=== PATIENT | male | born 1975 | race Caucasian/White ===

== ENCOUNTER 2020-01-08 13:13 | Outpatient (REF) | payer OTHER, SELFPAY ==
[2020-01-08 16:48] LABS: Estimated Average Glucose 232 mg/dL; Hemoglobin A1c % 9.7 %
[2020-01-08 17:11] LABS: Anion Gap 12 (12-20); Blood Urea Nitrogen 11 mg/dL (9-16); Calcium 8.1 mg/dL (8.4-10.2); Carbon Dioxide 27 mmol/L (22-29); Chloride 101 mmol/L (96-108); Estimated Glomerular Filt Rate > 60; Glucose Random 358 mg/dL (60-115); Potassium 4.3 mmol/l (3.3-5.1); Sodium 136 mmol/L (135-145)
[2020-01-08 17:13] LABS: Creatinine Urine 34.01 mg/dL; Microalbumin Urine < 5.0 mg/L
[2020-01-08 17:24] LABS: Syphilis Screen Nonreactive (Nonreactive)
[2020-01-09 02:30] LABS: CT PCR NOT DETECTED (Not Detect.); NG PCR NOT DETECTED (Not Detect.)
[2020-01-09 08:34] LABS: HBc Num1 0.16 S/CO (0.00-0.79); HBsAGNum1 0.19 S/CO (0.00-0.99); HIV AB/AG Nonreactive (Nonreactive); HIV Num 1 0.12 S/CO (0.00-0.99); Hepatitis B Core Antibody Nonreactive (Nonreactive); Hepatitis B Surface Antigen Negative (Negative); ~Hepatitis B Surface Antibody REACTIVE (Nonreactive); ~Hepatitis C Antibody Nonreactive (Nonreactive)
[2020-01-09 09:06] LABS: Herpes Simplex Type 2 IgG <0.90 index
[2020-01-11 08:15] LABS: Hepatitis A Antibody IgM 0.18 Index (0-0.79); ~Hepatitis A Antibody IgM Nonreactive (Nonreactive)
== END 2020-01-08 13:14 | disposition home or self-care (01) ==
LOC: HO.HMGCLDS 13:13
PROVIDERS: PCP Internal Medicine; Visit Provider Internal Medicine
DX: G25.81 Restless legs syndrome (principal); E55.9 Vitamin D deficiency, unspecified; K21.9 Gastro-esophageal reflux disease without esophagitis; F33.9 Major depressive disorder, recurrent, unspecified; I10 Essential (primary) hypertension; E78.9 Disorder of lipoprotein metabolism, unspecified; E13.9 Other specified diabetes mellitus without complications; A64 Unspecified sexually transmitted disease
CPT/HCPCS: 80048; 82043; 83036; 86695; 86696; 86704; 86706; 86709; 86780; 86803; 87340; 87389; 87491; 87591

== ENCOUNTER 2020-01-09 11:21 | Outpatient (REF) | payer OTHER, SELFPAY ==
--- NOTE | 2020-01-09 11:27 | XR_ITS ---
EXAMINATION: XR BILATERAL HIPS WITH AP PELVIS CLINICAL INFORMATION: Pain in right hip COMPARISON: None TECHNIQUE: AP view of the pelvis with AP and frog-leg lateral views of both hips FINDINGS: No fracture or dislocation seen. There is mild degenerative arthrosis of the right hip with superior acetabular sclerosis and osteophytosis. Minimal degenerative changes of the left hip. There is enthesopathy at the left greater trochanter. Sacroiliac joints are patent. XR/XR hip BI w PEL1V IMPRESSION: Mild degenerative changes bilaterally, as described above.
--- NOTE | 2020-01-09 11:27 | XR_ITS ---
EXAMINATION: XR LUMBOSACRAL SPINE CLINICAL INFORMATION: Low back pain COMPARISON: None TECHNIQUE: AP and lateral views of the lumbar spine and lateral view of the lumbosacral junction. FINDINGS: There is transitional lumbosacral anatomy. 5 nonrib-bearing lumbar type vertebral bodies are seen. The next segment is transitional, nearly fully sacralized on the left but with a prominent transverse process on the right. This appears to be a sixth lumbar vertebra with a full sized L6-S1 disc space. There is a suggestion of mild lower lumbar facet arthropathy but no compression fracture is seen. There is mild anterior osteophytosis at L4-5 XR/XR lumbar spine 2-3V IMPRESSION: Transitional lumbosacral anatomy as described above. Recommend careful anatomic localization prior to any intervention or surgery. There is lower lumbar facet arthropathy. No acute osseous abnormality.
== END 2020-01-09 11:22 | disposition home or self-care (01) ==
LOC: HO.HMGCX 11:21
PROVIDERS: PCP Internal Medicine; Visit Provider Internal Medicine
DX: M25.551 Pain in right hip (principal); M54.5 Low back pain
CPT/HCPCS: 72100; 73521

== ENCOUNTER 2020-09-20 14:14 | Outpatient (REF) | payer OTHER, SELFPAY ==
[2020-09-20 16:37] LABS: MANUAL DIFF FLAG NO
[2020-09-20 16:41] LABS: Basophils Percent Auto 0.3 % (0-2); Eosinophils Absolute Auto 0.3 X10*3/uL (0.0-0.4); Eosinophils Percent Auto 2.6 % (0-4); Hematocrit 43.5 % (42-52); Imm Gran Abs Auto 0.03 X10*3/uL (0.00-0.03); Imm Gran Pct Auto 0.3 % (0.0-0.4); Lymphocytes Absolute Auto 1.6 X10*3/uL (1.2-4.9); Lymphocytes Percent Auto 16.1 % (20-40); Mean Corpuscular HGB Conc 34.5 g/dl (31.0-36.0); Mean Corpuscular Hemoglobin 29.7 pg (27.0-33.0); Mean Corpuscular Volume 86.1 fL (80-98); Mean Platelet Volume 12.2 fL (9.4-12.4); Monocytes Absolute Auto 0.5 X10*3/uL (0.1-1.2); Monocytes Percent Auto 4.6 % (2-11); Neutrophils Absolute Auto 7.5 X10*3/uL (2.0-8.3); Neutrophils Percent Auto 76.1 % (45-73); Platelet Count 197 X10*3/uL (160-400); Red Blood Count 5.05 X10*6/uL (4.60-5.80); Red Cell Distribution Width 12.7 % (11.0-16.0); White Blood Count 9.9 X10*3/uL (4.8-10.8)
[2020-09-20 16:47] LABS: Estimated Average Glucose 312 mg/dL; Hemoglobin A1c % 12.5 %
[2020-09-20 17:06] LABS: Creatinine Urine 28.97 mg/dL; Microalbumin Urine < 5.0 mg/L
[2020-09-20 18:56] LABS: Alanine Aminotransferase 60 U/L (0-40); Albumin Level 4.1 g/dL (3.5-5.0); Alkaline Phosphatase 125 U/L (39-117); Anion Gap 13 (12-20); Aspartate Amino Transferase 51 U/L (5-37); Bilirubin Total 0.7 mg/dL (0.0-1.0); Blood Urea Nitrogen 10 mg/dL (9-16); Calcium 8.7 mg/dL (8.4-10.2); Carbon Dioxide 26 mmol/L (22-29); Chloride 100 mmol/L (96-108); Estimated Glomerular Filt Rate > 60; Glucose Random 509 mg/dL (60-115); Potassium 4.4 mmol/L (3.3-5.1); Sodium 135 mmol/L (135-145); Total Protein 6.8 g/dL (6.5-8.0)
[2020-09-21 08:26] LABS: LDL Cholesterol Direct 82 mg/dL (<100)
== END 2020-09-20 14:15 | disposition home or self-care (01) ==
LOC: HO.HMGCLDS 14:14
PROVIDERS: PCP Internal Medicine; Visit Provider Internal Medicine
DX: E11.21 Type 2 diabetes mellitus with diabetic nephropathy (principal); E66.09 Other obesity due to excess calories; E78.9 Disorder of lipoprotein metabolism, unspecified; F33.9 Major depressive disorder, recurrent, unspecified; G25.81 Restless legs syndrome; I10 Essential (primary) hypertension; K21.9 Gastro-esophageal reflux disease without esophagitis; R80.9 Proteinuria, unspecified
CPT/HCPCS: 36415; 80053; 82043; 83036; 83721; 85025

== ENCOUNTER 2021-10-21 13:29 | Outpatient (REF) | payer OTHER, SELFPAY ==
[2021-10-21 17:42] LABS: Alanine Aminotransferase 33 U/L (0-40); Albumin Level 3.9 g/dL (3.5-5.0); Alkaline Phosphatase 96 U/L (39-117); Anion Gap 13 (12-20); Aspartate Amino Transferase 29 U/L (5-37); Blood Urea Nitrogen 9 mg/dL (9-16); Calcium 8.6 mg/dL (8.4-10.2); Carbon Dioxide 29 mmol/L (22-29); Chloride 99 mmol/L (96-108); Estimated Glomerular Filt Rate > 60; Glucose Random 295 mg/dL (60-115); Potassium 4.5 mmol/L (3.3-5.1); Sodium 136 mmol/L (135-145); Total Protein 6.7 g/dL (6.5-8.0)
[2021-10-21 17:47] LABS: Estimated Average Glucose 232 mg/dL; Hemoglobin A1c % 9.7 %
[2021-10-24 06:26] LABS: LDL Cholesterol Direct 128 mg/dL (<100)
== END 2021-10-21 13:30 | disposition home or self-care (01) ==
LOC: HO.HMGCLDS 13:29
PROVIDERS: PCP Internal Medicine; Visit Provider Internal Medicine
DX: E11.65 Type 2 diabetes mellitus with hyperglycemia (principal); H53.8 Other visual disturbances
CPT/HCPCS: 36415; 80053; 83036; 83721

== ENCOUNTER → 2022-03-11 13:04 | Outpatient (BNVA) | payer OTHER, SELFPAY | PROVIDERS: PCP Internal Medicine; Visit Provider Nurse Practitioner Family | DX: R14.0 Abdominal distension (gaseous) (principal); R10.11 Right upper quadrant pain; R10.10 Upper abdominal pain, unspecified; K21.9 Gastro-esophageal reflux disease without esophagitis; K59.04 Chronic idiopathic constipation | CPT/HCPCS: 99202 ==

== ENCOUNTER 2022-03-18 15:06 | Outpatient (REF) | payer OTHER, SELFPAY ==
[2022-03-18 16:46] LABS: Hematocrit 50.1 % (42.0-52.0); Hemoglobin 17.1 g/dl (14.0-18.0); Mean Corpuscular HGB Conc 34.1 g/dl (31.0-36.0); Mean Corpuscular Hemoglobin 28.8 pg (27.0-33.0); Mean Corpuscular Volume 84.5 fL (80.0-98.0); Mean Platelet Volume 11.2 fL (9.4-12.4); Platelet Count 252 X10*3/uL (160-400); Red Blood Count 5.93 X10*6/uL (4.60-5.80); Red Cell Distribution Width 13.2 % (11.0-16.0); White Blood Count 13.1 X10*3/uL (4.8-10.8)
[2022-03-18 16:46] LABS: Appearance Urine Clear; Color Urine Dark Yellow; Glucose Urine UA Negative (Negative); Leukocyte Esterase Urine Negative (Negative); Nitrite Urine Negative (Negative); Urine Blood Negative (Negative); Urine Ketones Trace mg/dL (Negative); Urine Protein Negative (Neg-Trace)
[2022-03-18 16:51] LABS: Estimated Average Glucose 163 mg/dL; Hemoglobin A1c % 7.3 %
[2022-03-18 17:20] LABS: Alanine Aminotransferase 17 U/L (0-40); Albumin Level 4.4 g/dL (3.5-5.0); Alkaline Phosphatase 97 U/L (39-117); Anion Gap 11 (12-20); Aspartate Amino Transferase 21 U/L (5-37); Bilirubin Total 0.8 mg/dL (0.0-1.0); Blood Urea Nitrogen 9 mg/dL (9-16); Calcium 9.2 mg/dL (8.4-10.2); Carbon Dioxide 27 mmol/L (22-29); Chloride 105 mmol/L (96-108); Estimated Glomerular Filt Rate > 60; Glucose Random 104 mg/dL (60-115); Potassium 3.8 mmol/L (3.3-5.1); Sodium 139 mmol/L (135-145); Total Protein 7.3 g/dL (6.5-8.0)
[2022-03-18 17:42] LABS: TSH reflex Free T4 1.73 uIU/mL (0.32-4.0)
[2022-03-22 09:52] LABS: Transglutaminase Ab IgG <1.0 U/mL; Transglutaminase IgA <1.0 U/mL
== END 2022-03-18 15:07 | disposition home or self-care (01) ==
LOC: HO.HMGCLDS 15:06
PROVIDERS: Nurse Practitioner Family; PCP Internal Medicine; Visit Provider Internal Medicine
DX: K59.00 Constipation, unspecified (principal); R10.9 Unspecified abdominal pain; E78.9 Disorder of lipoprotein metabolism, unspecified; I10 Essential (primary) hypertension; F33.9 Major depressive disorder, recurrent, unspecified; K21.9 Gastro-esophageal reflux disease without esophagitis; E11.21 Type 2 diabetes mellitus with diabetic nephropathy; R80.9 Proteinuria, unspecified
CPT/HCPCS: 36415; 80053; 81003; 83036; 84443; 85027; 86364

== ENCOUNTER 2022-03-19 11:36 | Outpatient (REF) | payer OTHER, SELFPAY ==
[2022-03-28 17:28] LABS: Pancreatic Elastase-1 >500 mcg/g
== END 2022-03-19 11:37 | disposition home or self-care (01) ==
LOC: HO.LNP 11:36
PROVIDERS: Visit Provider Nurse Practitioner Family
DX: R10.9 Unspecified abdominal pain (principal)
CPT/HCPCS: 82656

== ENCOUNTER 2022-03-25 12:40 | Outpatient (REF) | payer OTHER, SELFPAY ==
--- NOTE | 2022-03-25 10:30 | EMG_ITS ---
Please see scanned EMG / Nerve Conduction Report. MTDD
== END 2022-03-25 12:41 | disposition home or self-care (01) ==
LOC: HO.NEURO 12:40
PROVIDERS: PCP Internal Medicine; Visit Provider Internal Medicine
DX: R20.2 Paresthesia of skin (principal)
CPT/HCPCS: 95885; 95913

== ENCOUNTER → 2022-04-01 13:45 | Outpatient (BNVA) | payer OTHER, SELFPAY | PROVIDERS: PCP Internal Medicine; Visit Provider Psychiatry & Neurology Neurology | DX: R20.2 Paresthesia of skin (principal); R06.83 Snoring; M54.2 Cervicalgia; G47.33 Obstructive sleep apnea (adult) (pediatric); G47.10 Hypersomnia, unspecified; F41.9 Anxiety disorder, unspecified; F32.A Depression, unspecified | CPT/HCPCS: 99202 ==

== ENCOUNTER 2022-04-03 09:52 | Outpatient (REF) | payer OTHER, SELFPAY ==
--- NOTE | ~2022-04-03 | US_ITS ---
EXAMINATION: US ABDOMEN COMPLETE CLINICAL INFORMATION: Unspecified abdominal pain. COMPARISON: None TECHNIQUE: Real-time imaging of the abdominal viscera. FINDINGS: PANCREAS: Normal. ABDOMINAL AORTA: The proximal, mid, and distal segments are normal in caliber. INFERIOR VENA CAVA: Visualized portions are normal. LIVER: There is mild hepatomegaly, with a longitudinal span of 17.5 cm. The liver contour is normal. There is diffuse increased liver parenchymal echogenicity. No focal hepatic lesion. There is no intrahepatic biliary duct dilatation seen. GALLBLADDER: Normal. The gallbladder is physiologically distended without evidence of stones, sludge, polyps, wall thickening or pericholecystic fluid. COMMON BILE DUCT: Normal in caliber measuring 0.2 cm in diameter. RIGHT KIDNEY: Normal. No hydronephrosis. No renal calculi or focal parenchymal lesions. The kidney measures 13.2 cm in maximum dimension. LEFT KIDNEY: Normal. No hydronephrosis. No renal calculi or focal parenchymal lesions. The kidney measures 11.8 cm in maximum dimension. SPLEEN: Normal. The spleen measures 11.1 cm in maximum dimension. FREE FLUID: None. US/US abdomen complete IMPRESSION: 1. There is mild hepatomegaly. 2. There is generalized increase in hepatic echotexture, consistent with fatty infiltration or hepatocellular disease. Please correlate clinically. No focal hepatic mass or intrahepatic biliary dilatation is seen.
== END 2022-04-03 09:53 | disposition home or self-care (01) ==
LOC: HO.US 09:52
PROVIDERS: Visit Provider Nurse Practitioner Family
DX: R10.9 Unspecified abdominal pain (principal)
CPT/HCPCS: 76700

== ENCOUNTER 2022-04-13 | Outpatient (REF) | payer OTHER, SELFPAY ==
[2022-04-15 12:05] LABS: H Pylori Breath Test Negative (Negative)
== END 2022-04-13 00:01 | disposition home or self-care (01) ==
LOC: HO.LNP
PROVIDERS: Visit Provider Nurse Practitioner Family
DX: Z11.0 Encounter for screening for intestinal infectious diseases (principal)
CPT/HCPCS: 83013

== ENCOUNTER → 2022-04-13 11:45 | Outpatient (BNVA) | payer OTHER, SELFPAY | PROVIDERS: PCP Internal Medicine; Visit Provider Nurse Practitioner Family | DX: Z11.0 Encounter for screening for intestinal infectious diseases (principal) | CPT/HCPCS: 99211 ==

== ENCOUNTER → 2022-06-10 12:54 | Outpatient (BNVA) | payer OTHER, SELFPAY | PROVIDERS: PCP Internal Medicine; Visit Provider Nurse Practitioner Family | DX: K59.04 Chronic idiopathic constipation (principal); K21.9 Gastro-esophageal reflux disease without esophagitis; R14.0 Abdominal distension (gaseous) | CPT/HCPCS: 99212 ==

== ENCOUNTER 2022-09-16 12:53 | Outpatient (AMB) | payer OTHER, SELFPAY ==
[2022-09-16 12:51] VITALS: BP 122/80; PULSE 74; O2SAT 96; BMI 36.1
--- NOTE | 2022-09-16 12:51 | A.OFFPC_ITS ---
Vital Signs 09/16/22 12:51 Height 5 ft 11 in Weight 259 lb BMI 36.1 BP 122/80 Blood Pressure Location Lt brachial Position Sitting Pulse 74 Pulse Source Pulse Oximeter Pulse Oximetry (%) 96 Oxygen Delivery Method Room Air Intake Visit Reasons: 3m follow up Allergies No Known Allergies Allergy (Verified 06/12/22 10:38) Medication List - Last Reconciled 09/16/22 by Yadira Wilder MD amlodipine 10 mg PO DAILY 90 days blood sugar diagnostic (FreeStyle Lite Strips) Use to check blood sugars three times daily and if symptomatic with hypo/hyperglycemia cholecalciferol (vitamin D3) 25 mcg PO DAILY 90 days citalopram 40 mg PO DAILY docusate sodium 100 mg PO BEDTIME famotidine 40 mg PO DAILY gabapentin 1 cap qam 2 caps qhs orally; 90 days insulin glargine U-300 conc 35 units in the morning and 25 units at night 30 days lancets (FreeStyle Lancets) Use to check blood sugars three times daily and if symptomatic with hypo/hyperglycemia nystatin 1 appl topical DAILY 30 days pantoprazole 20 mg PO BID 90 days pen needle, diabetic (Easy Comfort Pen Ragan) Once at night polyethylene glycol 3350 (Miralax) 17 grams PO DAILY Tobacco use date assessed: 09/16/22 Dental Screening Dental Screen Date: 09/16/22 Did you have a dental visit in the last 12 months?: No Was dental information given to patient?: No HPI 3m follow up HPI Details Patient is a 47-year-old gentleman came in today for his regular follow-up appointment Diabetes mellitus: Patient is on 25 units of long-acting insulin at night and 35 units in the morning patient did not do the labs he was supposed to before this visit his Hba1c is 7.4 today He has seen sleep specialist and is now using the CPAP machine h Taking sertraline 25 mg for anxiety patient is feeling better Gabapentin 200 mg at night through Dr. Porras neurology Obesity with a BMI of 33.8 patient need to lose weight he is trying Blood pressure is stable patient is on amlodipine 10 mg tolerating medication GERD is stable with pantoprazole 20 mg b.i.d. Constipation is stable with stool softeners and fiber supplement. He has gained more weight his BMI is down 36.1 Complaining of burning sensation, patient says that it started afte hav oral sex with his girlfriend who had vaginitis He has used list strain mouthwash which has caused burning sensation in his tongue. On exam he has white coating over his tongue I have sent in anti fungal lows inches to see if that will help the patient. He is to get back to me with update after finishing the lozenges. Follow-up 3 months [facility] Medical History Anxiety Chronic GERD Depression Depression, major, recurrent Diabetes 1.5, managed as type 2 Diabetic nephropathy Herpes simplex type 1 antibody positive Hip pain, right Hypersomnia Hypertension, essential Lipid disorder Lumbar pain Microalbuminuria Neck pain Obstructive sleep apnea Paresthesias Restless leg syndrome Snoring Vitamin D deficiency Surgical History H/O knee surgery History of esophagogastroduodenoscopy (EGD) Hx of colonoscopy No pertinent past surgical history Family History Father Stroke Diabetes mellitus Kidney disease Mother HTN (hypertension) Brother No problems noted. Sister No problems noted. Sister No problems noted. Sister No problems noted. Social History Housing: Apartment Alcohol intake: current Alcohol intake frequency: a few times a month Patient Tobacco Use Status: Former Tobacco user Cigarettes Per Day: 1 e-Cigarette/Vaping Use: Former Use (vape) Substance Use Type: Marijuana Current occupational status: employed Cognitive needs: No Hearing needs: No Vision needs: Yes Questionnaire Thrive Questionnaire Date Thrive assessed: 03/18/22 AUDIT C Alcohol Use Questionnaire (AUDIT-C) 1. How often do you have a drink containing alcohol?: Monthly or less 2. How many drinks containing alcohol do you have on a typical day when you are drinking?: 1 or 2 3. How often do you have six or more drinks on one occasion?: Never Total Score: 1 ELIZABETH-7 AMB Questionnaire ELIZABETH-7 Date ELIZABETH - 7 assessed: 03/18/22 Source: Developed by Drs. Bakari Escobedo, Shireen Riley, Luis Leo and colleagues, with an educational janay from [employer]. Review of Systems Const Denies chills and Denies fever(s) ENT Denies epistaxis and Denies nasal discharge Card Denies chest pain Resp Denies chest congestion, Denies cough and Denies hemoptysis GI Denies diarrhea and Denies nausea Skin/Breast Denies rash Neuro Reports no additional complaints Psych Reports no additional complaints Endo Reports no additional complaints Physical exam (Primary Care) Vital Signs: Last Vital Signs Pulse 74 09/16/22 12:51 BP 122/80 09/16/22 12:51 Pulse Ox 96 09/16/22 12:51 Oxygen Delivery Method Room Air 09/16/22 12:51 BMI result Body Mass Index 36.1 Tobacco/Smoking Status: Tobacco use Status Tobacco use date assessed 09/16/22 09/16/22 12:57 Patient Tobacco Use Status Former Tobacco user 09/16/22 12:52 e-Cigarette/Vaping Use Former Use (vape) 09/16/22 12:57 Thrive Assessment: Date of Thrive Assessment Date Thrive assessed 03/18/22 09/16/22 12:52 Const General: cooperative, comfortable and no acute distress Orientation/consciousness: patient oriented x3 HENMT Head: Yes normocephalic Mouth/tongue images: 1. White coating on the tongue Eyes General: appearance normal, both eyes and all related structures Neck Neck: Yes supple Resp Effort & Inspection: normal respiratory effort, no cough and no stridor Cardio Rhythm: regular rhythm Heart sounds: S1 normal heart sound present and S2 normal heart sound present Skin General skin exam: turgor normal Neuro General: patient oriented x3, tone normal and moves all extremities Extrem Right lower extremity: no edema Left lower extremity: no edema Results AMB Hemoglobin A1c AMB Hemoglobin A1c 7.4 % Last Edit by Niru Herring CMA on 09/16/22 13:10 Results Reviewed Results Reviewed: Laboratory Last Values Hgb A1c (Clinic) 7.4 % (4.0-6.0) H 09/16/22 13:01 Assessment and Plan Assessment & Plan (1) Diabetes 1.5, managed as type 2: Code(s): E13.9 - Other specified diabetes mellitus without complications (2) Lipid disorder: Code(s): E78.9 - Disorder of lipoprotein metabolism, unspecified (3) Hypertension, essential: Code(s): I10 - Essential (primary) hypertension (4) Depression, major, recurrent: Code(s): F33.9 - Major depressive disorder, recurrent, unspecified (5) Chronic GERD: Code(s): K21.9 - Gastro-esophageal reflux disease without esophagitis (6) Diabetic nephropathy: Code(s): E11.21 - Type 2 diabetes mellitus with diabetic nephropathy (7) Microalbuminuria: Code(s): R80.9 - Proteinuria, unspecified (8) Onychomycosis: Code(s): B35.1 - Tinea unguium Plan Patient is a 47-year-old gentleman came in today for his regular follow-up appointment Diabetes mellitus: Patient is on 25 units of long-acting insulin at night and 35 units in the morning patient did not do the labs he was supposed to before this visit his Hba1c is 7.4 today He has seen sleep specialist and is now using the CPAP machine h Taking sertraline 25 mg for anxiety patient is feeling better Gabapentin 200 mg at night through Dr. Porras neurology Obesity with a BMI of 33.8 patient need to lose weight he is trying Blood pressure is stable patient is on amlodipine 10 mg tolerating medication GERD is stable with pantoprazole 20 mg b.i.d. Constipation is stable with stool softeners and fiber supplement. He has gained more weight his BMI is down 36.1 Complaining of burning sensation, patient says that it started afte hav oral sex with his girlfriend who had vaginitis He has used list strain mouthwash which has caused burning sensation in his tongue. On exam he has white coating over his tongue I have sent in anti fungal lows inches to see if that will help the patient. He is to get back to me with update after finishing the lozenges. Follow-up 3 months Orders: Orders Microalbumin, Random (w Creat) Today E13.9 - Other specified diabetes mellitus without complications, E78.9 - Disorder of lipoprotein metabolism, unspecified, F33.9 - Major depressive disorder, recurrent, unspecified, I10 - Essential (primary) hypertension Comprehensive [place]. Panel Fast Today E11.21 - Type 2 diabetes mellitus with diabetic nephropathy, E13.9 - Other specified diabetes mellitus without complications, E78.9 - Disorder of lipoprotein metabolism, unspecified, F33.9 - Major depressive disorder, recurrent, unspecified, I10 - Essential (primary) h ypertension, K21.9 - Gastro-esophageal reflux disease without esophagitis, R80.9 - Proteinuria, unspecified Lipid Panel Today E11.21 - Type 2 diabetes mellitus with diabetic nephropathy, E13.9 - Other specified diabetes mellitus without complications, E78.9 - Disorder of lipoprotein metabolism, unspecified, F33.9 - Major depressive disorder, recurrent, unspecified, I10 - Essential (primary) hypertension, K21.9 - Gastro-esophageal reflux disease without esophagitis, R80.9 - Proteinuria, unspecified Complete Blood Count Auto Diff Today E11.21 - Type 2 diabetes mellitus with diabetic nephropathy, E13.9 - Other specified diabetes mellitus without complications, E78.9 - Disorder of lipoprotein metabolism, unspecified, F33.9 - Major depressive disorder, recurrent, unspecified, I10 - Essential (primary) hypertension, K21.9 - Gastro-esophageal reflux disease without esophagitis, R80.9 - Proteinuria, unspecified AMB Hemoglobin A1c Today E11.65 - Type 2 diabetes mellitus with hyperglycemia Medications: New clotrimazole 10 mg mucous membrane TID 15 tabs 0RF 5 days B37.0 - Candidal stomatitis Coding Level of Care Code Est Pt Level 4 (78426) Diagnoses Diabetes 1.5, managed as type 2 E13.9 Lipid disorder E78.9 Hypertension, essential I10 Depression, major, recurrent F33.9 Chronic GERD K21.9 Diabetic nephropathy E11.21 Microalbuminuria R80.9 Onychomycosis B35.1
== END 2022-09-16 14:13 | disposition home or self-care (01) ==
PROVIDERS: Visit Provider Internal Medicine
DX: E13.9 Other specified diabetes mellitus without complications (principal); I10 Essential (primary) hypertension; F33.9 Major depressive disorder, recurrent, unspecified; K21.9 Gastro-esophageal reflux disease without esophagitis; E11.21 Type 2 diabetes mellitus with diabetic nephropathy; E78.9 Disorder of lipoprotein metabolism, unspecified; R80.9 Proteinuria, unspecified; B35.1 Tinea unguium; E11.65 Type 2 diabetes mellitus with hyperglycemia
CPT/HCPCS: 83036; 99214

== ENCOUNTER 2022-09-16 13:14 | Outpatient (REF) | payer OTHER, SELFPAY ==
[2022-09-16 16:11] LABS: MANUAL DIFF FLAG NO
[2022-09-16 16:20] LABS: Basophils Percent Auto 0.4 % (0-2); Eosinophils Absolute Auto 0.2 X10*3/uL (0.0-0.4); Eosinophils Percent Auto 1.9 % (0-4); Hematocrit 44.5 % (42.0-52.0); Hemoglobin 15.3 g/dl (14.0-18.0); Imm Gran Abs Auto 0.02 X10*3/uL (0.00-0.03); Imm Gran Pct Auto 0.2 % (0.0-0.4); Lymphocytes Absolute Auto 1.8 X10*3/uL (1.2-4.9); Lymphocytes Percent Auto 18.8 % (20-40); Mean Corpuscular HGB Conc 34.4 g/dl (31.0-36.0); Mean Corpuscular Hemoglobin 29.5 pg (27.0-33.0); Mean Corpuscular Volume 85.7 fL (80.0-98.0); Mean Platelet Volume 11.5 fL (9.4-12.4); Monocytes Absolute Auto 0.6 X10*3/uL (0.1-1.2); Monocytes Percent Auto 5.8 % (2-11); Neutrophils Absolute Auto 7.1 x10*3/uL (2.0-8.3); Neutrophils Percent Auto 72.9 % (45-73); Platelet Count 212 X10*3/uL (160-400); Red Blood Count 5.19 X10*6/uL (4.60-5.80); White Blood Count 9.7 X10*3/uL (4.8-10.8)
[2022-09-16 16:50] LABS: Creatinine Urine 141.73 mg/dL; Microalbum/Creatinine Ratio Ur 6.3 ug/mg cr
[2022-09-17 02:41] LABS: Alanine Aminotransferase 18 U/L (0-40); Alkaline Phosphatase 97 U/L (39-117); Anion Gap 10 (12-20); Aspartate Amino Transferase 21 U/L (5-37); Blood Urea Nitrogen 10 mg/dL (9-16); Calcium 8.5 mg/dL (8.4-10.2); Carbon Dioxide 27 mmol/L (22-29); Chloride 104 mmol/L (96-108); Cholesterol 198 mg/dL; Estimated Glomerular Filt Rate > 60; Glucose Fasting 179 mg/dL (60-99); HDL Cholesterol 32 mg/dL; LDL Cholesterol Calculated 131 mg/dl; Potassium 4.2 mmol/L (3.3-5.1); Sodium 137 mmol/L (135-145); Total Protein 6.9 g/dL (6.5-8.0); Triglycerides 176 mg/dL
== END 2022-09-16 13:15 | disposition home or self-care (01) ==
LOC: HO.HMGCLDS 13:14
PROVIDERS: PCP Internal Medicine; Visit Provider Internal Medicine
DX: E11.21 Type 2 diabetes mellitus with diabetic nephropathy (principal); E78.9 Disorder of lipoprotein metabolism, unspecified; F33.9 Major depressive disorder, recurrent, unspecified; I10 Essential (primary) hypertension; K21.9 Gastro-esophageal reflux disease without esophagitis; R80.9 Proteinuria, unspecified
CPT/HCPCS: 36415; 80053; 80061; 82043; 85025

== ENCOUNTER 2023-05-25 15:42 | Outpatient (AMB) | payer OTHER, SELFPAY ==
[2023-05-25 15:54] VITALS: BP 140/86; PULSE 75; BMI 36.6
--- NOTE | 2023-05-25 15:54 | MHC.OFFVIS ---
Intake Vital Signs 05/25/23 15:54 Height 5 ft 11 in Weight 262 lb 5.601 oz BMI 36.6 BP 140/86 H Blood Pressure Location Rt brachial Position Sitting Pulse 75 Intake Visit Reasons: follow up seen at [facility] Intake Note: Patient presents to in offfice visit today in follow up after ED visit. CC: Patient was seen at [facility] ED on 03/24/23 with c// constipaion and abdominal pain. Patient states that he was told he might have UC and Chron's. Patient placed on a course of Augmentin which he completed. He states he feels the same and c/o upper abdominal pain, nausea, dizziness, weakness, tirednesses, and constipation that sometimes fluctuates to diarrhea. Patient states that sometimes when he is having a BM he feels dizzy, starts to sweat, and has SOB. Wire Hanger Required: No Accompanied by: Self / Same As Patient Allergies No Known Allergies Allergy (Verified 05/25/23 16:04) HPI follow up seen at [facility] HPI Details LAST VISIT: Abdominal bloating Occasional abdominal bloating if he does not have a bowel movement and couple days. Patient was encouraged to take MiraLax and stool softener daily Chronic GERD Continue current dose of pantoprazole. Patient was encouraged to lose weight. Avoid dietary triggers late night snacking. Staying upright for minimum 3 hours after meals discussed with patient Chronic idiopathic constipation Continue MiraLax and Colace. Patient was encouraged to increase fluid intake and activity to promote better bowel motility. Patient will return in 3 months, sooner on as needed basis. Patient is agreeable to this plan and verbalizes understanding of instructions. He was given the opportunity to ask questions and all questions answered. ? Thank you for allowing me to participate in his care Plan Medications Discontinued famotidine Discontinued Reason: Doctor's Order 20 mg PO BID 60 tabs 3RF K29.70 - Gastritis, unspecified, without bleeding TODAY'S VISIT Patient is here today for following up ED visit. Patient was seen in March at [facility] for severe abdominal discomfort. Patient had no BM for 15 days. Abdominal pain and discomfort. CT scan showed no acute processes except for mild colonic wall thickening that could present colitis. No true constipation was identified on CT scan. However this was done without oral contrast. Patient was given script for senna and antibiotics. Today patient reports that he continues to be constipated moving his bowels little better, however he continues to have no BM for 3-4 days. Patient states that most of the time he has watery stools. Reports postprandial abdominal bloating. Rarely has a normal bowel movement. Patient was seen last May and was supposed to follow-up to discuss going for colonoscopy. Patient states that he had a colonoscopy about 5 years ago. Patient denies melena, hematochezia, unintentional weight loss or ribbon like stools. Patient does report that he has external hemorrhoids that are increased in size when he has frequent loose stools. Patient reports dyspepsia without dysphagia or odynophagia. Patient states that he was placed on low-dose pantoprazole twice a day, however he continues to have a postprandial epigastric pain. Patient reports that he has been taking care of his elderly mom who is bed-bound. Patient denies any fever or chills. Not on any particular diet. His symptoms of postprandial abdominal bloating and loose stools are not always associated to meals. Patient is aware that he is unable to have any cheese or lactose as his symptoms of acid reflux and loose stools will get worse. [facility] Medical History Paresthesias Depression Anxiety Neck pain Hypersomnia Snoring Obstructive sleep apnea Herpes simplex type 1 antibody positive Lumbar pain Hip pain, right Microalbuminuria Diabetic nephropathy Restless leg syndrome Vitamin D deficiency Chronic GERD Depression, major, recurrent Hypertension, essential Lipid disorder Diabetes 1.5, managed as type 2 Surgical History History of esophagogastroduodenoscopy (EGD) Hx of colonoscopy H/O knee surgery No pertinent past surgical history Family History Father Stroke Diabetes mellitus Kidney disease Mother HTN (hypertension) Brother No problems noted. Sister No problems noted. Sister No problems noted. Sister No problems noted. Social History Housing: Apartment Alcohol intake: current Alcohol intake frequency: a few times a month Patient Tobacco Use Status: Former Tobacco user Cigarettes Per Day: 1 e-Cigarette/Vaping Use: Former Use (vape) Substance Use Type: Marijuana Current occupational status: employed Cognitive needs: No Hearing needs: No Vision needs: Yes Review of Systems Const Denies weight gain and Denies weight loss ENT Reports no additional complaints, Denies dysphagia and Denies odynophagia Card Reports no additional complaints Resp Reports no additional complaints GI Reports abdominal pain, Denies belching, Denies melena, Reports bloating, Reports constipation, Denies dysphagia, Denies excessive flatus, Denies dyspepsia, Reports heartburn, Denies diarrhea, Reports loose stools, Denies nausea, Denies odynophagia and Denies vomiting Reports no additional complaints Musc Reports no additional complaints Neuro Reports no additional complaints Psych Reports no additional complaints Endo Reports no additional complaints Physical Exam Vital Signs: Last Vital Signs Pulse 75 05/25/23 15:54 BP 140/86 H 05/25/23 15:54 BMI result Body Mass Index 36.6 Const General: healthy appearing and no acute distress Nutritional Appearance: obese Orientation/consciousness: patient oriented x3 Resp Effort & Inspection: normal respiratory effort, able to speak in complete sentences, no tracheal deviation and symmetric chest movement Auscultation: clear to auscultation bilaterally Cardio Rate: regular rate GI Inspection: Yes normal to inspection, No distended and Yes obesity Palpation (GI): Soft to palpation, not firm, nontender and No hepatosplenomegaly present Auscultation: normal bowel sounds General: Yes no CVA tenderness Back/Spine/Pelvis Back: no CVA tenderness Skin General skin exam: elasticity normal, turgor normal and dry skin Neuro General: patient oriented x3 Psych Appearance: grossly normal Mental Status: mental status grossly normal Assessment & Plan Assessment & Plan (1) Abdominal bloating: Code(s): R14.0 - Abdominal distension (gaseous) (2) Chronic GERD: Code(s): K21.9 - Gastro-esophageal reflux disease without esophagitis (3) Chronic idiopathic constipation: Code(s): K59.04 - Chronic idiopathic constipation (4) Postprandial abdominal bloating: Code(s): R14.0 - Abdominal distension (gaseous) (5) Postprandial diarrhea: Code(s): K52.9 - Noninfective gastroenteritis and colitis, unspecified (6) Postprandial epigastric pain: Code(s): R10.13 - Epigastric pain Plan Most likely patient's cause for diarrhea is that he is actually very constipated and does not have enough fiber. Bulking his stools with fiber. Dulcolax will be ordered for him at bedtime. Will rule out inflammatory bowel disease, malabsorption. Will rule out H pylori. Will treat empirically if positive. Patient will return in 6 months. Depending on what his results will show patient in the meantime will be scheduled for colonoscopy. Will change pantoprazole to 40 daily and famotidine at bedtime. Discussed with patient avoiding dietary triggers and late night snacking. Staying upright for minimum 3 hours after meals discussed with patient. Patient will call our office if he will continue to have symptoms and we will send him for colonoscopy and upper endoscopy. Patient is agreeable to this plan and verbalizes understanding of instructions. He was given the opportunity to ask questions and all questions answered. Thank you for allowing me to participate in his care Orders: Orders Calprotectin, Fecal Today R15.9 - Full incontinence of feces Hemoglobin A1c Today E11.9 - Type 2 diabetes mellitus without complications Vitamin B12 and Folate Today R19.7 - Diarrhea, unspecified C Reactive Protein Today K58.9 - Irritable bowel syndrome without diarrhea H pylori Ag Stool Today K21.9 - Gastro-esophageal reflux disease without esophagitis Vitamin D 25-OH (D2 and D3) Today E55.9 - Vitamin D deficiency, unspecified Medications: New docusate sodium 100 mg PO DAILY 30 caps 3RF K59.00 - Constipation, unspecified bisacodyl (Dulcolax (bisacodyl)) 10 mg (2 x 5 mg) PO BEDTIME 180 tabs 4RF pantoprazole take one tablet half an hour before breakfast 40 mg PO DAILY 30 tabs 2RF K21.9 - Gastro-esophageal reflux disease without esophagitis methylcellulose (laxative) (Citrucel) take it with full glass of water 500 mg PO DAILY 90 tabs 2RF K59.00 - Constipation, unspecified Refilled famotidine 40 mg PO DAILY 30 tabs 3RF Discontinued docusate sodium Discontinued Reason: Duplicate 100 mg PO BEDTIME 90 caps 3RF K59.00 - Constipation, unspecified pantoprazole Discontinued Reason: Doctor's Order 20 mg PO BID 90 days 180 tabs 0RF Coding Level of Care Code Est Pt Level 4 (49111) Diagnoses Abdominal bloating R14.0 Chronic GERD K21.9 Chronic idiopathic constipation K59.04 Postprandial abdominal bloating R14.0 Postprandial diarrhea K52.9 Postprandial epigastric pain R10.13 Time Spent (min) 40 Comment 25 minutes spent with patient and additional 15 minutes spent reviewing his records
== END 2023-05-25 16:42 | disposition home or self-care (01) ==
PROVIDERS: PCP Internal Medicine; Visit Provider Nurse Practitioner Family
DX: R14.0 Abdominal distension (gaseous) (principal); K21.9 Gastro-esophageal reflux disease without esophagitis; K59.04 Chronic idiopathic constipation; K52.9 Noninfective gastroenteritis and colitis, unspecified; R10.13 Epigastric pain
CPT/HCPCS: 99214

== ENCOUNTER → 2023-05-25 15:42 | Outpatient (BNVA) | payer OTHER, SELFPAY | PROVIDERS: PCP Internal Medicine; Visit Provider Nurse Practitioner Family | DX: K21.9 Gastro-esophageal reflux disease without esophagitis (principal); K59.04 Chronic idiopathic constipation; K52.9 Noninfective gastroenteritis and colitis, unspecified; R14.0 Abdominal distension (gaseous); R10.13 Epigastric pain | CPT/HCPCS: 99212 ==

== ENCOUNTER 2023-07-02 11:42 | Outpatient (REF) | payer OTHER, SELFPAY ==
[2023-07-02 12:30] LABS: Estimated Average Glucose 237 mg/dL; Hemoglobin A1c % 9.9 % (<6.0)
[2023-07-02 13:08] LABS: C Reactive Protein 0.51 mg/dL (< or = 0.50)
[2023-07-02 13:21] LABS: Folate 5.2 ng/mL (> or = 4.0); Vitamin B12 331 pg/mL (200-900)
[2023-07-07 12:23] LABS: Vitamin D 25-OH, D2 <4 ng/mL; Vitamin D 25-OH, D3 28 ng/mL; Vitamin D 25-OH, Total 28 ng/mL (30-100)
== END 2023-07-02 11:43 | disposition home or self-care (01) ==
LOC: HO.LAB 11:42
PROVIDERS: PCP Internal Medicine; Visit Provider Nurse Practitioner Family
DX: E11.9 Type 2 diabetes mellitus without complications (principal); K58.9 Irritable bowel syndrome, unspecified; R19.7 Diarrhea, unspecified
CPT/HCPCS: 36415; 82306; 82607; 82746; 83036; 86140

== ENCOUNTER 2023-07-07 14:24 | Outpatient (AMB) | payer OTHER, SELFPAY ==
[2023-07-07 14:29] VITALS: BP 138/72; PULSE 66; O2SAT 96; BMI 36.1
--- NOTE | 2023-07-07 14:29 | A.OFFPC_ITS ---
Vital Signs 07/07/23 14:29 Height 5 ft 11 in Weight 258 lb 9 oz BMI 36.1 BP 138/72 Blood Pressure Location Rt brachial Position Sitting Pulse 66 Pulse Source Pulse Oximeter Pulse Oximetry (%) 96 Oxygen Delivery Method Room Air Intake Visit Reasons: Overdue F/u Allergies No Known Allergies Allergy (Verified 07/07/23 14:30) Medication List - Last Reconciled 07/07/23 by Yadira Wilder MD amlodipine 10 mg PO DAILY 90 days bisacodyl (Dulcolax (bisacodyl)) 10 mg (2 x 5 mg) PO BEDTIME blood sugar diagnostic (FreeStyle Lite Strips) Use to check blood sugars three times daily and if symptomatic with hypo/hyperglycemia cholecalciferol (vitamin D3) 25 mcg PO DAILY 90 days citalopram 40 mg PO DAILY clotrimazole 10 mg mucous membrane TID 5 days docusate sodium 100 mg PO DAILY famotidine 40 mg PO DAILY gabapentin 1 cap qam 2 caps qhs orally; 90 days glipizide 10 mg PO BID 90 days insulin glargine U-300 conc 35 units in the morning and 25 units at night 30 days lancets (FreeStyle Lancets) Use to check blood sugars three times daily and if s ymptomatic with hypo/hyperglycemia methylcellulose (laxative) (Citrucel) 500 mg PO DAILY nystatin 1 appl topical DAILY 30 days pantoprazole 40 mg PO DAILY pen needle, diabetic (Easy Comfort Pen [place]) Once at night pioglitazone 15 mg PO DAILY polyethylene glycol 3350 (Miralax) 17 grams PO DAILY Tobacco use date assessed: 07/07/23 Dental Screening Dental Screen Date: 07/07/23 Did you have a dental visit in the last 12 months?: Yes Did you have a dental problem in the last 6 months where you did not have access to dental care?: No Was dental information given to patient?: Patient has dentist HPI Overdue F/u HPI Details Patient is a 48-year-old gentleman came in today for his regular follow-up appointment Last time seen was August of last year, after that patient missed his appointment He tells me that couple of weeks ago his mother , he was busy taking care of Diabetes mellitus: Patient is on 25 units of long-acting insulin at night and 35 units in the morning He is also on glipizide 10 mg b.i.d. and we recently added pioglitazone 15 mg when his hemoglobin A1c came back at 9.9 Patient says that he is eating just the way he was eating before However his sugars are running around 300s I have sent Trulicity 0.75 mg once a week We will book telemedicine visit in 2 weeks to go over his blood sugars on Trulicity Taking sertraline 25 mg for anxiety Gabapentin 200 mg at night through Dr. Porras neurology CPAP machine management through neurology as well BMI is elevated patient is obese, trying to lose weight Blood pressure is stable patient is on amlodipine 10 mg tolerating medication GERD is stable with pantoprazole 20 mg b.i.d. Constipation is stable with stool softeners and fiber supplement. Follow-up 3 months add 2 weeks [facility] Medical History Paresthesias Depression Anxiety Neck pain Hypersomnia Snoring Obstructive sleep apnea Herpes simplex type 1 antibody positive Lumbar pain Hip pain, right Microalbuminuria Diabetic nephropathy Restless leg syndrome Vitamin D deficiency Chronic GERD Depression, major, recurrent Hypertension, essential Lipid disorder Diabetes 1.5, managed as type 2 Surgical History History of esophagogastroduodenoscopy (EGD) Hx of colonoscopy H/O knee surgery No pertinent past surgical history Family History Father Stroke Diabetes mellitus Kidney disease Mother HTN (hypertension) Brother No problems noted. Sister No problems noted. Sister No problems noted. Sister No problems noted. Social History Housing: Apartment Alcohol intake: current Alcohol intake frequency: a few times a month Patient Tobacco Use Status: Former Tobacco user Cigarettes Per Day: 1 e-Cigarette/Vaping Use: Former Use (vape) Substance Use Type: Marijuana Current occupational status: employed Cognitive needs: No Hearing needs: No Vision needs: Yes Questionnaire Thrive Questionnaire Date Thrive assessed: 03/18/22 ELIZABETH-7 AMB Questionnaire ELIZABETH-7 Date ELIZABETH - 7 assessed: 03/18/22 Source: Developed by Drs. Bakari Escobedo, Shireen Riley, Luis Leo and colleagues, with an educational janay from [employer]. Review of Systems Const Denies chills and Denies fever(s) ENT Denies epistaxis and Denies nasal discharge Card Denies chest pain Resp Denies chest congestion, Denies cough and Denies hemoptysis GI Denies diarrhea and Denies nausea Skin/Breast Denies rash Neuro Reports no additional complaints Psych Reports no additional complaints Endo Reports no additional complaints Physical exam (Primary Care) Vital Signs: Last Vital Signs Pulse 66 07/07/23 14:29 BP 138/72 07/07/23 14:29 Pulse Ox 96 07/07/23 14:29 Oxygen Delivery Method Room Air 07/07/23 14:29 BMI result Body Mass Index 36.1 Tobacco/Smoking Status: Tobacco use Status Tobacco use date assessed 07/07/23 07/07/23 14:32 Patient Tobacco Use Status Former Tobacco user 07/07/23 14:32 e-Cigarette/Vaping Use Former Use (vape) 07/07/23 14:32 Thrive Assessment: Date of Thrive Assessment Date Thrive assessed 03/18/22 07/07/23 14:32 Const General: cooperative, comfortable and no acute distress Orientation/consciousness: patient oriented x3 HENMT Head: Yes normocephalic Eyes General: appearance normal, both eyes and all related structures Neck Neck: Yes supple Resp Effort & Inspection: normal respiratory effort, no cough and no stridor Cardio Rhythm: regular rhythm Heart sounds: S1 normal heart sound present and S2 normal heart sound present Skin General skin exam: turgor normal Neuro General: patient oriented x3, tone normal and moves all extremities Extrem Right lower extremity: no edema Left lower extremity: no edema Assessment and Plan Assessment & Plan (1) Diabetes 1.5, managed as type 2: Code(s): E13.9 - Other specified diabetes mellitus without complications (2) Lipid disorder: Code(s): E78.9 - Disorder of lipoprotein metabolism, unspecified (3) Hypertension, essential: Code(s): I10 - Essential (primary) hypertension (4) Depression, major, recurrent: Code(s): F33.9 - Major depressive disorder, recurrent, unspecified Qualifiers: Active/Remission status: in partial remission Qualified Code(s): F33.41 - Major depressive disorder, recurrent, in partial remission (5) Chronic GERD: Code(s): K21.9 - Gastro-esophageal reflux disease without esophagitis (6) Diabetic nephropathy: Code(s): E11.21 - Type 2 diabetes mellitus with diabetic nephropathy Qualifiers: Diabetes mellitus type: type 2 Qualified Code(s): E11.21 - Type 2 diabetes mellitus with diabetic nephropathy (7) Microalbuminuria: Code(s): R80.9 - Proteinuria, unspecified Plan Patient is a 48-year-old gentleman came in today for his regular follow-up appointment Last time seen was August of last year, after that patient missed his appointment He tells me that couple of weeks ago his mother , he was busy taking care of Diabetes mellitus: Patient is on 25 units of long-acting insulin at night and 35 units in the morning He is also on glipizide 10 mg b.i.d. and we recently added pioglitazone 15 mg when his hemoglobin A1c came back at 9.9 Patient says that he is eating just the way he was eating before However his sugars are running around 300s I have sent Trulicity 0.75 mg once a week We will book telemedicine visit in 2 weeks to go over his blood sugars on Trulicity Taking sertraline 25 mg for anxiety Gabapentin 200 mg at night through Dr. Porras neurology CPAP machine management through neurology as well BMI is elevated patient is obese, trying to lose weight Blood pressure is stable patient is on amlodipine 10 mg tolerating medication GERD is stable with pantoprazole 20 mg b.i.d. Constipation is stable with stool softeners and fiber supplement. Follow-up 3 months add 2 weeks Medications: New Trulicity (dulaglutide) 0.75 mg (0.5 mL) subcut QWEEK 2 mL 0RF 30 days NS Coding Level of Care Code Est Pt Level 4 (76132) Complex EM visit Add On G2211 Diagnoses Diabetes 1.5, managed as type 2 E13.9 Lipid disorder E78.9 Hypertension, essential I10 Recurrent major depressive disorder, in partial remission F33.41 Active/Remission status: in partial remission Chronic GERD K21.9 Diabetic nephropathy associated with type 2 diabetes mellitus E11.21 Diabetes mellitus type: type 2 Microalbuminuria R80.9
== END 2023-07-07 15:01 | disposition home or self-care (01) ==
PROVIDERS: PCP Internal Medicine; Visit Provider Internal Medicine
DX: E11.21 Type 2 diabetes mellitus with diabetic nephropathy (principal); F33.41 Major depressive disorder, recurrent, in partial remission; E78.9 Disorder of lipoprotein metabolism, unspecified; I10 Essential (primary) hypertension; K21.9 Gastro-esophageal reflux disease without esophagitis; R80.9 Proteinuria, unspecified
CPT/HCPCS: 99214; G2211

== ENCOUNTER 2023-07-20 14:46 | Outpatient (REF) | payer OTHER, SELFPAY | END 2023-07-20 14:47 | disposition home or self-care (01) | LOC: HO.LNP 14:46 | PROVIDERS: Visit Provider Nurse Practitioner Family | DX: R15.9 Full incontinence of feces (principal); K21.9 Gastro-esophageal reflux disease without esophagitis | CPT/HCPCS: 83993; 87338 ==

== ENCOUNTER 2023-07-22 08:44 | Outpatient (AMB) | payer OTHER, SELFPAY ==
--- NOTE | 2023-07-22 10:41 | MHC.PC.OV ---
Intake Visit Reasons: 2WK Telehealth F/U Allergies No Known Allergies Allergy (Verified 07/07/23 14:30) Medication List - Last Reconciled 07/22/23 by Yadira Wilder MD amlodipine 10 mg PO DAILY 90 days bisacodyl (Dulcolax (bisacodyl)) 10 mg (2 x 5 mg) PO BEDTIME blood sugar diagnostic (FreeStyle Lite Strips) Use to check blood sugars three times daily and if symptomatic with hypo/hyperglycemia cholecalciferol (vitamin D3) 25 mcg PO DAILY 90 days citalopram 40 mg PO DAILY clotrimazole 10 mg mucous membrane TID 5 days docusate sodium 100 mg PO DAILY famotidine 40 mg PO DAILY gabapentin 1 cap qam 2 caps qhs orally; 90 days glipizide 10 mg PO BID 90 days insulin glargine U-300 conc 35 units in the morning and 25 units at night 30 days lancets (FreeStyle Lancets) Use to check blood sugars three times daily and if symptomatic with hypo/hyperglycemia methylcellulose (laxative) (Citrucel) 500 mg PO DAILY nystatin 1 appl topical DAILY 30 days pantoprazole 40 mg PO DAILY pen needle, diabetic (Easy Comfort Pen [place]) Once at night pioglitazone 15 mg PO DAILY polyethylene glycol 3350 (Miralax) 17 grams PO DAILY Trulicity (dulaglutide) 0.75 mg (0.5 mL) subcut QWEEK 30 days NS Tobacco use date assessed: 07/07/23 Dental Screening Dental Screen Date: 07/07/23 HPI 2WK Telehealth F/U HPI Details this is a telemed apt Patient has uncontrol diabetes trulicity injection was sent at his last visit patient has started taking that sugars have been improved He has chronic abdominal pain Right upper quadrant pt is seeing Gastro at [facility] he is requesting labs, which I have ordered for him he has just done stool studies thru gastro, results not available yet he also would like to have STD check having dysurea off and on, I have added UA as well [facility] Medical History Paresthesias Depression Anxiety Neck pain Hypersomnia Snoring Obstructive sleep apnea Herpes simplex type 1 antibody positive Lumbar pain Hip pain, right Microalbuminuria Diabetic nephropathy Restless leg syndrome Vitamin D deficiency Chronic GERD Depression, major, recurrent Hypertension, essential Lipid disorder Diabetes 1.5, managed as type 2 Surgical History History of esophagogastroduodenoscopy (EGD) Hx of colonoscopy H/O knee surgery No pertinent past surgical history Family History Father Stroke Diabetes mellitus Kidney disease Mother HTN (hypertension) Brother No problems noted. Sister No problems noted. Sister No problems noted. Sister No problems noted. Social History Housing: Apartment Alcohol intake: current Alcohol intake frequency: a few times a month Patient Tobacco Use Status: Former Tobacco user Cigarettes Per Day: 1 e-Cigarette/Vaping Use: Former Use (vape) Substance Use Type: Marijuana Current occupational status: employed Cognitive needs: No Hearing needs: No Vision needs: Yes Questionnaire Thrive Questionnaire Date Thrive assessed: 03/18/22 ELIZABETH-7 AMB Questionnaire ELIZABETH-7 Date ELIZABETH - 7 assessed: 03/18/22 Source: Developed by Drs. Bakari Escobedo, Shireen Riley, Luis Leo and colleagues, with an educational janay from [employer]. Review of Systems Const Denies chills and Denies fever(s) ENT Denies epistaxis and Denies nasal discharge Card Denies chest pain Resp Denies chest congestion, Denies cough and Denies hemoptysis GI Denies diarrhea and Denies nausea Skin/Breast Denies rash Neuro Reports no additional complaints Psych Reports no additional complaints Endo Reports no additional complaints Physical exam (Primary Care) Tobacco/Smoking Status: Tobacco use Status Tobacco use date assessed 07/07/23 07/07/23 14:32 Patient Tobacco Use Status Former Tobacco user 07/07/23 14:32 e-Cigarette/Vaping Use Former Use 07/07/23 14:32 Thrive Assessment: Date of Thrive Assessment Date Thrive assessed 03/18/22 07/07/23 14:32 Telehealth Telehealth [facility]health [facility] Location of provider rendering services: practice address Location of patient: address on file Patient Identification confirmed using: Name, : Yes Telehealth method: video (attempted) Patient verbally consented to treatment: Yes Patient verbally consented to billing insurance company: Yes Patient informed of any privacy concerns related to visit: Yes Minutes spent on Phone/Video with Pt.: 30 Assessment and Plan Assessment & Plan (1) Diabetes 1.5, managed as type 2: Code(s): E13.9 - Other specified diabetes mellitus without complications (2) Lipid disorder: Code(s): E78.9 - Disorder of lipoprotein metabolism, unspecified (3) Hypertension, essential: Code(s): I10 - Essential (primary) hypertension (4) Depression, major, recurrent: Code(s): F33.9 - Major depressive disorder, recurrent, unspecified Qualifiers: Active/Remission status: in partial remission Qualified Code(s): F33.41 - Major depressive disorder, recurrent, in partial remission (5) Chronic GERD: Code(s): K21.9 - Gastro-esophageal reflux disease without esophagitis (6) Diabetic nephropathy: Code(s): E11.21 - Type 2 diabetes mellitus with diabetic nephropathy Qualifiers: Diabetes mellitus type: type 2 Qualified Code(s): E11.21 - Type 2 diabetes mellitus with diabetic nephropathy (7) Microalbuminuria: Code(s): R80.9 - Proteinuria, unspecified (8) Screen for STD (sexually transmitted disease): Code(s): Z11.3 - Encounter for screening for infections with a predominantly sexual mode of transmission (9) Dysuria: Code(s): R30.0 - Dysuria Plan this is a telemed apt Patient has uncontrol diabetes trulicity injection was sent at his last visit patient has started taking that sugars have been improved He has chronic abdominal pain Right upper quadrant pt is seeing Gastro at [facility] he is requesting labs, which I have ordered for him he has just done stool studies thru gastro, results not available yet he also would like to have STD check having dysurea off and on, I have added UA as well Orders: Orders Comprehensive Met. Panel Today E11.21 - Type 2 diabetes mellitus with diabetic nephropathy, E13.9 - Other specified diabetes mellitus without complications, E78.9 - Disorder of lipoprotein metabolism, unspecified, I10 - Essential (primary) hypertension, K21.9 - Gastro-esophageal reflux disease without esophagitis, R10.11 - Right upper quadrant pain HIV Ab/Ag Today E11.21 - Type 2 diabetes mellitus with diabetic nephropathy, E13.9 - Other specified diabetes mellitus without complications, E78.9 - Disorder of lipoprotein metabolism, unspecified, I10 - Essential (primary) hypertension, K21.9 - Gastro-esophageal reflux disease without esophagitis, R10.11 - Right upper quadrant pain TSH reflex Free T4 Today E11.21 - Type 2 diabetes mellitus with diabetic nephropathy, E13.9 - Other specified diabetes mellitus without complications, E78.9 - Disorder of lipoprotein metabolism, unspecified, I10 - Essential (primary) hypertension, K21.9 - Gastro-esophageal reflux disease without esophagitis, R10.11 - Right upper quadrant pain UA CC w/rflx Micro + Cult Today E11.21 - Type 2 diabetes mellitus with diabetic nephropathy, E13.9 - Other specified diabetes mellitus without complications, E78.9 - Disorder of lipoprotein metabolism, unspecified, I10 - Essential (primary) hypertension, K21.9 - Gastro-esophageal reflux disease without esophagitis, R10.11 - Right upper quadrant pain Syphilis Screen Today E11.21 - Type 2 diabetes mellitus with diabetic nephropathy, E13.9 - Other specified diabetes mellitus without complications, E78.9 - Disorder of lipoprotein metabolism, unspecified, I10 - Essential (primary) hypertension, K21.9 - Gastro-esophageal reflux disease without esophagitis, R10.11 - Right upper quadrant pain Complete Blood Count Auto Diff Today E11.21 - Type 2 diabetes mellitus with diabetic nephropathy, E13.9 - Other specified diabetes mellitus without complications, E78.9 - Disorder of lipoprotein metabolism, unspecified, I10 - Essential (primary) hypertension, K21.9 - Gastro-esophageal reflux disease without esophagitis, R10.11 - Right upper quadrant pain Hepatitis C Antibody Today E11.21 - Type 2 diabetes mellitus with diabetic nephropathy, E13.9 - Other specified diabetes mellitus without complications, E78.9 - Disorder of lipoprotein metabolism, unspecified, I10 - Essential (primary) hypertension, K21.9 - Gastro-esophageal reflux disease without esophagitis, R10.11 - Right upper quadrant pain Herpes Simplex Virus Ab IgG Today E11.21 - Type 2 diabetes mellitus with diabetic nephropathy, E13.9 - Other specified diabetes mellitus without complications, E78.9 - Disorder of lipoprotein metabolism, unspecified, I10 - Essential (primary) hypertension, K21.9 - Gastro-esophageal reflux disease without esophagitis, R10.11 - Right upper quadrant pain Coding Level of Care Code Tele Est Pt Level 4 (03648) Diagnoses Diabetes 1.5, managed as type 2 E13.9 Lipid disorder E78.9 Hypertension, essential I10 Recurrent major depressive disorder, in partial remission F33.41 Active/Remission status: in partial remission Chronic GERD K21.9 Diabetic nephropathy associated with type 2 diabetes mellitus E11.21 Diabetes mellitus type: type 2 Microalbuminuria R80.9 Screen for STD (sexually transmitted disease) Z11.3 Dysuria R30.0
== END 2023-07-22 13:44 | disposition home or self-care (01) ==
LOC: HO.HMGC 08:44
PROVIDERS: PCP Internal Medicine; Visit Provider Internal Medicine
DX: E11.21 Type 2 diabetes mellitus with diabetic nephropathy (principal); F33.41 Major depressive disorder, recurrent, in partial remission; E78.9 Disorder of lipoprotein metabolism, unspecified; I10 Essential (primary) hypertension; K21.9 Gastro-esophageal reflux disease without esophagitis; R80.9 Proteinuria, unspecified; Z11.3 Encounter for screening for infections with a predominantly sexual mode of transmission; R30.0 Dysuria
CPT/HCPCS: 99214

== ENCOUNTER 2023-07-22 14:52 | Outpatient (REF) | payer OTHER, SELFPAY ==
[2023-07-22 15:13] LABS: MANUAL DIFF FLAG NO
[2023-07-22 15:31] LABS: Basophils Percent Auto 0.2 % (0-2); Eosinophils Absolute Auto 0.2 X10*3/uL (0.0-0.4); Eosinophils Percent Auto 1.4 % (0-4); Hematocrit 44.9 % (42.0-52.0); Hemoglobin 15.8 g/dl (14.0-18.0); Imm Gran Abs Auto 0.11 X10*3/uL (0.00-0.03); Imm Gran Pct Auto 0.7 % (0.0-0.4); Lymphocytes Absolute Auto 2.5 X10*3/uL (1.2-4.9); Lymphocytes Percent Auto 16.5 % (20-40); Mean Corpuscular HGB Conc 35.2 g/dl (31.0-36.0); Mean Corpuscular Hemoglobin 30.8 pg (27.0-33.0); Mean Corpuscular Volume 87.5 fL (80.0-98.0); Mean Platelet Volume 10.5 fL (9.4-12.4); Monocytes Absolute Auto 0.8 X10*3/uL (0.1-1.2); Monocytes Percent Auto 5.4 % (2-11); Neutrophils Absolute Auto 11.5 x10*3/uL (2.0-8.3); Neutrophils Percent Auto 75.8 % (45-73); Platelet Count 256 X10*3/uL (160-400); Red Blood Count 5.13 X10*6/uL (4.60-5.80); Red Cell Distribution Width 13.3 % (11.0-16.0); White Blood Count 15.2 X10*3/uL (4.8-10.8)
[2023-07-22 15:37] LABS: Appearance Urine Clear; Color Urine Yellow; Glucose Urine UA 100 mg/dL (Negative); Leukocyte Esterase Urine Negative (Negative); Nitrite Urine Negative (Negative); Specific Gravity - Urine 1.015 (1.005-1.025); Urine Blood Negative (Negative); Urine Ketones Negative (Negative); Urine Protein Negative (Neg-Trace)
[2023-07-22 16:13] LABS: Alanine Aminotransferase 26 U/L (0-40); Albumin Level 4.2 g/dL (3.5-5.0); Alkaline Phosphatase 98 U/L (39-117); Anion Gap 12 (12-20); Aspartate Amino Transferase 32 U/L (5-37); Bilirubin Total 0.7 mg/dL (0.0-1.0); Blood Urea Nitrogen 8 mg/dL (9-16); Calcium 9.1 mg/dL (8.4-10.2); Carbon Dioxide 28 mmol/L (22-29); Chloride 102 mmol/L (96-108); Estimated Glomerular Filt Rate > 60; Glucose Fasting 193 mg/dL (60-99); Glucose Random 192 mg/dL (60-115); Potassium 3.7 mmol/L (3.3-5.1); Sodium 138 mmol/L (135-145); Total Protein 7.5 g/dL (6.5-8.0)
[2023-07-22 16:16] LABS: Creatinine Urine 76.82 mg/dL; Microalbumin Urine < 5.0 mg/L
[2023-07-22 16:28] LABS: TSH reflex Free T4 1.22 uIU/mL (0.32-4.0)
[2023-07-23 04:26] LABS: Syphilis Screen Nonreactive (Nonreactive)
[2023-07-23 04:37] LABS: HIV AB/AG Nonreactive (Nonreactive); HIV Num 1 0.07 S/CO (0.00-0.99); ~HepC Num1 0.11 S/CO (0.00-0.79); ~Hepatitis C Antibody Nonreactive (Nonreactive)
[2023-07-23 12:08] LABS: Herpes Simplex Type 1 IgG 1.62 index; Herpes Simplex Type 2 IgG <0.90 index
== END 2023-07-22 14:53 | disposition home or self-care (01) ==
LOC: HO.LAB 14:52
PROVIDERS: PCP Internal Medicine; Visit Provider Internal Medicine
DX: E13.9 Other specified diabetes mellitus without complications (principal); E78.9 Disorder of lipoprotein metabolism, unspecified; I10 Essential (primary) hypertension; F33.9 Major depressive disorder, recurrent, unspecified; K21.9 Gastro-esophageal reflux disease without esophagitis; E11.21 Type 2 diabetes mellitus with diabetic nephropathy; R80.9 Proteinuria, unspecified; R10.11 Right upper quadrant pain
CPT/HCPCS: 36415; 80053; 81003; 82043; 82570; 84443; 85025; 86695; 86696; 86780; 86803; 87389

== ENCOUNTER 2023-07-30 13:12 | Outpatient (AMB) | payer OTHER, SELFPAY ==
--- NOTE | 2023-07-30 13:28 | A.OFFPC_ITS ---
Vital Signs 3 07/30/23 13:29 Height 5 ft 11 in Weight 257 lb BMI 35.8 BP 118/72 Blood Pressure Location Rt brachial Position Sitting Pulse 70 Pulse Source Pulse Oximeter Pulse Oximetry (%) 98 Oxygen Delivery Method Room Air Intake Visit Reasons: abd and chest wall disc Allergies No Known Allergies Allergy (Verified 07/30/23 13:29) Medication List - Last Reconciled 07/30/23 by Yadira Wilder MD amlodipine 10 mg PO DAILY 90 days bisacodyl (Dulcolax (bisacodyl)) 10 mg (2 x 5 mg) PO BEDTIME blood sugar diagnostic (FreeStyle Lite Strips) Use to check blood sugars three times daily and if symptomatic with hypo/hyperglycemia cholecalciferol (vitamin D3) 25 mcg PO DAILY 90 days citalopram 40 mg PO DAILY clotrimazole 10 mg mucous membrane TID 5 days docusate sodium 100 mg PO DAILY famotidine 40 mg PO DAILY gabapentin 1 cap qam 2 caps qhs orally; 90 days glipizide 10 mg PO BID 90 days insulin glargine U-300 conc 35 units in the morning and 25 units at night 30 days lancets (FreeStyle Lancets) Use to check blood sugars three times daily and if symptomatic with hypo/hyperglycemia methylcellulose (laxative) (Citrucel) 500 mg PO DAILY nystatin 1 appl topical DAILY 30 days pantoprazole 40 mg PO DAILY pen needle, diabetic (Easy Comfort Pen [place]) Once at night polyethylene glycol 3350 (Miralax) 17 grams PO DAILY Trulicity (dulaglutide) 0.75 mg (0.5 mL) subcut QWEEK 30 days NS Tobacco use date assessed: 07/07/23 Dental Screening Dental Screen Date: 07/07/23 HPI abd and chest wall disc 2 HPI0 Details Patient is a 48-year-old gentleman came in today to talk about his abdominal pain Patient sees Gastroenterology [facility] but does not have appointment coming up He has GERD as well as fatty liver He had CT scan done March of this year and ultrasound last year Both reports reviewed again We talked about management of fatty liver I would urge him to stop eating fast food And he needs to avoid greasy food altogether. Need to lose weight start exercising Epigastric discomfort after eating, he is already on famotidine and pantoprazole I have added Carafate as well Need avoid acidic foods especially tomato sauce, and should keep a food diary He is complaining of feeling dizzy at times which is a chronic problem and it happens when he bent down or stand up I am treating him with meclizine and vestibular physical therapy Diabetes: He is not taking Trulicity, 37 units of long-acting insulin 35 units at night and 25 units in the morning Fasting sugar is still running in 200s, I have told him to increase his night insulin by 2 units until his fasting sugar is 150 or below [facility] Medical History Paresthesias Depression Anxiety Neck pain Hypersomnia Snoring Obstructive sleep apnea Herpes simplex type 1 antibody positive Lumbar pain Hip pain, right Microalbuminuria Diabetic nephropathy Restless leg syndrome Vitamin D deficiency Chronic GERD Depression, major, recurrent Hypertension, essential Lipid disorder Diabetes 1.5, managed as type 2 Surgical History History of esophagogastroduodenoscopy (EGD) Hx of colonoscopy H/O knee surgery No pertinent past surgical history Family History Father Stroke Diabetes mellitus Kidney disease Mother HTN (hypertension) Brother No problems noted. Sister No problems noted. Sister No problems noted. Sister No problems noted. Social History Housing: Apartment Alcohol intake: current Alcohol intake frequency: a few times a month Patient Tobacco Use Status: Former Tobacco user Cigarettes Per Day: 1 e-Cigarette/Vaping Use: Former Use (vape) Substance Use Type: Marijuana Current occupational status: employed Cognitive needs: No Hearing needs: No Vision needs: Yes Questionnaire Thrive Questionnaire Date Thrive assessed: 03/18/22 ELIZABETH-7 AMB Questionnaire ELIZABETH-7 Date ELIZABETH - 7 assessed: 03/18/22 Source: Developed by Drs. Bakari Escobedo, Shireen Riley, Luis Leo and colleagues, with an educational janay from [employer]. Review of Systems Const Denies chills and Denies fever(s) ENT Denies epistaxis and Denies nasal discharge Card Denies chest pain Resp Denies chest congestion, Denies cough and Denies hemoptysis GI Denies diarrhea Skin/Breast Denies rash Neuro Reports no additional complaints Psych Reports no additional complaints Endo Reports no additional complaints Physical exam (Primary Care) Vital Signs: Last Vital Signs Pulse 70 07/30/23 13:29 BP 118/72 07/30/23 13:29 Pulse Ox 98 07/30/23 13:29 Oxygen Delivery Method Room Air 07/30/23 13:29 BMI result Body Mass Index 35.8 Tobacco/Smoking Status: Tobacco use Status Tobacco use date assessed 07/07/23 07/30/23 13:32 Patient Tobacco Use Status Former Tobacco user 07/30/23 13:32 e-Cigarette/Vaping Use Former Use (vape) 07/30/23 13:32 Thrive Assessment: Date of Thrive Assessment Date Thrive assessed 03/18/22 07/30/23 13:32 Const General: cooperative, comfortable and no acute distress Orientation/consciousness: patient oriented x3 HENMT Head: Yes normocephalic Eyes General: appearance normal, both eyes and all related structures Neck Neck: Yes supple Resp Effort & Inspection: normal respiratory effort, no cough and no stridor Cardio Rhythm: regular rhythm Heart sounds: S1 normal heart sound present and S2 normal heart sound present GI Abdomen image: 2 1. Discomfort off and on, no pain with palpation today 2. Discomfort after eating Skin General skin exam: turgor normal Neuro General: patient oriented x3, tone normal and moves all extremities Extrem Right lower extremity: no edema Left lower extremity: no edema Assessment and Plan Assessment & Plan (1) Right upper quadrant pain: Code(s): R10.11 - Right upper quadrant pain (2) Uncontrolled diabetes mellitus: Code(s): E11.65 - Type 2 diabetes mellitus with hyperglycemia Qualifiers: Diabetes mellitus type: type 2 Glycemic state: with hyperglycemia Q ualified Code(s): E11.65 - Type 2 diabetes mellitus with hyperglycemia (3) Epigastric discomfort: Code(s): R10.13 - Epigastric pain (4) Benign positional vertigo: Code(s): H81.10 - Benign paroxysmal vertigo, unspecified ear Qualifiers: Laterality: bilateral Qualified Code(s): H81.13 - Benign paroxysmal vertigo, bilateral (5) Abdominal bloating: Code(s): R14.0 - Abdominal distension (gaseous) (6) Fatty liver: Code(s): K76.0 - Fatty (change of) liver, not elsewhere classified Plan Patient is a 48-year-old gentleman came in today to talk about his abdominal pain Patient sees Gastroenterology [facility] but does not have appointment coming up He has GERD as well as fatty liver He had CT scan done March of this year and ultrasound last year Both reports reviewed again We talked about management of fatty liver I would urge him to stop eating fast food And he needs to avoid greasy food altogether. Need to lose weight start exercising Epigastric discomfort after eating, he is already on famotidine and pantoprazole I have added Carafate as well Need avoid acidic foods especially tomato sauce, and should keep a food diary He is complaining of feeling dizzy at times which is a chronic problem and it happens when he bent down or stand up I am treating him with meclizine and vestibular physical therapy Diabetes: He is not taking Trulicity, 37 units of long-acting insulin 35 units at night and 25 units in the morning Fasting sugar is still running in 200s, I have told him to increase his night insulin by 2 units until his fasting sugar is 150 or below Orders: Orders 2 PT Evaluation and Treatment Today H81.10 - Benign paroxysmal vertigo, unspecified ear Medications: New 2 meclizine 25 mg PO BID PRN 30 tabs 0RF dizziness sucralfate (Carafate) 10 mL PO BID PRN 600 mL 0RF Upper abdominal pain 30 days Coding Level of Care Code Est Pt Level 4 (95022) Complex EM visit Add On G2211 Diagnoses Right upper quadrant pain R10.11 Uncontrolled type 2 diabetes mellitus with hyperglycemia E11.65 Diabetes mellitus type: type 2 Glycemic state: with hyperglycemia Epigastric discomfort R10.13 Benign paroxysmal positional vertigo due to bilateral vestibular disorder H81.13 Laterality: bilateral Abdominal bloating R14.0 Fatty liver K76.0
[2023-07-30 13:29] VITALS: BP 118/72; PULSE 70; O2SAT 98; BMI 35.8
== END 2023-07-30 14:59 | disposition home or self-care (01) ==
PROVIDERS: PCP Internal Medicine; Visit Provider Internal Medicine
DX: R10.11 Right upper quadrant pain (principal); E11.65 Type 2 diabetes mellitus with hyperglycemia; R10.13 Epigastric pain; H81.13 Benign paroxysmal vertigo, bilateral; R14.0 Abdominal distension (gaseous); K76.0 Fatty (change of) liver, not elsewhere classified
CPT/HCPCS: 99214; G2211

== ENCOUNTER 2023-08-24 08:32 | Outpatient (AMB) | payer OTHER, SELFPAY ==
--- NOTE | 2023-08-24 08:53 | MHC.OFFWIV ---
Intake Vital Signs 08/24/23 08:54 Height 5 ft 11 in Weight 246 lb 4 oz BMI 34.3 BP 126/80 Blood Pressure Location Rt brachial Position Sitting Pulse 65 Pulse Source Pulse Oximeter Temp 97.8 F Temp Source Temporal Artery Scan Pulse Oximetry (%) 98 Intake Visit Reasons: EP stomach pain vomiting Patient Tobacco Use Status: Former Tobacco user Allergies No Known Allergies Allergy (Verified 08/24/23 08:55) Medication List - Last Reconciled 08/24/23 by Yadira Wilder MD amlodipine 10 mg PO DAILY 90 days bisacodyl (Dulcolax (bisacodyl)) 10 mg (2 x 5 mg) PO BEDTIME blood sugar diagnostic (FreeStyle Lite Strips) Use to check blood sugars three times daily and if symptomatic with hypo/hyperglycemia cholecalciferol (vitamin D3) 25 mcg PO DAILY 90 days citalopram 40 mg PO DAILY clotrimazole 10 mg mucous membrane TID 5 days docusate sodium 100 mg PO DAILY famotidine 40 mg PO DAILY gabapentin 1 cap qam 2 caps qhs orally; 90 days glipizide 10 mg PO BID 90 days insulin glargine U-300 conc 35 units in the morning and 25 units at night 30 days lancets (FreeStyle Lancets) Use to check blood sugars three times daily and if symptomatic with hypo/hyperglycemia meclizine 25 mg PO BID PRN methylcellulose (laxative) (Citrucel) 500 mg PO DAILY nystatin 1 appl topical DAILY 30 days pantoprazole 40 mg PO DAILY pen needle, diabetic (Easy Comfort Pen [place]) Once at night polyethylene glycol 3350 (Miralax) 17 grams PO DAILY sucralfate (Carafate) 10 mL PO BID PRN 30 days Trulicity (dulaglutide) 0.75 mg (0.5 mL) subcut QWEEK 30 days NS Do you need a note to return to daycare/school/sports/work: No HPI EP stomach pain vomiting HPI Details Patient is a 48-year-old gentleman came in today to be evaluated for stomach pain and vomiting Patient says that he ate bad shrimps before it happened, he ate shrimp on Wednesday his symptoms started that was last week, he ended up in [facility], he was evaluated and discharged with all testing negative He was given Zofran which did not help The patient went back to [facility] on Wednesday, once again he was evaluated and discharged again with all testing negative He continued to have cramping in his epigastric area and vomiting Patient is diabetic as well. I am treating her with Reglan 3 times a day as needed 10 mg just for 3 days Patient is requesting a muscle relaxer because of neck pain he has encountered because of vomiting Cyclobenzaprine sent 5 mg to be taken b.i.d. for 3 days Patient need to come back on Wednesday , that is in 2 days for re-evaluation. Meanwhile he was instructed to only consume clear liquids when feeling better. [facility] Medical History Paresthesias Depression Anxiety Neck pain Hypersomnia Snoring Obstructive sleep apnea Herpes simplex type 1 antibody positive Lumbar pain Hip pain, right Microalbuminuria Diabetic nephropathy Restless leg syndrome Vitamin D deficiency Chronic GERD Depression, major, recurrent Hypertension, essential Lipid disorder Diabetes 1.5, managed as type 2 Surgical History History of esophagogastroduodenoscopy (EGD) Hx of colonoscopy H/O knee surgery No pertinent past surgical history Family History Father Stroke Diabetes mellitus Kidney disease Mother HTN (hypertension) Brother No problems noted. Sister No problems noted. Sister No problems noted. Sister No problems noted. Social History Housing: Apartment Alcohol intake: current Alcohol intake frequency: a few times a month Patient Tobacco Use Status: Former Tobacco user Cigarettes Per Day: 1 e-Cigarette/Vaping Use: Former Use Substance Use Type: Marijuana Current occupational status: employed Cognitive needs: No Hearing needs: No Vision needs: Yes Review of Systems Const Denies chills and Denies fever(s) ENT Denies epistaxis and Denies nasal discharge Card Denies chest pain Resp Denies chest congestion, Denies cough and Denies hemoptysis GI Denies diarrhea Skin/Breast Denies rash Neuro Reports no additional complaints Psych Reports no additional complaints Endo Reports no additional complaints Physical Exam Vital Signs: Last Vital Signs Temp 97.8 F 08/24/23 08:54 Pulse 65 08/24/23 08:54 BP 126/80 08/24/23 08:54 Pulse Ox 98 08/24/23 08:54 BMI result Body Mass Index 34.3 Const General: cooperative and no acute distress Orientation/consciousness: patient oriented x3 HEENT Head: Yes normocephalic Eyes General: appearance normal, both eyes and all related structures Neck Other: Supple Neck: Yes supple Resp Effort & Inspection: normal respiratory effort, no cough and no stridor Cardio Rhythm: regular rhythm Heart sounds: S1 normal heart sound present and S2 normal heart sound present GI Other: Epigastric discomfort with pressure, patient is feeling nauseous Skin General skin exam: turgor normal Neuro Other: Motor sensory intact General: patient oriented x3, tone normal and moves all extremities Extrem Other: No lower extremity swelling. Right lower extremity: no edema Left lower extremity: no edema Psych Other: Normal effect, speech clear Assessment & Plan Assessment & Plan (1) Epigastric pain: Code(s): R10.13 - Epigastric pain (2) Nausea & vomiting: Code(s): R11.2 - Nausea with vomiting, unspecified Qualifiers: Vomiting type: unspecified Qualified Code(s): R11.2 - Nausea with vomiting, unspecified (3) Cervical paraspinal muscle spasm: Code(s): M62.838 - Other muscle spasm (4) Diabetes 1.5, managed as type 2: Code(s): E13.9 - Other specified diabetes mellitus without complications Plan Patient is a 48-year-old gentleman came in today to be evaluated for stomach pain and vomiting Patient says that he ate bad shrimps before it happened, he ate shrimp on Wednesday his symptoms started that was last week, he ended up in [facility], he was evaluated and discharged with all testing negative He was given Zofran which did not help The patient went back to [facility] on Wednesday, once again he was evaluated and discharged again with all testing negative He continued to have cramping in his epigastric area and vomiting Patient is diabetic as well. I am treating her with Reglan 3 times a day as needed 10 mg just for 3 days Patient is requesting a muscle relaxer because of neck pain he has encountered because of vomiting Cyclobenzaprine sent 5 mg to be taken b.i.d. for 3 days Patient need to come back on Wednesday , that is in 2 days for re-evaluation. Meanwhile he was instructed to only consume clear liquids when feeling better. Medications: New metoclopramide HCl (Reglan) 10 mg PO TID PRN 7 tabs 0RF nausea and vomiting 4 days cyclobenzaprine 5 mg PO BID PRN 6 tabs 0RF muscle spasm 3 days M54.9 - Dorsalgia, unspecified Coding Level of Care Code Est Pt Level 4 (82291) Diagnoses Epigastric pain R10.13 Nausea and vomiting, unspecified vomiting type R11.2 Vomiting type: unspecified Cervical paraspinal muscle spasm M62.838 Diabetes 1.5, managed as type 2 E13.9
[2023-08-24 08:54] VITALS: BP 126/80; PULSE 65; TEMP 36.6; O2SAT 98; BMI 34.3
== END 2023-08-24 09:25 | disposition home or self-care (01) ==
PROVIDERS: PCP Internal Medicine; Visit Provider Internal Medicine
DX: R10.13 Epigastric pain (principal); R11.2 Nausea with vomiting, unspecified; M62.838 Other muscle spasm; E13.9 Other specified diabetes mellitus without complications
CPT/HCPCS: 99214

== ENCOUNTER 2023-08-27 13:21 | Outpatient (AMB) | payer OTHER, SELFPAY ==
--- NOTE | 2023-08-27 13:24 | MHC.PC.OV ---
Vital Signs 08/27/23 13:27 Height 5 ft 11 in Weight 243 lb BMI 33.9 BP 130/80 Blood Pressure Location Lt brachial Position Sitting Pulse 74 Pulse Source Pulse Oximeter Pulse Oximetry (%) 98 Oxygen Delivery Method Room Air Intake Visit Reasons: F/u Vomiting~ Allergies No Known Allergies Allergy (Verified 08/27/23 13:28) Medication List - Last Reconciled 08/27/23 by Yadira Wilder MD amlodipine 10 mg PO DAILY 90 days bisacodyl (Dulcolax (bisacodyl)) 10 mg (2 x 5 mg) PO BEDTIME blood sugar diagnostic (FreeStyle Lite Strips) Use to check blood sugars three times daily and if symptomatic with hypo/hyperglycemia cholecalciferol (vitamin D3) 25 mcg PO DAILY 90 days citalopram 40 mg PO DAILY clotrimazole 10 mg mucous membrane TID 5 days cyclobenzaprine 5 mg PO BID PRN 3 days docusate sodium 100 mg PO DAILY famotidine 40 mg PO DAILY gabapentin 1 cap qam 2 caps qhs orally; 90 days glipizide 10 mg PO BID 90 days insulin glargine U-300 conc 35 units in the morning and 25 units at night 30 days lancets (FreeStyle Lancets) Use to check blood sugars three times daily and if symptomatic with hypo/hyperglycemia meclizine 25 mg PO BID PRN methylcellulose (laxative) (Citrucel) 500 mg PO DAILY metoclopramide HCl (Reglan) 10 mg PO TID PRN 4 days nystatin 1 appl topical DAILY 30 days pantoprazole 40 mg PO DAILY pen needle, diabetic (Easy Comfort Pen [place]) Once at night polyethylene glycol 3350 (Miralax) 17 grams PO DAILY sucralfate (Carafate) 10 mL PO BID PRN 30 days Trulicity (dulaglutide) 0.75 mg (0.5 mL) subcut QWEEK 30 days NS Tobacco use date assessed: 07/07/23 Dental Screening Dental Screen Date: 07/07/23 HPI F/u Vomiting~ HPI Details Patient is feeling little better, has started keeping liquids down But still having vomiting 2 or 3 times a day He has also started having some loose stools as well Patient is to continue with metoclopramide and Zofran Continue bland diet and push more clear liquids. We will follow-up again in 1 week. [facility] Medical History Paresthesias Depression Anxiety Neck pain Hypersomnia Snoring Obstructive sleep apnea Herpes simplex type 1 antibody positive Lumbar pain Hip pain, right Microalbuminuria Diabetic nephropathy Restless leg syndrome Vitamin D deficiency Chronic GERD Depression, major, recurrent Hypertension, essential Lipid disorder Diabetes 1.5, managed as type 2 Surgical History History of esophagogastroduodenoscopy (EGD) Hx of colonoscopy H/O knee surgery No pertinent past surgical history Family History Father Stroke Diabetes mellitus Kidney disease Mother HTN (hypertension) Brother No problems noted. Sister No problems noted. Sister No problems noted. Sister No problems noted. Social History Housing: Apartment Alcohol intake: current Alcohol intake frequency: a few times a month Patient Tobacco Use Status: Former Tobacco user Cigarettes Per Day: 1 e-Cigarette/Vaping Use: Former Use Substance Use Type: Marijuana Current occupational status: employed Cognitive needs: No Hearing needs: No Vision needs: Yes Questionnaire Thrive Questionnaire Date Thrive assessed: 03/18/22 ELIZABETH-7 AMB Questionnaire ELIZABETH-7 Date ELIZABETH - 7 assessed: 03/18/22 Source: Developed by Drs. Bakari Escobedo, Shireen Riley, Luis Leo and colleagues, with an educational janay from [employer]. Review of Systems Const Denies chills and Denies fever(s) ENT Denies epistaxis and Denies nasal discharge Card Denies chest pain Resp Denies chest congestion, Denies cough and Denies hemoptysis Skin/Breast Denies rash Neuro Reports no additional complaints Psych Reports no additional complaints Endo Reports no additional complaints Physical exam (Primary Care) Vital Signs: Last Vital Signs Pulse 74 08/27/23 13:27 BP 130/80 08/27/23 13:27 Pulse Ox 98 08/27/23 13:27 Oxygen Delivery Method Room Air 08/27/23 13:27 BMI result Body Mass Index 33.9 Tobacco/Smoking Status: Tobacco use Status Tobacco use date assessed 07/07/23 08/27/23 13:25 Patient Tobacco Use Status Former Tobacco user 08/27/23 13:25 e-Cigarette/Vaping Use Former Use 08/27/23 13:25 Thrive Assessment: Date of Thrive Assessment Date Thrive assessed 03/18/22 08/27/23 13:25 Const General: cooperative, comfortable and no acute distress Orientation/consciousness: patient oriented x3 HENMT Head: Yes normocephalic Eyes General: appearance normal, both eyes and all related structures Neck Neck: Yes supple Resp Effort & Inspection: normal respiratory effort, no cough and no stridor Cardio Rhythm: regular rhythm Heart sounds: S1 normal heart sound present and S2 normal heart sound present GI Other: Generalized discomfort all over, bowel sounds positive Skin General skin exam: turgor normal Neuro General: patient oriented x3, tone normal and moves all extremities Extrem Right lower extremity: no edema Left lower extremity: no edema Assessment and Plan Assessment & Plan (1) Nausea vomiting and diarrhea: Code(s): R11.2 - Nausea with vomiting, unspecified; R19.7 - Diarrhea, unspecified Plan Patient is feeling little better, has started keeping liquids down But still having vomiting 2 or 3 times a day He has also started having some loose stools as well Patient is to continue with metoclopramide and Zofran Continue bland diet and push more clear liquids. We will follow-up again in 1 week. Medications: New ondansetron HCl 8 mg PO Q12H 10 days 20 tabs 0RF Nausea vomiting Changed From metoclopramide HCl (Reglan) 10 mg PO TID 4 days PRN 7 tabs 0RF nausea and vomiting To metoclopramide HCl (Reglan) 10 mg PO TID 10 days 30 tabs 0RF nausea and vomiting From cyclobenzaprine 5 mg PO BID 3 days PRN 6 tabs 0RF muscle spasm M54.9 - Dorsalgia, unspecified To cyclobenzaprine 5 mg PO BID 10 days PRN 20 tabs 0RF muscle spasm M54.9 - Dorsalgia, unspecified From insulin glargine U-300 conc 35 units in the morning and 25 units at night 30 days 6 mL 2RF E11.65 - Type 2 diabetes mellitus with hyperglycemia To insulin glargine U-300 conc subcutaneously 2 times a day; 35 units in the morning and 40 units at night 90 days 45 mL 2RF E11.65 - Type 2 diabetes mellitus with hyperglycemia Refilled amlodipine 10 mg PO DAILY 90 days 90 tabs 0RF citalopram 40 mg PO DAILY 90 tabs 0RF Trulicity (dulaglutide) 0.75 mg (0.5 mL) subcut QWEEK 30 days 2 mL 0RF NS Coding Level of Care Code Est Pt Level 3 (23117) Diagnoses Nausea vomiting and diarrhea R11.2; R19.7
[2023-08-27 13:27] VITALS: BP 130/80; PULSE 74; O2SAT 98; BMI 33.9
== END 2023-08-27 13:45 | disposition home or self-care (01) ==
PROVIDERS: PCP Internal Medicine; Visit Provider Internal Medicine
DX: R11.2 Nausea with vomiting, unspecified (principal); R19.7 Diarrhea, unspecified
CPT/HCPCS: 99213

== ENCOUNTER 2023-08-31 13:14 | Outpatient (AMB) | payer OTHER, SELFPAY ==
--- NOTE | 2023-08-31 13:46 | MHC.PC.OV ---
Vital Signs 08/31/23 13:47 Height 5 ft 11 in Weight 252 lb BMI 35.1 BP 108/70 Blood Pressure Location Lt brachial Position Sitting Pulse 79 Pulse Source Pulse Oximeter Pulse Oximetry (%) 98 Oxygen Delivery Method Room Air Intake Visit Reasons: F/u strep throat Allergies No Known Allergies Allergy (Verified 08/31/23 13:46) Medication List - Last Reconciled 08/31/23 by Yadira Wilder MD amlodipine 10 mg PO DAILY 90 days bisacodyl (Dulcolax (bisacodyl)) 10 mg (2 x 5 mg) PO BEDTIME blood sugar diagnostic (FreeStyle Lite Strips) Use to check blood sugars three times daily and if symptomatic with hypo/hyperglycemia cholecalciferol (vitamin D3) 25 mcg PO DAILY 90 days citalopram 40 mg PO DAILY clotrimazole 10 mg mucous membrane TID 5 days cyclobenzaprine 5 mg PO BID PRN 10 days docusate sodium 100 mg PO DAILY famotidine 40 mg PO DAILY gabapentin 1 cap qam 2 caps qhs orally; 90 days glipizide 10 mg PO BID 90 days insulin glargine U-300 conc subcutaneously 2 times a day; 35 units in the morning and 40 units at night 90 days lancets (FreeStyle Lancets) Use to check blood sugars three times daily and if symptomatic with hypo/hyperglycemia meclizine 25 mg PO BID PRN methylcellulose (laxative) (Citrucel) 500 mg PO DAILY metoclopramide HCl (Reglan) 10 mg PO TID 10 days nystatin 1 appl topical DAILY 30 days ondansetron HCl 8 mg PO Q12H 10 days pantoprazole 40 mg PO DAILY pen needle, diabetic (Easy Comfort Pen [place]) Once at night polyethylene glycol 3350 (Miralax) 17 grams PO DAILY sucralfate (Carafate) 10 mL PO BID PRN 30 days Trulicity (dulaglutide) 0.75 mg (0.5 mL) subcut QWEEK 30 days NS Tobacco use date assessed: 08/31/23 Dental Screening Dental Screen Date: 07/07/23 HPI F/u strep throat HPI Details Patient is a 48-year-old gentleman came in today to be evaluated for possible strep infection Says that he went to [facility] and was told he has strep test He went because his tongue felt wall Patient has been dealing with nausea vomiting diarrhea for the past few days He is symptoms as far as nausea vomiting and diarrhea is concerned is getting better We did a strep test today in office and it is negative For his tongue symptoms I would recommend to just rinse with salt and water for now. I did not see any thrush in his mouth. Reviewing his papers from [facility] I see that no strep was found It was just in information with the patient that went there is a strep infection that antibiotic is prescribed But because his symptoms were viral so no antibiotic was given. Explained the papers to patient. [facility] Medical History Paresthesias Depression Anxiety Neck pain Hypersomnia Snoring Obstructive sleep apnea Herpes simplex type 1 antibody positive Lumbar pain Hip pain, right Microalbuminuria Diabetic nephropathy Restless leg syndrome Vitamin D deficiency Chronic GERD Depression, major, recurrent Hypertension, essential Lipid disorder Diabetes 1.5, managed as type 2 Surgical History History of esophagogastroduodenoscopy (EGD) Hx of colonoscopy H/O knee surgery No pertinent past surgical history Family History Father Stroke Diabetes mellitus Kidney disease Mother HTN (hypertension) Brother No problems noted. Sister No problems noted. Sister No problems noted. Sister No problems noted. Social History Housing: Apartment Alcohol intake: current Alcohol intake frequency: a few times a month Patient Tobacco Use Status: Former Tobacco user Cigarettes Per Day: 1 e-Cigarette/Vaping Use: Former Use Substance Use Type: Marijuana Current occupational status: employed Cognitive needs: No Hearing needs: No Vision needs: Yes Questionnaire Thrive Questionnaire Date Thrive assessed: 03/18/22 ELIZABETH-7 AMB Questionnaire ELIZABETH-7 Date ELIZABETH - 7 assessed: 03/18/22 Source: Developed by Drs. Bakari sEcobedo, Shireen Riley, Luis Leo and colleagues, with an educational janay from [employer]. Review of Systems Const Denies chills and Denies fever(s) ENT Denies epistaxis and Denies nasal discharge Card Denies chest pain Resp Denies chest congestion, Denies cough and Denies hemoptysis Skin/Breast Denies rash Neuro Reports no additional complaints Psych Reports no additional complaints Endo Reports no additional complaints Physical exam (Primary Care) Vital Signs: Last Vital Signs Pulse 79 08/31/23 13:47 BP 108/70 08/31/23 13:47 Pulse Ox 98 08/31/23 13:47 Oxygen Delivery Method Room Air 08/31/23 13:47 BMI result Body Mass Index 35.1 Tobacco/Smoking Status: Tobacco use Status Tobacco use date assessed 08/31/23 08/31/23 13:52 Patient Tobacco Use Status Former Tobacco user 08/31/23 13:52 e-Cigarette/Vaping Use Former Use 08/31/23 13:52 Thrive Assessment: Date of Thrive Assessment Date Thrive assessed 03/18/22 08/31/23 13:52 Const General: cooperative, comfortable and no acute distress Orientation/consciousness: patient oriented x3 HENMT Other: Tongue lesions seen Head: Yes normocephalic Eyes General: appearance normal, both eyes and all related structures Neck Neck: Yes supple Resp Effort & Inspection: normal respiratory effort, no cough and no stridor Cardio Rhythm: regular rhythm Heart sounds: S1 normal heart sound present and S2 normal heart sound present Skin General skin exam: turgor normal Neuro General: patient oriented x3, tone normal and moves all extremities Extrem Right lower extremity: no edema Left lower extremity: no edema Results AMB Rapid Strep AMB Rapid Strep Negative Last Edit by Mike You CMA on 08/31/23 14:02 Assessment and Plan Assessment & Plan (1) Tongue disorder: Code(s): K14.9 - Disease of tongue, unspecified (2) Nausea vomiting and diarrhea: Code(s): R11.2 - Nausea with vomiting, unspecified; R19.7 - Diarrhea, unspecified Plan Patient is a 48-year-old gentleman came in today to be evaluated for possible strep infection Says that he went to [facility] and was told he has strep test He went because his tongue felt wall Patient has been dealing with nausea vomiting diarrhea for the past few days He is symptoms as far as nausea vomiting and diarrhea is concerned is getting better We did a strep test today in office and it is negative For his tongue symptoms I would recommend to just rinse with salt and water for now. I did not see any thrush in his mouth. Reviewing his papers from [facility] I see that no strep was found It was just in information with the patient that went there is a strep infection that antibiotic is prescribed But because his symptoms were viral so no antibiotic was given. Explained the papers to patient. Orders: Orders AMB Rapid Strep Screen Today Z13.9 - Encounter for screening, unspecified Coding Level of Care Code Est Pt Level 3 (05569) Diagnoses Tongue disorder K14.9 Nausea vomiting and diarrhea R11.2; R19.7
[2023-08-31 13:47] VITALS: BP 108/70; PULSE 79; O2SAT 98; BMI 35.1
== END 2023-08-31 14:40 | disposition home or self-care (01) ==
LOC: HO.HMGC 13:15
PROVIDERS: PCP Internal Medicine; Visit Provider Internal Medicine
DX: R11.2 Nausea with vomiting, unspecified (principal); R19.7 Diarrhea, unspecified; K13.79 Other lesions of oral mucosa
CPT/HCPCS: 87880; 99213

== ENCOUNTER 2023-10-06 13:42 | Outpatient (AMB) | payer OTHER, SELFPAY ==
[2023-10-06 13:46] VITALS: BP 124/78; PULSE 83; O2SAT 96; BMI 36.5
--- NOTE | 2023-10-06 13:46 | A.OFFPC_ITS ---
Vital Signs 10/06/23 13:46 Height 5 ft 11 in Weight 261 lb 6 oz BMI 36.5 BP 124/78 Blood Pressure Location Rt brachial Position Sitting Pulse 83 Pulse Source Pulse Oximeter Pulse Oximetry (%) 96 Oxygen Delivery Method Room Air Intake Visit Reasons: Annual PE Allergies No Known Allergies Allergy (Verified 10/06/23 13:50) Medication List - Last Reconciled 10/06/23 by Yadira Wilder MD amlodipine 10 mg PO DAILY 90 days bisacodyl (Dulcolax (bisacodyl)) 10 mg (2 x 5 mg) PO BEDTIME blood sugar diagnostic (FreeStyle Lite Strips) Use to check blood sugars three times daily and if symptomatic with hypo/hyperglycemia cholecalciferol (vitamin D3) 25 mcg PO DAILY 90 days citalopram 40 mg PO DAILY docusate sodium 100 mg PO DAILY dulaglutide 3 mg (0.5 mL) subcut QWEEK 30 days famotidine 40 mg PO DAILY gabapentin 1 cap qam 2 caps qhs orally; 90 days glipizide 10 mg PO BID 90 days insulin glargine U-300 conc subcutaneously 2 times a day; 35 units in the morning and 40 units at night 90 days lancets (FreeStyle Lancets) Use to check blood sugars three times daily and if symptomatic with hypo/hyperglycemia meclizine 25 mg PO BID PRN methylcellulose (laxative) (Citrucel) 500 mg PO DAILY metoclopramide HCl (Reglan) 10 mg PO TID 10 days nystatin 1 appl topical DAILY 30 days ondansetron HCl 8 mg PO Q12H 10 days pantoprazole 40 mg PO DAILY pen needle, diabetic (Easy Comfort Pen [place]) Once at night polyethylene glycol 3350 (Miralax) 17 grams PO DAILY sucralfate (Carafate) 10 mL PO BID PRN 30 days Tobacco use date assessed: 10/06/23 Dental Screening Dental Screen Date: 10/06/23 Did you have a dental visit in the last 12 months?: Yes Did you have a dental problem in the last 6 months where you did not have access to dental care?: No Was dental information given to patient?: Patient has dentist HPI Annual PE HPI Details Patient is a 48-year-old gentleman came today physical examination Sugars continued to be high He is on long acting insulin 35 units at night and 40 units in the morning And Trulicity I am increasing the dose of Trulicity to 3 mg once a week Due for colonoscopy order placed Follow-up 4 months physical exam 1 year BMI is elevated patient is having difficulty losing weight Vital signs are still Medication list reviewed Nystatin and meclizine refill sent [facility] Medical History Paresthesias Depression Anxiety Neck pain Hypersomnia Snoring Obstructive sleep apnea Herpes simplex type 1 antibody positive Lumbar pain Hip pain, right Microalbuminuria Diabetic nephropathy Restless leg syndrome Vitamin D deficiency Chronic GERD Depression, major, recurrent Hypertension, essential Lipid disorder Diabetes 1.5, managed as type 2 Surgical History History of esophagogastroduodenoscopy (EGD) Hx of colonoscopy H/O knee surgery No pertinent past surgical history Family History Father Stroke Diabetes mellitus Kidney disease Mother HTN (hypertension) Brother No problems noted. Sister No problems noted. Sister No problems noted. Sister No problems noted. Social History Housing: Apartment Alcohol intake: current Alcohol intake frequency: a few times a month Patient Tobacco Use Status: Former Tobacco user Cigarettes Per Day: 1 e-Cigarette/Vaping Use: Former Use Substance Use Type: Marijuana Current occupational status: employed Cognitive needs: No Hearing needs: No Vision needs: Yes Questionnaire PHQ-9 Over the last 2 weeks, how often have you been bothered by any of the following problems? 1. Little interest or pleasure in doing things: several days 2. Feeling down, depressed, or hopeless: several days 3. Trouble falling or staying asleep, or sleeping too much: nearly every day 4. Feeling tired or having little energy: nearly every day 5. Poor appetite or overeating: not at all 6. Feeling bad about yourself - or that you are a failure or have let yourself or your family down: not at all 7. Trouble concentrating on things, such as reading the newspaper or watching television: not at all 8. Moving or speaking so slowly that other people could have noticed. Or the opposite - being so fidgety or restless that you have been moving around a lot more than usual: not at all 9. Thoughts that you would be better off or of hurting yourself in some way: not at all Total score: 8 Depression Screening Interpretation: Negative Depression Screening Done: Yes 25548 - PHQ-9 Billing: Yes Source: Developed by Drs. Bakari Escobedo, Shireen Riley, Luis Leo and colleagues, with an educational janay from [employer]. Thrive Questionnaire Date Thrive assessed: 10/06/23 I am a: Patient What is your living situation today?: I have a steady place to live Within the past 12 months, did the food you bought not last and you didn't have the money to get more?: Sometimes True Within the past 12 months, did you worry whether your food would run out before you got money to buy more?: Never true Do you have trouble paying for medicines?: No Do you have trouble getting transportation to medical appointments?: No Do you have trouble paying your heating and electricity bill?: No Do you have trouble taking care of your child, family member or friend?: No Do you have trouble with day-to-day activities such as bathing, preparing meals, shopping, managing finances, etc.?: No Are you currently unemployed and looking for a job?: Yes Are you interested in more education?: No Please select the resources that you would like help with: Housing/Prison and Food Currently or been in a relationship where the following occur: No concerns reported THRIVE Score: 1 AUDIT C Alcohol Use Questionnaire (AUDIT-C) 1. How often do you have a drink containing alcohol?: 2-3 times a week 2. How many drinks containing alcohol do you have on a typical day when you are drinking?: 1 or 2 3. How often do you have six or more drinks on one occasion?: Never Total Score: 3 Score Reviewed/Action Taken: Yes ELIZABETH-7 AMB Questionnaire ELIZABETH-7 Date ELIZABETH - 7 assessed: 10/06/23 Feeling nervous, anxious, or on edge: 1 = Several days Not being able to stop or control worryin = Not at all Worrying too much about different things: 2 = More than half the days Trouble relaxin = Several days Being so restless that it is hard to sit still: 0 = Not at all Becoming easily annoyed or irritable: 0 = Not at all Feeling afraid as if something awful might happen: 0 = Not at all Total ELIZABETH-7 score (0-4 normal; 5-9 mild; 10-14 moderate; 15-21 severe): 4 Source: Developed by Drs. Bakari Escobedo, Shireen Riley, Luis Leo and colleagues, with an educational janay from [employer]. ELIZABETH-7 Assessment Billing ELIZABETH-7 Assessment Tool: ELIZABETH-7 Assessment 76409 Review of Systems Const Denies chills, Denies fever(s) and Denies headache(s) Eyes Denies blurry vision ENT Denies headache(s), Denies nasal discharge, Denies nasal obstruction, Denies odynophagia and Denies sinus pain Card Denies chest pain at rest and Denies chest pain with activity Resp Denies cough and Denies hemoptysis GI Denies diarrhea, Denies odynophagia, Denies vomiting and Denies hematemesis Reports as per HPI Musc Denies abnormal gait Skin/Breast Reports as per HPI Neuro Denies Neuro-related abnormal movements, Denies Abnormal speech present, Denies abnormal gait, Denies headache(s) and Denies Sensory deficit (Neuro) Psych Denies mood swings and Denies paranoia Endo Reports as per HPI [place]/Lymph Reports as per HPI Aller/Immun Reports as per HPI Physical exam (Primary Care) Vital Signs: Last Vital Signs Pulse 83 10/06/23 13:46 BP 124/78 10/06/23 13:46 Pulse Ox 96 10/06/23 13:46 Oxygen Delivery Method Room Air 10/06/23 13:46 BMI result Body Mass Index 36.5 Tobacco/Smoking Status: Tobacco use Status Tobacco use date assessed 10/06/23 10/06/23 13:51 Patient Tobacco Use Status Former Tobacco user 10/06/23 13:51 e-Cigarette/Vaping Use Former Use 10/06/23 13:51 PHQ-9: PHQ-9 Score PHQ-9: Total score 8 10/06/23 13:58 Depression Screening Interpretation: Negative Thrive Assessment: Date of Thrive Assessment Date Thrive assessed 10/06/23 10/06/23 13:51 Currently or been in a relationship where the following occur: No concerns reported Const General: cooperative, comfortable and no acute distress Orientation/consciousness: patient oriented x3 HENMT Head: Yes normocephalic and Yes atraumatic Eyes General: appearance normal, both eyes and all related structures Pupils: Equal, round and reactive pupils present EOM: EOMs intact bilaterally Neck Neck: Yes supple and No lymphadenopathy Thyroid: Thyroid normal Lymphatic: no lymphadenopathy noted Resp Effort & Inspection: normal respiratory effort and able to speak in complete sentences Auscultation: clear to auscultation bilaterally Cardio Heart sounds: S1 normal heart sound present and S2 normal heart sound present GI Palpation (GI): Soft to palpation and nontender Auscultation: normal bowel sounds General: Yes no CVA tenderness Back/Spine/Pelvis Back: no CVA tenderness Skin General skin exam: elasticity normal and turgor normal Neuro General: patient oriented x3 and gait normal Cranial nerves: Yes Equal, round and reactive pupils present Speech: No Abnormal speech present Sensory Exam: No Sensory deficit (Neuro) Coordination: tandem gait normal and Romberg test negative Extrem General: Yes normal exam except as noted and No edema Assessment and Plan Assessment & Plan (1) Encounter for general adult medical examination with abnormal findings: Code(s): Z00.01 - Encounter for general adult medical examination with abnormal findings (2) Colon cancer screening: Code(s): Z12.11 - Encounter for screening for malignant neoplasm of colon (3) Diabetes 1.5, managed as type 2: Code(s): E13.9 - Other specified diabetes mellitus without complications (4) Lipid disorder: Code(s): E78.9 - Disorder of lipoprotein metabolism, unspecified (5) Hypertension, essential: Code(s): I10 - Essential (primary) hypertension (6) Depression, major, recurrent: Code(s): F33.9 - Major depressive disorder, recurrent, unspecified Qualifiers: Active/Remission status: in partial remission Qualified Code(s): F33.41 - Major depressive disorder, recurrent, in partial remission (7) Chronic GERD: Code(s): K21.9 - Gastro-esophageal reflux disease without esophagitis (8) Diabetic nephropathy: Code(s): E11.21 - Type 2 diabetes mellitus with diabetic nephropathy Qualifiers: Diabetes mellitus type: type 2 Qualified Code(s): E11.21 - Type 2 diabetes mellitus with diabetic nephropathy (9) Microalbuminuria: Code(s): R80.9 - Proteinuria, unspecified Plan Patient is a 48-year-old gentleman came today physical examination Sugars continued to be high He is on long acting insulin 35 units at night and 40 units in the morning And Trulicity I am increasing the dose of Trulicity to 3 mg once a week Due for colonoscopy order placed Follow-up 4 months physical exam 1 year BMI is elevated patient is having difficulty losing weight Vital signs are still Medication list reviewed Nystatin and meclizine refill sent Orders: Referrals Gastroenterology Referral Z12.11 - Encounter for screening for malignant neoplasm of colon Medications: Changed From Trulicity (dulaglutide) 0.75 mg (0.5 mL) subcut QWEEK 30 days 2 mL 0RF NS To dulaglutide 3 mg (0.5 mL) subcut QWEEK 30 days 2.5 mL 2RF Refilled meclizine 25 mg PO BID PRN 90 tabs 0RF dizziness nystatin 1 appl topical DAILY 30 days 30 grams 1RF Coding Level of Care Code Est Pt Level 3 (14288) Est Pt Prev Care 40-64y(32429) Diagnoses Encounter for general adult medical examination with abnormal findings Z00.01 Colon cancer screening Z12.11 Diabetes 1.5, managed as type 2 E13.9 Lipid disorder E78.9 Hypertension, essential I10 Recurrent major depressive disorder, in partial remission F33.41 Active/Remission status: in partial remission Chronic GERD K21.9 Diabetic nephropathy associated with type 2 diabetes mellitus E11.21 Diabetes mellitus type: type 2 Microalbuminuria R80.9 Additional Codes ELIZABETH-7 Assessment Billing - ELIZABETH-7 Assessment Tool: ELIZABETH-7 Assessment [id number] ([id number])
== END 2023-10-06 14:45 | disposition home or self-care (01) ==
PROVIDERS: PCP Internal Medicine; Visit Provider Internal Medicine
DX: Z00.01 Encounter for general adult medical examination with abnormal findings (principal); F33.41 Major depressive disorder, recurrent, in partial remission; E11.21 Type 2 diabetes mellitus with diabetic nephropathy; E78.9 Disorder of lipoprotein metabolism, unspecified; Z12.11 Encounter for screening for malignant neoplasm of colon; I10 Essential (primary) hypertension; K21.9 Gastro-esophageal reflux disease without esophagitis; R80.9 Proteinuria, unspecified
CPT/HCPCS: 99213; 99396

== ENCOUNTER 2023-10-21 13:09 | Outpatient (AMB) | payer OTHER, SELFPAY ==
--- NOTE | 2023-10-21 13:30 | A.OFFVIS_ITS ---
Vital Signs 10/21/23 13:35 Height 5 ft 11 in Weight 260 lb 2.327 oz BMI 36.3 BP 118/76 Blood Pressure Location Rt brachial Position Sitting Pulse 67 Pulse Source Pulse Oximeter Intake Visit Reasons: DM Intake Note: Patient presents today to re-establish treatment for Type 2 Diabetes Mellitus: Last Diabetic eye exam was on: DUE Last Podiatry exam was on: Does not see a Haz Tech Most recent HbA1c: 8.8%, 10/21/2023 Random Glucose- 247mg/dL, Today Assistant Front Office Manager Required: No Accompanied by: Self / Same As Patient Allergies No Known Allergies Allergy (Verified 10/21/23 13:37) Medication List - Last Reconciled 10/21/23 by Latonia Gallagher MD amlodipine 10 mg PO DAILY 90 days bisacodyl (Dulcolax (bisacodyl)) 10 mg (2 x 5 mg) PO BEDTIME blood sugar diagnostic (FreeStyle Lite Strips) Use to check blood sugars three times daily and if symptomatic with hypo/hyperglycemia cholecalciferol (vitamin D3) 25 mcg PO DAILY 90 days citalopram 40 mg PO DAILY docusate sodium 100 mg PO DAILY dulaglutide 3 mg (0.5 mL) subcut QWEEK 30 days famotidine 40 mg PO DAILY gabapentin 1 cap qam 2 caps qhs orally; 90 days glipizide 10 mg PO BID 90 days insulin glargine U-300 conc subcutaneously 2 times a day; 35 units in the morning and 40 units at night 90 days lancets (FreeStyle Lancets) Use to check blood sugars three times daily and if symptomatic with hypo/hyperglycemia meclizine 25 mg PO BID PRN methylcellulose (laxative) (Citrucel) 500 mg PO DAILY metoclopramide HCl (Reglan) 10 mg PO TID 10 days nystatin 1 appl topical DAILY 30 days ondansetron HCl 8 mg PO Q12H 10 days pantoprazole 40 mg PO DAILY pen needle, diabetic (Easy Comfort [place]) Once at night polyethylene glycol 3350 (Miralax) 17 grams PO DAILY sucralfate (Carafate) 10 mL PO BID PRN 30 days HPI Comments Details: The patient is a 48 year old male with insulin dependent diabetes presenting for consult Diabetes since 20s Current prescriptions; lantus 35 units at night and 40 units in the morning, glipizide, trulicity 3 weekly. Taking lantus 50 BID Has not had CGM. Reports blood glucose has been elevated. Denies hypoglycemia Micro/macrovascular complications +neuropathy Eye exam due ROS see HPI PHYSICAL EXAM: GENERAL: Alert and oriented x 3. NAD EYES: EOMI. Anicteric. HENT: Moist mucous membranes. No scleral icterus. No cervical lymphadenopathy. LUNGS: Clear to auscultation bilaterally. CARDIOVASCULAR: Regular rate and rhythm. No murmur. No JVD. ABDOMEN: Soft, non-tender +bs EXTREMITIES: No edema. Non-tender. SKIN: No rashes or lesions. Warm. NEUROLOGIC: No focal neurological deficits. CN II-XII grossly intact PSYCHIATRIC: Cooperative. Appropriate mood and affect [facility] Medical History Paresthesias Depression Anxiety Neck pain Hypersomnia Snoring Obstructive sleep apnea Herpes simplex type 1 antibody positive Lumbar pain Hip pain, right Microalbuminuria Diabetic nephropathy Restless leg syndrome Vitamin D deficiency Chronic GERD Depression, major, recurrent Hypertension, essential Lipid disorder Diabetes 1.5, managed as type 2 Surgical History History of esophagogastroduodenoscopy (EGD) Hx of colonoscopy H/O knee surgery No pertinent past surgical history Family History Father Stroke Diabetes mellitus Kidney disease Mother HTN (hypertension) Brother No problems noted. Sister No problems noted. Sister No problems noted. Sister No problems noted. Social History Housing: Apartment Alcohol intake: current Alcohol intake frequency: a few times a month Patient Tobacco Use Status: Former Tobacco user Cigarettes Per Day: 1 e-Cigarette/Vaping Use: Former Use Substance Use Type: Marijuana Current occupational status: employed Cognitive needs: No Hearing needs: No Vision needs: Yes Physical Exam Vital Signs: Last Vital Signs Pulse 67 10/21/23 13:35 BP 118/76 10/21/23 13:35 BMI result Body Mass Index 36.3 Results AMB Hemoglobin A1c AMB Hemoglobin A1c 8.8 % Last Edit by VIOLETTA Mijares on 10/21/23 13:50 Results Reviewed Results Reviewed: Laboratory Last Values Glucose (Clinic) 247 mg/dL (60-115) H 10/21/23 13:41 Hgb A1c (Clinic) 8.8 % (4.0-6.0) H 10/21/23 13:45 Assessment & Plan Assessment & Plan (1) Uncontrolled diabetes mellitus: Code(s): E11.65 - Type 2 diabetes mellitus with hyperglycemia Category: Medical Qualifiers: Diabetes mellitus type: type 2 Glycemic state: with hyperglycemia Qualified Code(s): E11.65 - Type 2 diabetes mellitus with hyperglycemia Plan: Needs some diabetic education. Was changing long acting insulin doses based on spot blood glucose. Overall very motivated Start humalog 10 BID with meals then 10 TID as tolerated. Difficult to dose based on lack of blood glucose readings. reinforced bring meter etc to every visit. Will follow up in a few weeks. tobacco prevention health educator visit requested. (2) Insulin long-term use: Code(s): Z79.4 - [facility] (current) use of insulin Category: Medical Plan: see above Orders: Orders AMB Hemoglobin A1c 10/21/23 E11.65 - Type 2 diabetes mellitus with hyperglycemia Medications: New insulin lispro (Humalog KwikPen (U-100) Insulin) 10 units (0.1 mL) subcut TID 15 mL 3RF FreeStyle Soniya 3 [place] (blood-glucose meter,continuous) As directed 1 ea 0RF NS E11.65 - Type 2 diabetes mellitus with hyperglycemia, Z79.4 - [facility] (current) use of insulin FreeStyle Soniya 3 Sensor (blood-glucose sensor) As directed 1 ea 0RF NS E11.65 - Type 2 diabetes mellitus with hyperglycemia, Z79.4 - [facility] (current) use of insulin gabapentin 300 mg PO BID 180 caps 0RF Changed From insulin glargine U-300 conc subcutaneously 2 times a day; 35 units in the morning and 40 units at night 90 days 45 mL 2RF E11.65 - Type 2 diabetes mellitus with hyperglycemia To insulin glargine U-300 conc 50 units (0.1667 mL) subcut BID 60 mL 3RF 90 days E11.65 - Type 2 diabetes mellitus with hyperglycemia Discontinued gabapentin Discontinued Reason: Doctor's Order 1 cap qam 2 caps qhs orally; 90 days 270 caps 2RF Coding Level of Care Code Est Pt Level 5 (87587) Diagnoses Uncontrolled type 2 diabetes mellitus with hyperglycemia E11.65 Diabetes mellitus type: type 2 Glycemic state: with hyperglycemia Insulin long-term use Z79.4
[2023-10-21 13:35] VITALS: BP 118/76; PULSE 67; BMI 36.3
[2023-10-21 13:44] LABS: Glucose, Whole Blood 247 mg/dL (60-115)
== END 2023-10-21 14:18 | disposition home or self-care (01) ==
PROVIDERS: PCP Internal Medicine; Visit Provider Internal Medicine
DX: E11.65 Type 2 diabetes mellitus with hyperglycemia (principal); Z79.4 Long term (current) use of insulin
CPT/HCPCS: 99214

== ENCOUNTER → 2023-10-21 13:09 | Outpatient (BNVA) | payer OTHER, SELFPAY | PROVIDERS: PCP Internal Medicine; Visit Provider Internal Medicine | DX: E11.65 Type 2 diabetes mellitus with hyperglycemia (principal); Z79.4 Long term (current) use of insulin | CPT/HCPCS: 82947; 83036; 99212 ==

== ENCOUNTER 2023-11-03 13:14 | Outpatient (AMB) | payer OTHER, SELFPAY ==
--- NOTE | 2023-11-03 13:25 | A.OFFPC_ITS ---
Vital Signs 11/03/23 13:26 Height 5 ft 11 in Weight 263 lb 8 oz BMI 36.7 BP 148/92 H Blood Pressure Location Lt brachial Position Sitting Pulse 77 Pulse Source Pulse Oximeter Pulse Oximetry (%) 95 Oxygen Delivery Method Room Air Intake Visit Reasons: 4 Week Follow up Allergies No Known Allergies Allergy (Verified 11/03/23 13:28) Medication List - Last Reconciled 11/03/23 by Yadira Wilder MD amlodipine 10 mg PO DAILY 90 days bisacodyl (Dulcolax (bisacodyl)) 10 mg (2 x 5 mg) PO BEDTIME blood sugar diagnostic (FreeStyle Lite Strips) Use to check blood sugars three times daily and if symptomatic with hypo/hyperglycemia cholecalciferol (vitamin D3) 25 mcg PO DAILY 90 days citalopram 40 mg PO DAILY docusate sodium 100 mg PO DAILY dulaglutide 3 mg (0.5 mL) subcut QWEEK 30 days famotidine 40 mg PO DAILY FreeStyle Soniya 3 [place] (blood-glucose meter,continuous) As directed NS FreeStyle Soniya 3 Sensor (blood-glucose sensor) As directed NS gabapentin 300 mg PO BID glipizide 10 mg PO BID 90 days insulin glargine U-300 conc 50 units (0.1667 mL) subcut BID 90 days insulin lispro (Humalog KwikPen (U-100) Insulin) 10 units (0.1 mL) subcut TID lancets (FreeStyle Lancets) Use to check blood sugars three times daily and if symptomatic with hypo/hyperglycemia meclizine 25 mg PO BID PRN methylcellulose (laxative) (Citrucel) 500 mg PO DAILY metoclopramide HCl (Reglan) 10 mg PO TID 10 days nystatin 1 appl topical DAILY 30 days ondansetron HCl 8 mg PO Q12H 10 days pantoprazole 40 mg PO DAILY pen needle, diabetic (Easy Comfort Pen [place]) Once at night polyethylene glycol 3350 (Miralax) 17 grams PO DAILY sucralfate (Carafate) 10 mL PO BID PRN 30 days Tobacco use date assessed: 11/03/23 Dental Screening Dental Screen Date: 11/03/23 Did you have a dental visit in the last 12 months?: Yes Did you have a dental problem in the last 6 months where you did not have access to dental care?: No Was dental information given to patient?: Patient has dentist HPI 4 Week Follow up HPI Details Patient is a 48 year gentleman who has a history of hypertension and obesity Has been more active lately and has been playing a competitive sport 4 hours Came in today to be evaluated for chest pain Patient says that he has been feeling chest pain at different locations, sometimes when he takes a deep breath or move EKG done today showed no acute ST T wave findings however there is voltage criteria for LVH I have ordered echocardiogram for the patient For the chest pain I would recommend to take Tylenol. However if chest pain started to get worse he needs to go to emergency room [facility] Medical History Paresthesias Depression Anxiety Neck pain Hypersomnia Snoring Obstructive sleep apnea Herpes simplex type 1 antibody positive Lumbar pain Hip pain, right Microalbuminuria Diabetic nephropathy Restless leg syndrome Vitamin D deficiency Chronic GERD Depression, major, recurrent Hypertension, essential Lipid disorder Diabetes 1.5, managed as type 2 Surgical History History of esophagogastroduodenoscopy (EGD) Hx of colonoscopy H/O knee surgery No pertinent past surgical history Family History Father Stroke Diabetes mellitus Kidney disease Mother HTN (hypertension) Brother No problems noted. Sister No problems noted. Sister No problems noted. Sister No problems noted. Social History Housing: Apartment Alcohol intake: current Alcohol intake frequency: a few times a month Patient Tobacco Use Status: Former Tobacco user Cigarettes Per Day: 1 e-Cigarette/Vaping Use: Former Use Substance Use Type: Marijuana Current occupational status: employed Cognitive needs: No Hearing needs: No Vision needs: Yes Questionnaire PHQ-9 Over the last 2 weeks, how often have you been bothered by any of the following problems? 1. Little interest or pleasure in doing things: several days 2. Feeling down, depressed, or hopeless: several days 3. Trouble falling or staying asleep, or sleeping too much: nearly every day 4. Feeling tired or having little energy: nearly every day 5. Poor appetite or overeating: not at all 6. Feeling bad about yourself - or that you are a failure or have let yourself or your family down: not at all 7. Trouble concentrating on things, such as reading the newspaper or watching television: not at all 8. Moving or speaking so slowly that other people could have noticed. Or the opposite - being so fidgety or restless that you have been moving around a lot more than usual: not at all 9. Thoughts that you would be better off or of hurting yourself in some way: not at all Total score: 8 Depression Screening Interpretation: Negative Depression Screening Done: Yes 77421 - PHQ-9 Billing: Yes Source: Developed by Drs. Bakari Escobedo, Shireen Riley, Luis Leo and colleagues, with an educational janay from [employer]. Thrive Questionnaire Date Thrive assessed: 11/03/23 I am a: Patient What is your living situation today?: I have a steady place to live Within the past 12 months, did the food you bought not last and you didn't have the money to get more?: Sometimes True Within the past 12 months, did you worry whether your food would run out before you got money to buy more?: Never true Do you have trouble paying for medicines?: No Do you have trouble getting transportation to medical appointments?: No Do you have trouble paying your heating and electricity bill?: No Do you have trouble taking care of your child, family member or friend?: No Do you have trouble with day-to-day activities such as bathing, preparing meals, shopping, managing finances, etc.?: No Are you currently unemployed and looking for a job?: Yes Are you interested in more education?: No Please select the resources that you would like help with: Housing/Care Home and Food Currently or been in a relationship where the following occur: No concerns reported THRIVE Score: 1 AUDIT C Alcohol Use Questionnaire (AUDIT-C) 1. How often do you have a drink containing alcohol?: 2-3 times a week 2. How many drinks containing alcohol do you have on a typical day when you are drinking?: 1 or 2 3. How often do you have six or more drinks on one occasion?: Never Total Score: 3 Score Reviewed/Action Taken: Yes ELIZABETH-7 AMB Questionnaire ELIZABETH-7 Date ELIZABETH - 7 assessed: 11/03/23 Feeling nervous, anxious, or on edge: 1 = Several days Not being able to stop or control worryin = Not at all Worrying too much about different things: 2 = More than half the days Trouble relaxin = Several days Being so restless that it is hard to sit still: 0 = Not at all Becoming easily annoyed or irritable: 0 = Not at all Feeling afraid as if something awful might happen: 0 = Not at all Total ELIZABETH-7 score (0-4 normal; 5-9 mild; 10-14 moderate; 15-21 severe): 4 Source: Developed by Drs. Bakari Escobedo, Shireen Riley, Luis Leo and colleagues, with an educational janay from [employer]. ELIZABETH-7 Assessment Billing ELIZABETH-7 Assessment Tool: ELIZABETH-7 Assessment 59020 Review of Systems Const Denies chills and Denies fever(s) ENT Denies epistaxis and Denies nasal discharge Resp Denies chest congestion, Denies cough and Denies hemoptysis GI Denies diarrhea and Denies nausea Skin/Breast Denies rash Neuro Reports no additional complaints Psych Reports no additional complaints Endo Reports no additional complaints Physical exam (Primary Care) Vital Signs: Last Vital Signs Pulse 77 11/03/23 13:26 BP 148/92 H 11/03/23 13:26 Pulse Ox 95 11/03/23 13:26 Oxygen Delivery Method Room Air 11/03/23 13:26 BMI result Body Mass Index 36.7 Tobacco/Smoking Status: Tobacco use Status Tobacco use date assessed 11/03/23 11/03/23 13:28 Patient Tobacco Use Status Former Tobacco user 11/03/23 13:28 e-Cigarette/Vaping Use Former Use 11/03/23 13:28 PHQ-9: PHQ-9 Score PHQ-9: Total score 8 11/03/23 13:29 Depression Screening Interpretation: Negative Thrive Assessment: Date of Thrive Assessment Date Thrive assessed 11/03/23 11/03/23 13:29 Currently or been in a relationship where the following occur: No concerns reported Const General: cooperative, comfortable and no acute distress Orientation/consciousness: patient oriented x3 HENMT Head: Yes normocephalic Eyes General: appearance normal, both eyes and all related structures Neck Neck: Yes supple Chest Other: No pain with palpation just Resp Effort & Inspection: normal respiratory effort, no cough and no stridor Cardio Rhythm: regular rhythm Heart sounds: S1 normal heart sound present and S2 normal heart sound present Skin General skin exam: turgor normal Neuro General: patient oriented x3, tone normal and moves all extremities Extrem Right lower extremity: no edema Left lower extremity: no edema Assessment and Plan Assessment & Plan (1) Chest pain: Code(s): R07.9 - Chest pain, unspecified Qualifiers: Chest pain type: other chest pain Qualified Code(s): R07.89 - Other chest pain (2) Hypertension, essential: Code(s): I10 - Essential (primary) hypertension (3) Abnormal EKG: Code(s): R94.31 - Abnormal electrocardiogram [ECG] [EKG] Plan Patient is a 48 year gentleman who has a history of hypertension and obesity Has been more active lately and has been playing a competitive sport for hours Came in today to be evaluated for chest pain Patient says that he has been feeling chest pain at different locations, sometimes when he takes a deep breath or move EKG done today showed no acute ST T wave findings however there is voltage criteria for LVH I have ordered echocardiogram for the patient For the chest pain I would recommend to take Tylenol. However if chest pain started to get worse he needs to go to emergency room Orders: Orders CA echo transthoracic complete Today I10 - Essential (primary) hypertension, R94.31 - Abnormal electrocardiogram [ECG] [EKG] Coding Level of Care Code Est Pt Level 4 (45251) Diagnoses Other chest pain R07.89 Chest pain type: other chest pain Hypertension, essential I10 Abnormal EKG R94.31 Additional Codes ELIZABETH-7 Assessment Billing - ELIZABETH-7 Assessment Tool: ELIZABETH-7 Assessment 30322 ([id number])
[2023-11-03 13:26] VITALS: BP 148/92; PULSE 77; O2SAT 95; BMI 36.7
== END 2023-11-03 14:42 | disposition home or self-care (01) ==
PROVIDERS: PCP Internal Medicine; Visit Provider Internal Medicine
DX: R07.89 Other chest pain (principal); I10 Essential (primary) hypertension; R94.31 Abnormal electrocardiogram [ECG] [EKG]
CPT/HCPCS: 99214

== ENCOUNTER 2023-11-23 15:42 | Outpatient (AMB) | payer OTHER, SELFPAY ==
[2023-11-23 15:46] VITALS: BP 136/84; PULSE 76; O2SAT 97; BMI 37.0
--- NOTE | 2023-11-23 15:46 | A.OFFVIS_ITS ---
Vital Signs 11/23/23 15:46 Height 5 ft 11 in Weight 265 lb 6.985 oz BMI 37.0 BP 136/84 Blood Pressure Location Rt brachial Position Sitting Pulse 76 Pulse Source Pulse Oximeter Pulse Oximetry (%) 97 Oxygen Delivery Method Room Air Intake Visit Reasons: 6 month follow up Intake Note: Daniel presents in office today for a scheduled 6 mos FUV. CC; Pt did have recent lab work done. Pt was also rx'd famotidine, citrucel, colace, and dulcolax. Pt reports that they have been more or less stable since their last visit. However, they do have concerns regarding a mass that is present in the RUQ of their abdomen. Pt is concerned because it has been feeling somewhat larger and has been causing pain and nausea which has been worsening and becoming more frequent. Pt has also been complaining of vertigo. Pt reports having lack of appetite, early satiety, and constipation. Pt has still been taking the stool softener which has been helping but not a great deal. [employer] Chair Required: No Allergies No Known Allergies Allergy (Verified 11/23/23 15:53) HPI HPI 6 month follow up: Details: LAST VISIT: Abdominal bloating Chronic GERD Chronic idiopathic constipation Postprandial abdominal bloating Postprandial diarrhea Postprandial epigastric pain Plan Most likely patient's cause for diarrhea is that he is actually very constipated and does not have enough fiber. Bulking his stools with fiber. Dulcolax will be ordered for him at bedtime. Will rule out inflammatory bowel disease, malabsorption. Will rule out H pylori. Will treat empirically if positive. Patient will return in 6 months. Depending on what his results will show patient in the meantime will be scheduled for colonoscopy. Will change pantoprazole to 40 daily and famotidine at bedtime. Discussed with patient avoiding dietary t riggers and late night snacking. Staying upright for minimum 3 hours after meals discussed with patient. Patient will call our office if he will continue to have symptoms and we will send him for colonoscopy and upper endoscopy. Patient is agreeable to this plan and verbalizes understanding of instructions. He was given the opportunity to ask questions and all questions answered. ? Thank you for allowing me to participate in his care Orders Orders Calprotectin, Fecal Today R15.9 Hemoglobin A1c Today E11.9 Vitamin B12 and Folate Today R19.7 C Reactive Protein Today K58.9 H pylori Ag Stool Today K21.9 Vitamin D 25-OH (D2 and D3) Today E55.9 Medications New docusate sodium 100 mg PO DAILY 30 caps 3RF K59.00 bisacodyl (Dulcolax (bisacodyl)) 10 mg (2 x 5 mg) PO BEDTIME 180 tabs 4RF pantoprazole take one tablet half an hour before breakfast 40 mg PO DAILY 30 tabs 2RF K21.9 methylcellulose (laxative) (Citrucel) take it with full glass of water 500 mg PO DAILY 90 tabs 2RF K59.00 Refilled famotidine 40 mg PO DAILY 30 tabs 3RF Discontinued docusate sodium Discontinued Reason: Duplicate 100 mg PO BEDTIME 90 caps 3RF K59.00 pantoprazole Discontinued Reason: Doctor's Order 20 mg PO BID 90 days 180 tabs 0RF TODAY'S VISIT: Patient is here today for follow-up. Patient reports that he has been feeling well, however he continues to be very constipated. Patient reports occasional dyspepsia without dysphagia or odynophagia. Reports of sit reflux sometimes depending on what he eats. Patient is unlabored to lose weight. Gained more since last visit. Patient denies melena, hematochezia, unintentional weight loss or ribbon like stools. Stool calprotectin elevated as well as CRP. Patient should undergo colonoscopy. Patient reports right upper quadrant discomfort. States that when he eats he feels like there is a bulge sticking out on the right upper quadrant. Patient reports tenderness when this happens. [facility] Medical History Paresthesias Depression Anxiety Neck pain Hypersomnia Snoring Obstructive sleep apnea Herpes simplex type 1 antibody positive Lumbar pain Hip pain, right Microalbuminuria Diabetic nephropathy Restless leg syndrome Vitamin D deficiency Chronic GERD Depression, major, recurrent Hypertension, essential Lipid disorder Diabetes 1.5, managed as type 2 Surgical History History of esophagogastroduodenoscopy (EGD) Hx of colonoscopy H/O knee surgery No pertinent past surgical history Family History Father Stroke Diabetes mellitus Kidney disease Mother HTN (hypertension) Brother No problems noted. Sister No problems noted. Sister No problems noted. Sister No problems noted. Social History Housing: Apartment Alcohol intake: current Alcohol intake frequency: a few times a month Patient Tobacco Use Status: Former Tobacco user Cigarettes Per Day: 1 e-Cigarette/Vaping Use: Former Use Substance Use Type: Marijuana Current occupational status: employed Cognitive needs: No Hearing needs: No Vision needs: Yes Review of Systems Const Denies weight gain and Denies weight loss ENT Reports no additional complaints, Denies dysphagia and Denies odynophagia Card Reports no additional complaints Resp Reports no additional complaints GI Reports abdominal pain (RUQ), Denies belching, Denies melena, Reports bloating, Denies change in bowel habits, Reports constipation, Denies dysphagia, Denies excessive flatus, Denies dyspepsia, Reports heartburn, Denies diarrhea, Denies loose stools, Denies nausea, Denies odynophagia and Denies vomiting Reports no additional complaints Musc Reports no additional complaints Neuro Reports no additional complaints Psych Reports no additional complaints Endo Reports no additional complaints Physical Exam Vital Signs: Last Vital Signs Pulse 76 11/23/23 15:46 BP 136/84 11/23/23 15:46 Pulse Ox 97 11/23/23 15:46 Oxygen Delivery Method Room Air 11/23/23 15:46 BMI result Body Mass Index 37.0 Const General: healthy appearing and no acute distress Nutritional Appearance: obese Orientation/consciousness: patient oriented x3 Resp Effort & Inspection: normal respiratory effort, able to speak in complete sentences, no tracheal deviation and symmetric chest movement Auscultation: clear to auscultation bilaterally Cardio Rate: regular rate GI Inspection: Yes normal to inspection, No distended and Yes obesity Palpation (GI): Soft to palpation, not firm, nontender and No hepatosplenomegaly present Auscultation: normal bowel sounds General: Yes no CVA tenderness Back/Spine/Pelvis Back: no CVA tenderness Skin General skin exam: elasticity normal, turgor normal and dry skin Neuro General: patient oriented x3 Psych Appearance: grossly normal Mental Status: mental status grossly normal Results Reviewed Results Reviewed: Laboratory Tests 07/02/23 07/22/23 10/21/23 11:58 15:12 13:45 Hgb A1c (Clinic) 8.8 H Hemoglobin A1c % 9.9 H Total Bilirubin 0.7 AST 32 ALT 26 Alkaline Phosphatase 98 C-Reactive Protein 0.51 H Vitamin B12 331 25-OH Vitamin D Total 28 L Folate 5.2 Assessment & Plan Assessment & Plan (1) Right upper quadrant pain: Code(s): R10.11 - Right upper quadrant pain Category: Medical (2) Uncontrolled diabetes mellitus: Code(s): E11.65 - Type 2 diabetes mellitus with hyperglycemia Category: Medical Qualifiers: Diabetes mellitus type: type 2 Glycemic state: with hyperglycemia Qualified Code(s): E11.65 - Type 2 diabetes mellitus with hyperglycemia (3) Epigastric discomfort: Code(s): R10.13 - Epigastric pain Category: Medical (4) Benign positional vertigo: Code(s): H81.10 - Benign paroxysmal vertigo, unspecified ear Category: Medical Qualifiers: Laterality: bilateral Qualified Code(s): H81.13 - Benign paroxysmal vertigo, bilateral (5) Abdominal bloating: Code(s): R14.0 - Abdominal distension (gaseous) Category: Medical (6) Fatty liver: Code(s): K76.0 - Fatty (change of) liver, not elsewhere classified Category: Medical Plan Discussed with patient avoiding dietary triggers. Discussed with patient losing weight avoiding food high in fat, fried. Patient continues to have right upper quadrant pain. Negative Florentino sign on exam. Hyperactive bowel sounds. Patient will be sent for HIDA scan to rule out biliary dyskinesia. Patient will be referred to Cardiology as he is complaining of shortness of breath and chest pressure with activity. Feeling more tired lately. I would like to send him for colonoscopy, however I think he should get evaluated by Cardiology 1st. Continue Dulcolax and stool softeners. Patient will call our office if he will have any GI concerning symptoms. He is agreeable to current plan of care and verbalizes understanding of instructions. He was given the opportunity to ask questions and all questions answered. Orders: Orders NM hepatobiliary w pharm 11/23/23 R10.11 - Right upper quadrant pain Referrals Cardiology Referral [id number] - Encounter for preprocedural cardiovascular examination Medications: Refilled docusate sodium 100 mg PO DAILY 30 caps 3RF K59.00 - Constipation, unspecified bisacodyl (Dulcolax (bisacodyl)) 10 mg (2 x 5 mg) PO BEDTIME 180 tabs 4RF Discontinued metoclopramide HCl Discontinued Reason: Doctor's Order 10 mg PO TID 10 days 30 tabs 0RF nausea and vomiting ondansetron HCl Discontinued Reason: Patient no longer taking 8 mg PO Q12H 10 days 20 tabs 0RF Nausea vomiting Coding Level of Care Code Est Pt Level 4 (03271) Diagnoses Right upper quadrant pain R10.11 Uncontrolled type 2 diabetes mellitus with hyperglycemia E11.65 Diabetes mellitus type: type 2 Glycemic state: with hyperglycemia Epigastric discomfort R10.13 Benign paroxysmal positional vertigo due to bilateral vestibular disorder H81.13 Laterality: bilateral Abdominal bloating R14.0 Fatty liver K76.0 Time Spent (min) 35 Comment 20 minutes spent with patient and additional 15 minutes spent reviewing his records
== END 2023-11-23 16:35 | disposition home or self-care (01) ==
PROVIDERS: PCP Internal Medicine; Visit Provider Nurse Practitioner Family
DX: R10.11 Right upper quadrant pain (principal); E11.65 Type 2 diabetes mellitus with hyperglycemia; R10.13 Epigastric pain; H81.13 Benign paroxysmal vertigo, bilateral; R14.0 Abdominal distension (gaseous); K76.0 Fatty (change of) liver, not elsewhere classified
CPT/HCPCS: 99214

== ENCOUNTER → 2023-11-23 15:42 | Outpatient (BNVA) | payer OTHER, SELFPAY | PROVIDERS: PCP Internal Medicine; Visit Provider Nurse Practitioner Family | DX: K21.9 Gastro-esophageal reflux disease without esophagitis (principal); K59.04 Chronic idiopathic constipation; R10.11 Right upper quadrant pain; R10.13 Epigastric pain; H81.13 Benign paroxysmal vertigo, bilateral; E11.65 Type 2 diabetes mellitus with hyperglycemia; R14.0 Abdominal distension (gaseous); K76.0 Fatty (change of) liver, not elsewhere classified; Z79.899 Other long term (current) drug therapy | CPT/HCPCS: 99212 ==

== ENCOUNTER 2023-12-23 09:58 | Outpatient (AMB) | payer OTHER, SELFPAY ==
[2023-12-23 10:48] VITALS: BP 140/100; PULSE 72; RESP 28; TEMP 36.8; O2SAT 98; BMI 35.7
--- NOTE | 2023-12-23 10:48 | MHC.OFFWIV ---
Intake Vital Signs 12/23/23 10:48 Height 5 ft 11 in Weight 256 lb BMI 35.7 BP 140/100 H Blood Pressure Location Rt brachial Position Sitting Respiration 28 H Pulse 72 Pulse Source Pulse Oximeter Temp 98.2 F Temp Source Oral Pulse Oximetry (%) 98 Oxygen Delivery Method Room Air Intake Visit Reasons: EP vomiting 4 days, fever Intake Note: Patient here for vomiting, fevers, dizziness, chills, elevated sugars. Patient Tobacco Use Status: Former Tobacco user Allergies No Known Allergies Allergy (Verified 12/23/23 10:49) Do you need a note to return to daycare/school/sports/work: No HPI EP vomiting 4 days, fever HPI Details This note is constructed using voice recognition software. While every effort has been made to ensure accuracy, quality assurance clerk errors may have been included. The patient is a 48 year old male who presents to the clinic today with nausea, vomiting, abdominal pain the past 4 days. He reports that he ran out of his long-acting insulin 4 days ago, as he was in between health insurances. He notes he also 4 days ago went out drinking, doing shots of whiskey. His sugars have been running in the 400s at home. Shortly after running out of his long-acting insulin he developed nausea and vomiting, and upper abdominal pain across the entire abdomen. He reports that he is unable to keep any food in an very limited fluids. He reports that he has been breathing faster since all of this. He denies confusion, dizziness, lightheadedness. [facility] Medical History Paresthesias Depression Anxiety Neck pain Hypersomnia Snoring Obstructive sleep apnea Herpes simplex type 1 antibody positive Lumbar pain Hip pain, right Microalbuminuria Diabetic nephropathy Restless leg syndrome Vitamin D deficiency Chronic GERD Depression, major, recurrent Hypertension, essential Lipid disorder Diabetes 1.5, managed as type 2 Surgical History History of esophagogastroduodenoscopy (EGD) Hx of colonoscopy H/O knee surgery No pertinent past surgical history Family History Father Stroke Diabetes mellitus Kidney disease Mother HTN (hypertension) Brother No problems noted. Sister No problems noted. Sister No problems noted. Sister No problems noted. Social History Housing: Apartment Alcohol intake: current Alcohol intake frequency: a few times a month Patient Tobacco Use Status: Former Tobacco user Cigarettes Per Day: 1 e-Cigarette/Vaping Use: Former Use Substance Use Type: Marijuana Current occupational status: employed Cognitive needs: No Hearing needs: No Vision needs: Yes Review of Systems Const All systems reviewed & are unremarkable except as noted in HPI and below Physical Exam Vital Signs: Last Vital Signs Temp 98.2 F 12/23/23 10:48 Pulse 72 12/23/23 10:48 BP 140/100 H 12/23/23 10:48 Pulse Ox 98 12/23/23 10:48 Oxygen Delivery Method Room Air 12/23/23 10:48 BMI result Body Mass Index 35.7 Const General: cooperative, healthy appearing, comfortable, no acute distress and well developed Orientation/consciousness: patient oriented x3 Limitations: no limitations Eyes General: appearance normal, both eyes and all related structures Resp Effort & Inspection: normal respiratory effort, able to speak in complete sentences and tachypneic Auscultation: clear to auscultation bilaterally Cardio Rate: regular rate Rhythm: regular rhythm Heart sounds: normal S1 and S2 GI Inspection: Yes normal to inspection Palpation (GI): Soft to palpation and Tenderness to palpation present (GI) other (Entire upper abdomen) Skin General skin exam: no rashes or lesions noted Neuro General: patient oriented x3 Extrem General: Yes normal to inspection Results AMB Random Glucose (hemocue) AMB Random Glucose (hemocue) 294 mg/dL Last Edit by REAGAN Santa on 12/23/23 11:00 Assessment & Plan Assessment & Plan (1) Hyperglycemia: Code(s): R73.9 - Hyperglycemia, unspecified Plan: Physical examination and history concerning for potential DKA. In office glucose elevated. Advised patient to be evaluated in the emergency room for rapid labs and potential treatment. Called [facility] Emergency Room ahead with report on patient. Patient declined EMS transfer. Plan See above for full details and plan. Coding Level of Care Code Est Pt Level 4 (92471) Diagnoses Hyperglycemia R73.9
== END 2023-12-23 11:14 | disposition home or self-care (01) ==
PROVIDERS: PCP Internal Medicine; Visit Provider Registered Nurse
DX: Z13.9 Encounter for screening, unspecified (principal); R73.9 Hyperglycemia, unspecified

== ENCOUNTER → 2023-12-23 09:58 | Outpatient (BNVA) | payer OTHER, SELFPAY | PROVIDERS: PCP Internal Medicine; Visit Provider Registered Nurse | DX: R73.9 Hyperglycemia, unspecified (principal) | CPT/HCPCS: 82948; 99212 ==

== ENCOUNTER 2023-12-23 11:22 | Emergency (ER) | payer OTHER, SELFPAY ==
--- NOTE | ~2023-12-23 | CT_ITS ---
EXAMINATION: CT ABDOMEN AND PELVIS WITH CONTRAST CLINICAL INFORMATION: Epigastric pain, history of pancreatitis COMPARISON: None available. TECHNIQUE: Multidetector volumetric images were obtained from the superior aspect of the liver through the pubic symphysis following administration 85 mL of Omnipaque 350 intravenous contrast. Sagittal and coronal reformatted images were obtained on the technologist's workstation. Oral contrast: No This CT examination was performed using dose optimization techniques as appropriate, variously including the following: *Automated exposure control *Adjustment of mA and/or kV according to patient size (this includes techniques or standardized protocols for targeted exams where dose is matched to indication/reason for exam; i.e. extremities or head) *Use of iterative reconstruction technique DLP: 727 mGy-cm FINDINGS: LUNG BASES: The visualized lung bases are unremarkable. LIVER, GALLBLADDER, AND BILIARY TREE: Liver is mildly enlarged measuring 19.2 cm in the craniocaudal dimension. Normal surface contour. Subtle hypodensity along the falciform ligament in the left hepatic lobe may relate to focal fatty infiltration. No focal hepatic lesion. No biliary ductal dilation.The gallbladder is unremarkable with no evidence of radiopaque gallstones, gallbladder wall thickening, or obvious pericholecystic inflammatory changes. PANCREAS: Unremarkable. SPLEEN: Unremarkable. ADRENAL GLANDS: Unremarkable. KIDNEYS AND URETERS: The kidneys are normal in size, shape, and attenuation. No hydronephrosis, hydroureter, or calculi seen. No perinephric stranding. BLADDER: Unremarkable. GASTROINTESTINAL TRACT: Stomach and small bowel are non-dilated. There is no colonic wall thickening or pericolonic inflammatory changes. The appendix is unremarkable. ABDOMINAL WALL: No significant hernia is appreciated. LYMPH NODES: No abdominopelvic lymphadenopathy. VASCULAR: The abdominal aorta is nonaneurysmal. PELVIC VISCERA: Unremarkable. OSSEOUS STRUCTURES: Mild degenerative changes of the visualized spine. No acute or suspicious osseous abnormality. CT/CT abdomen pelvis w IV con IMPRESSION: No acute abdominopelvic abnormality. Electronically signed by: Panfilo See MD 12/23/2023 03:56 PM EDT
--- NOTE | ~2023-12-23 | US_ITS ---
EXAMINATION: US ABDOMEN LIMITED CLINICAL INFORMATION: GB only, RUQ pain abnormal LFTs/bilirubin. COMPARISON: Ultrasound abdomen 04/03/2022 TECHNIQUE: Real-time imaging of the right upper quadrant abdominal viscera. FINDINGS: GALLBLADDER: The gallbladder is physiologically distended without evidence of stones, sludge, polyps, wall thickening or pericholecystic fluid. COMMON BILE DUCT: Normal in caliber measuring 0.3 cm in diameter. US/US abdomen limited IMPRESSION: No cholelithiasis or sonographic evidence of acute cholecystitis. Electronically signed by: Panfilo See MD 12/23/2023 03:44 PM EDT
[2023-12-23 11:32] VITALS: BP 158/96; PULSE 89; RESP 20; TEMP 36.6; O2SAT 99; BMI 35.6
--- NOTE | 2023-12-23 11:33 | ED_ITS ---
HPI - General Adult General Chief complaint: Abdominal Pain Stated complaint: Sent by Dr Keyona johnson insulin Time Seen by Provider: 12/23/23 12:20 Source: patient Mode of arrival: ambulatory Limitations: no limitations History of Present Illness ED Provider: SOFIA SPICER narrative: 48 yo male with PMH of IDDM, anxiety and depression, JEIMY, GERD, HTN, HLD, pancreatitis who admits to drinking hard liquor over the weekend and now for the past 4 days has n/v and upper abdominal pain unable to keep anything down and his blood sugars have been in the 400s. No fevers, no diarrhea. He has not had abdominal surgery before. He denies heavy regular ETOH use. He has had pancreatitis one other time he thinks after ETOH use. MD complaint: abdominal pain n/v Onset (ago): day(s) (4) Location: abdomen Radiation: abdomen Severity: moderate Quality: stabbing and aching Pain Consistency: constant Relieving factors: none Exacerbating factors: eating and movement Associated symptoms: loss of appetite, malaise and nausea/vomiting Treatments prior to arrival: none Related Data Previous Rx's ?Medication ?Instructions ?Recorded pen needle, diabetic 33 gauge x #100 ea 09/20/20 (Easy Comfort Pen [place]) blood sugar diagnostic (FreeStyle #100 ea 09/23/20 Lite Strips) lancets 28 gauge (FreeStyle #100 ea 09/23/20 Lancets) polyethylene glycol 3350 17 17 g PO DAILY #510 grams 03/11/22 gram/dose oral powder (Miralax) famotidine 40 mg tablet 40 mg PO DAILY #30 tabs 05/25/23 methylcellulose (laxative) 500 mg 500 mg PO DAILY #90 tabs 05/25/23 tablet (Citrucel) cholecalciferol (vitamin D3) 25 25 mcg PO DAILY 90 days #90 caps 07/14/23 mcg (1,000 unit) capsule sucralfate 100 mg/mL oral 10 ml PO BID PRN Upper abdominal 07/30/23 suspension (Carafate) pain 30 days #600 mL citalopram 40 mg tablet 40 mg PO DAILY #90 tabs 08/27/23 dulaglutide 3 mg/0.5 mL 3 mg (0.5 mL) subcut QWEEK 30 days 10/06/23 subcutaneous pen injector #2.5 mL meclizine 25 mg tablet 25 mg PO BID PRN dizziness #90 tabs 10/06/23 nystatin 100,000 unit/gram topical 1 appl topical DAILY 30 days #30 10/06/23 cream grams FreeStyle Soniya 3 Randolph #1 ea 10/21/23 (blood-glucose meter,continuous) FreeStyle Soniya 3 Sensor #1 ea 10/21/23 (blood-glucose sensor) gabapentin 300 mg capsule 300 mg PO BID #180 caps 10/21/23 insulin glargine U-300 conc 300 50 unit (0.1667 mL) subcut BID 90 10/21/23 unit/mL (1.5 mL) subcutaneous pen days #60 mL insulin lispro 100 unit/mL 10 unit (0.1 mL) subcut TID #15 mL 10/21/23 subcutaneous pen (Humalog KwikPen (U-100) Insulin) pantoprazole 40 mg tablet,delayed 40 mg PO DAILY #30 tabs 11/05/23 release glipizide 10 mg tablet 10 mg PO BID 90 days #180 tabs 11/08/23 amlodipine 10 mg tablet 10 mg PO DAILY 90 days #90 tabs 11/22/23 bisacodyl 5 mg tablet,delayed 10 mg (2 x 5 mg) PO BEDTIME #180 11/23/23 release (Dulcolax (bisacodyl)) tabs docusate sodium 100 mg capsule 100 mg PO DAILY #30 caps 11/23/23 ondansetron 4 mg disintegrating 4 mg PO Q8H PRN nausea and 12/23/23 tablet vomiting #20 tabs Allergies Allergy/AdvReac Type Severity Reaction Status Date / Time No Known Allergies Allergy Verified 12/23/23 11:35 Review of Systems 2 Review of Systems: Constitutional : No Weight loss, No Fever, No Chills ENT/Mouth : No sore throat, No Rhinorrhea Eyes: No Swelling, No Redness Cardiovascular : No Chest Pain, No SOB, NoEdema Respiratory : No Cough, No Sputum, No Wheezing Gastrointestinal : Positive Nausea, Positive Vomiting, no Diarrhea, positive abdominal Pain, No Hematochezia, No Melena Genitourinary : No Dysuria, No Urinary Frequency, No Hematuria, No Urgency Musculoskeletal : No joint pain, No Myalgias, No Joint Swelling Skin : No Skin Lesions, No rash Neuro : No Weakness, No Numbness, No Dizziness, No Headache All other systems reviewed and are negative. [facility] Past Medical History Attestation statement: The following information was validated with the patient. Source: old records reviewed Medical History Paresthesias Depression Anxiety Neck pain Hypersomnia Snoring Obstructive sleep apnea Herpes simplex type 1 antibody positive Lumbar pain Hip pain, right Microalbuminuria Diabetic nephropathy Restless leg syndrome Vitamin D deficiency Chronic GERD Depression, major, recurrent Hypertension, essential Lipid disorder Diabetes 1.5, managed as type 2 Surgical History History of esophagogastroduodenoscopy (EGD) Hx of colonoscopy H/O knee surgery No pertinent past surgical history Family History Family History Father Stroke Diabetes mellitus Kidney disease Mother HTN (hypertension) Brother No problems noted. Sister No problems noted. Sister No problems noted. Sister No problems noted. Social History Social History Housing: Apartment Alcohol intake: current Alcohol intake frequency: 3 or more drinks per day Alcohol type: hard liquor Patient Tobacco Use Status: Former Tobacco user Cigarettes Per Day: 1 Smoked in Last 30 Days: No e-Cigarette/Vaping Use: Former Use Use of substances other than those prescribed or required for medical reasons: Yes Substance Use Type: Marijuana Substance Use Frequency: Daily Last Used Substance: Days (ago) Advance Directives: No Advance Directives Information Provided: Yes Do you have a plan to hurt others: No Plan Current occupational status: employed Cognitive needs: No Hearing needs: No Vision needs: Yes Physical Exam ED Vital Signs: Vital Signs - 24 hr 12/23/23 11:32 12/23/23 12:39 12/23/23 13:11 Temperature 97.8 F 98.1 F Pulse Rate 89 80 Respiratory Rate 20 16 16 Blood Pressure 158/96 H 156/98 H Pulse Oximetry 99 98 Oxygen Delivery Method Room Air Room Air 12/23/23 14:17 Temperature 98.1 F Pulse Rate 72 Respiratory Rate 16 Blood Pressure 154/90 H Pulse Oximetry 99 Oxygen Delivery Method Room Air BMI result Body Mass Index 35.6 Appearance: Alert. Oriented X3. No acute distress. Eyes: Pupils equal, round and reactive to light. ENT: Pharynx normal. Neck: Normal inspection. Neck supple. CVS: Normal heart rate and rhythm. Pulses normal. Respiratory: No respiratory distress. Breath sounds normal. Abdomen: Soft and moderate epigastric ttp no rebound Skin: Skin warm and dry. Normal skin color. Normal skin turgor. Extremities: No lower extremity edema. No calf ttp Neuro: Oriented X 3. No motor deficit. No sensory deficit. Course Course Course Narrative: RME, this is a rapid medical exam performed by Nba Lagunas please refer to primary provider for complete H&P- 48-year-old male presents for evaluation of nausea vomiting x5 days. The patient reports that he ran out of his insulin 5 days ago as well. His PCP sent him here to be evaluated for DKA. Plan for labs, urinalysis Reevaluation(s) Reevaluation #1: infection suspected 204pm added on zosyn Reevaluation #2: signed out to Dr. Selby pending repeat lactic acid and PO challlenge Medications Administered Discontinued Medications Generic Name Dose Route Start Last Admin Trade Name Freq PRN Reason Stop Dose Admin Hydromorphone HCl 1 mg 12/23/23 12:42 12/23/23 13:11 Hydromorphone Hcl 1 Mg/Ml Syringe IVPUSH 12/23/23 12:43 1 mg ONCE ONE Administration Protocol Lactated Ringer's 1,000 mls @ 999 mls/hr 12/23/23 13:09 12/23/23 14:18 Lr IV 12/23/23 14:09 Infused .Q1H1M ONE Infusion Piperacillin Sod/Tazobactam 50 mls @ 100 mls/hr 12/23/23 14:03 12/23/23 14:53 Sod 3.375 gm/ Sodium Chloride IV 12/23/23 14:32 Infused ONCE ONE Infusion Iohexol 85 ml 12/23/23 14:29 12/23/23 14:30 Iohexol 350 Mg/Ml 75 Ml Infus..Btl IV 12/23/23 14:30 85 ml ONCE ONE Administration Ondansetron HCl 4 mg 12/23/23 12:42 12/23/23 13:11 Ondansetron Hcl 4 Mg/2 Ml Vial IVPUSH 12/23/23 12:43 4 mg ONCE ONE Administration Potassium Chloride 40 meq 12/23/23 13:32 12/23/23 14:07 Potassium Chloride Er 20 Meq Tab.Er.Prt PO 12/23/23 13:33 40 meq ONCE ONE Administration Medical Decision Making Medical Decision Making [facility] Narrative: 48 yo male with PMH of IDDM, anxiety and depression, JEIMY, GERD, HTN, HLD, pancreatitis here with c/o n/v and epigastric pain with BS in 400s at home despite short acting insulin after ETOH use at this time labs, IVF, IV dilaudid for pain, CT scan for pancreatitis/biliary pathology. Could also be ETOH gastritis. Less suspicious for DKA. Differential Diagnosis Differential Diagnoses: The differential diagnosis associated with the presentation includes gastritis, viral syndrome, pancreatitis Admission/Observation Consideration of admission/observation: Escalation of care including admission/observation considered WBC count and lactic acidosis likely due to vomting and dehydration no acute findings on CT scan or US LFTs likely related to ETOH abuse Lab Data [facility] Lab Attestation statement: I reviewed the patient's lab results. 12/23/23 12:56 12/23/23 12:56 Labs: Lab Results 12/23/23 12/23/23 12/23/23 Range/Units 12:56 12:57 13:03 WBC 23.1 H (4.8-10.8) X10*3/uL RBC 6.04 H (4.60-5.80) X10*6/uL Hgb 18.4 H (14.0-18.0) g/dl Hct 51.1 (42.0-52.0) % MCV 84.6 (80.0-98.0) fL MCH 30.5 (27.0-33.0) pg MCHC 36.0 (31.0-36.0) g/dl RDW 13.8 (11.0-16.0) % Plt Count 285 (160-400) X10*3/uL MPV 10.2 (9.4-12.4) fL Immature Gran % (Auto) 0.6 H (0.0-0.4) % Neut % (Auto) 84.7 H (45-73) % Lymph % (Auto) 8.6 L (20-40) % [place] % (Auto) 5.8 (2-11) % Eos % (Auto) 0.0 (0-4) % Baso % (Auto) 0.3 (0-2) % Lymph # (Auto) 2.0 (1.2-4.9) X10*3/uL [place] # (Auto) 1.3 H (0.1-1.2) X10*3/uL Eos # (Auto) 0.0 (0.0-0.4) X10*3/uL Baso # (Auto) 0.1 (0.0-0.2) X10*3/uL Abs Immat Gran (auto) 0.13 H (0.00-0.03) X10*3/uL Absolute Neuts (auto) 19.5 H (2.0-8.3) x10*3/uL Absolute Nucleated RBC 0.000 (0.0-0.012) X10*3/uL Nucleated RBC % (auto) 0.0 (0.0-0.2) /100WBC VBG pH 7.47 H (7.32-7.43) VBG pCO2 33 mmHg VBG pO2 37 mmHg VBG HCO3 24 (22-26) mmol/L VBG O2 Saturation 57.0 % VBG Base Excess 2.1 mmol/L Sodium 134 L (135-145) mmol/L Potassium 3.0 L (3.3-5.1) mmol/L Chloride 98 (96-108) mmol/L Carbon Dioxide 25 (22-29) mmol/L Anion Gap 14 (12-20) BUN 13 (9-16) mg/dL Creatinine 0.88 (0.5-1.4) mg/dL Estim Creat Clear Calc 132.8 Estimated GFR > 60 POC Glucose 267 H (60-115) mg/dL Random Glucose 272 H (60-115) mg/dL Lactic Acid (0.5-2.0) mmol/L Calcium 9.9 D (8.4-10.2) mg/dL Total Bilirubin 1.9 H (0.0-1.0) mg/dL AST 64 H (5-37) U/L ALT 49 H (0-40) U/L Alkaline Phosphatase 90 (39-117) U/L Total Protein 8.6 H (6.5-8.0) g/dL Albumin 4.9 (3.5-5.0) g/dL Lipase 21 (8-78) U/L Beta-Hydroxybutyrate 0.07 (0.02-0.27) mmol/L Urine Color Yellow Urine Appearance Clear Urine pH 6.5 (5.0-9.0) Ur Specific [place] >= 1.030 H (1.005-1.025) Urine Protein Trace (Neg-Trace) mg/dL Urine Glucose (UA) >=1000 H (Negative) mg/dL Urine Ketones 15 (Negative) mg/dL Urine Blood Negative (Negative) Urine Nitrite Negative (Negative) Ur Leukocyte Esterase Negative (Negative) Urine RBC 0-2 (0-2) /HPF Urine WBC 0-5 (0-5) /HPF Ur Squamous Epith Cells 0-2 (0-2) /HPF Urine Bacteria None Seen (None Seen) Hyaline Casts 0-2 (0-2) /LPF Ethyl Alcohol < 10 mg/dL 12/22/24 Range/Units 13:32 WBC (4.8-10.8) X10*3/uL RBC (4.60-5.80) X10*6/uL Hgb (14.0-18.0) g/dl Hct (42.0-52.0) % MCV (80.0-98.0) fL MCH (27.0-33.0) pg MCHC (31.0-36.0) g/dl RDW (11.0-16.0) % Plt Count (160-400) X10*3/uL MPV (9.4-12.4) fL Immature Gran % (Auto) (0.0-0.4) % Neut % (Auto) (45-73) % Lymph % (Auto) (20-40) % [place] % (Auto) (2-11) % Eos % (Auto) (0-4) % Baso % (Auto) (0-2) % Lymph # (Auto) (1.2-4.9) X10*3/uL [place] # (Auto) (0.1-1.2) X10*3/uL Eos # (Auto) (0.0-0.4) X10*3/uL Baso # (Auto) (0.0-0.2) X10*3/uL Abs Immat Gran (auto) (0.00-0.03) X10*3/uL Absolute Neuts (auto) (2.0-8.3) x10*3/uL Absolute Nucleated RBC (0.0-0.012) X10*3/uL Nucleated RBC % (auto) (0.0-0.2) /100WBC VBG pH (7.32-7.43) VBG pCO2 mmHg VBG pO2 mmHg VBG HCO3 (22-26) mmol/L VBG O2 Saturation % VBG Base Excess mmol/L Sodium (135-145) mmol/L Potassium (3.3-5.1) mmol/L Chloride (96-108) mmol/L Carbon Dioxide (22-29) mmol/L Anion Gap (12-20) BUN (9-16) mg/dL Creatinine (0.5-1.4) mg/dL Estim Creat Clear Calc Estimated GFR POC Glucose (60-115) mg/dL Random Glucose (60-115) mg/dL Lactic Acid 2.5 H* (0.5-2.0) mmol/L Calcium (8.4-10.2) mg/dL Total Bilirubin (0.0-1.0) mg/dL AST (5-37) U/L ALT (0-40) U/L Alkaline Phosphatase (39-117) U/L Total Protein (6.5-8.0) g/dL Albumin (3.5-5.0) g/dL Lipase (8-78) U/L Beta-Hydroxybutyrate (0.02-0.27) mmol/L Urine Color Urine Appearance Urine pH (5.0-9.0) Ur Specific [place] (1.005-1.025) Urine Protein (Neg-Trace) mg/dL Urine Glucose (UA) (Negative) mg/dL Urine Ketones (Negative) mg/dL Urine Blood (Negative) Urine Nitrite (Negative) Ur Leukocyte Esterase (Negative) Urine RBC (0-2) /HPF Urine WBC (0-5) /HPF Ur Squamous Epith Cells (0-2) /HPF Urine Bacteria (None Seen) Hyaline Casts (0-2) /LPF Ethyl Alcohol mg/dL Independent Interpretation I performed an independent interpretation of an: Ultrasound (normal) and CT Scan (no acute findings) Radiology Impression Discussion of test interpretation with radiology: I have reviewed the radiologist's reading. External Record Review External record reviewed: Office record Chronic Conditions Patient?s care impacted by: Diabetes Discharge Plan Discharge Clinical Impression: Acidosis, lactic, Acute hypokalemia, Acute upper abdominal pain Nausea & vomiting Qualifiers: Vomiting type: unspecified Qualified Code(s): R11.2 - Nausea with vomiting, unspecified Elevated WBC count Qualifiers: Leukocytosis type: unspecified Qualified Code(s): D72.829 - Elevated white blood cell count, unspecified Patient Disposition: Still a Patient Instructions: Hypokalemia (ED), Acute Nausea and Vomiting (ED), Abdominal Pain (ED) Additional Instructions: no alcohol use labs are dehydrated return for worsening symptoms or concerns normal gallbladder and pancreas repeat CBC and liver function tests, BMP with PCP in 24 hours return to ED for any worsening symptoms or concerns unable to eat or drink stay hydrated, very bland diet for 48 hours would have only clears for 24 hours Prescriptions: New ondansetron 4 mg tablet,disintegrating 4 mg PO Q8H PRN (Reason: nausea and vomiting) Qty: 20 0RF No Action (DME) FreeStyle Lite Strips Strip See Rx Instructions .ROUTE .MEDSUPPLY Qty: 100 2RF Rx Instructions: Use to check blood sugars three times daily and if symptomatic with hypo/hyperglycemia (DME) lancets [FreeStyle Lancets] 28 gauge misc See Rx Instructions .ROUTE .MEDSUPPLY Qty: 100 2RF Rx Instructions: Use to check blood sugars three times daily and if symptomatic with hypo/hyperglycemia cholecalciferol (vitamin D3) 25 mcg (1,000 unit) capsule 25 mcg PO DAILY 90 Days Qty: 90 3RF pantoprazole 40 mg tablet,delayed release (DR/EC) 40 mg PO DAILY Qty: 30 2RF Rx Instructions: take one tablet half an hour before breakfast glipizide 10 mg tablet 10 mg PO BID 90 Days Qty: 180 1RF amlodipine 10 mg tablet 10 mg PO DAILY 90 Days Qty: 90 0RF (DME) pen needle, diabetic [Easy Comfort Pen [place]] 33 gauge x 5/32 needle See Rx Instructions .ROUTE .MEDSUPPLY Qty: 100 0RF Rx Instructions: Once at night dulaglutide 3 mg/0.5 mL pen injector 3 mg subcut QWEEK 30 Days Qty: 2.5 2RF nystatin 100,000 unit/gram cream 1 appl topical DAILY 30 Days Qty: 30 1RF meclizine 25 mg tablet 25 mg PO BID PRN (Reason: dizziness) Qty: 90 0RF sucralfate [Carafate] 100 mg/mL suspension 10 ml PO BID PRN (Reason: Upper abdominal pain) 30 Days Qty: 600 0RF citalopram 40 mg tablet 40 mg PO DAILY Qty: 90 0RF polyethylene glycol 3350 [Miralax] 17 gram/dose powder 17 g PO DAILY Qty: 510 2RF famotidine 40 mg tablet 40 mg PO DAILY Qty: 30 3RF Citrucel 500 mg tablet 500 mg PO DAILY Qty: 90 2RF Rx Instructions: take it with full glass of water docusate sodium 100 mg capsule 100 mg PO DAILY Qty: 30 3RF bisacodyl [Dulcolax (bisacodyl)] 5 mg tablet,delayed release (DR/EC) 10 mg PO BEDTIME Qty: 180 4RF insulin glargine U-300 conc 300 unit/mL (1.5 mL) insulin pen 50 unit subcut BID 90 Days Qty: 60 3RF insulin lispro [Humalog KwikPen Insulin] 100 unit/mL insulin pen 10 unit subcut TID Qty: 15 3RF (DME) FreeStyle Soniya 3 Randolph Misc See Rx Instructions .Route Qty: 1 0RF Rx Instructions: As directed gabapentin 300 mg capsule 300 mg PO BID Qty: 180 0RF (DME) FreeStyle Soniya 3 Sensor Device See Rx Instructions .Route Qty: 1 0RF Rx Instructions: As directed Stand Alone Forms: Work/School Release Print Language: Albanian
[2023-12-23 12:39] VITALS: BP 156/98; PULSE 80; RESP 16; TEMP 36.7; O2SAT 98
[2023-12-23 13:00] LABS: Glucose, Whole Blood 267 mg/dL (60-115)
[2023-12-23 13:03] LABS: MANUAL DIFF FLAG NO
[2023-12-23 13:04] LABS: Basophils Absolute Auto 0.1 X10*3/uL (0.0-0.2); Basophils Percent Auto 0.3 % (0-2); Hematocrit 51.1 % (42.0-52.0); Hemoglobin 18.4 g/dl (14.0-18.0); Imm Gran Abs Auto 0.13 X10*3/uL (0.00-0.03); Imm Gran Pct Auto 0.6 % (0.0-0.4); Lymphocytes Percent Auto 8.6 % (20-40); Mean Corpuscular Hemoglobin 30.5 pg (27.0-33.0); Mean Corpuscular Volume 84.6 fL (80.0-98.0); Mean Platelet Volume 10.2 fL (9.4-12.4); Monocytes Absolute Auto 1.3 X10*3/uL (0.1-1.2); Monocytes Percent Auto 5.8 % (2-11); Neutrophils Absolute Auto 19.5 x10*3/uL (2.0-8.3); Neutrophils Percent Auto 84.7 % (45-73); Platelet Count 285 X10*3/uL (160-400); Red Blood Count 6.04 X10*6/uL (4.60-5.80); Red Cell Distribution Width 13.8 % (11.0-16.0); White Blood Count 23.1 X10*3/uL (4.8-10.8)
[2023-12-23 13:05] LABS: Appearance Urine Clear; Color Urine Yellow; Glucose Urine UA >=1000 mg/dL (Negative); Leukocyte Esterase Urine Negative (Negative); Nitrite Urine Negative (Negative); PH 6.5 (5.0-9.0); Specific Gravity - Urine >= 1.030 (1.005-1.025); UMIC TRIGGER UACC YES; Urine Blood Negative (Negative); Urine Ketones 15 mg/dL (Negative); Urine Protein Trace mg/dL (Neg-Trace)
[2023-12-23 13:07] LABS: VBG Base Excess 2.1 mmol/L; VBG HCO3 24 mmol/L (22-26); VBG pCO2 33 mmHg; VBG pH 7.47 (7.32-7.43); VBG pO2 37 mmHg
[2023-12-23 13:08] LABS: Venous Blood Gas Refer to POC result
[2023-12-23 13:11] VITALS: RESP 16
[2023-12-23] MEDS: ondansetron HCL 4 MG/2 ML VIAL IVPUSH (13:11)
[2023-12-23] MEDS: HYDROmorphone HCl 1 MG/ML SYRINGE IVPUSH (13:11)
[2023-12-23] MEDS: Lactated Ringers 1,000 ML 999 ML IV (13:17)
[2023-12-23 13:26] LABS: Ethanol < 10 mg/dL
[2023-12-23 13:26] LABS: Alanine Aminotransferase 49 U/L (0-40); Albumin Level 4.9 g/dL (3.5-5.0); Alkaline Phosphatase 90 U/L (39-117); Anion Gap 14 (12-20); Aspartate Amino Transferase 64 U/L (5-37); Bilirubin Total 1.9 mg/dL (0.0-1.0); Blood Urea Nitrogen 13 mg/dL (9-16); Calcium 9.9 mg/dL (8.4-10.2); Carbon Dioxide 25 mmol/L (22-29); Chloride 98 mmol/L (96-108); Creatinine Clr Calc Pharmacy 132.8; Estimated Glomerular Filt Rate > 60; Glucose Random 272 mg/dL (60-115); Lipase 21 U/L (8-78); Sodium 134 mmol/L (135-145); Total Protein 8.6 g/dL (6.5-8.0)
[2023-12-23 13:37] LABS: Bacteria Urine None Seen (None Seen); Hyaline Casts Urine 0-2 /LPF (0-2); RBC Urine 0-2 /HPF (0-2); Squamous Epithelial Cell Urine 0-2 /HPF (0-2); WBC Urine 0-5 /HPF (0-5)
[2023-12-23 13:42] LABS: Beta-Hydroxybutyrate 0.07 mmol/L (0.02-0.27)
[2023-12-23 14:02] LABS: Lactic Acid 2.5 mmol/L (0.5-2.0)
[2023-12-23] MEDS: Potassium Chloride ER 20 MEQ TAB.ER.PRT 40 MEQ PO (14:07)
[2023-12-23 14:17] VITALS: BP 154/90; PULSE 72; RESP 16; TEMP 36.7; O2SAT 99
[2023-12-23] MEDS: Piperacillin Sodium/Tazobactam 3.375 GM in 0.9 % Sodium Chloride 50 ML IV (14:23)
[2023-12-23] MEDS: iohexoL 350 MG/ML 75 ML INFUS..BTL 85 ML IV (14:30)
--- NOTE | 2023-12-23 15:06 | PC.NURSE ---
Pt comes to ED today with c/o 8/10 lower abd pain/pressure x4 days. Pt reports he is diabetic and has been without insulin. States he went out with friends on Wednesday, drank a significant amount of dark liquor and has had BS in the 400s all week. States he called his PCP who was unable to supply him with insulin. Pt reports pain is cramping/pressure in nature and reports a bout of diarrhea today.
[2023-12-23 15:36] LABS: Reflex Lactate? Lactic Acid Added
[2023-12-23 16:08] VITALS: BP 138/78; PULSE 78; RESP 16; TEMP 36.7; O2SAT 98
[2023-12-23] MEDS: Lidocaine HCl Viscous 2 % 15 ML SOLUTION MUCOUS MEM (16:29)
[2023-12-23] MEDS: Magnesium Hydrox/Alum Hydrox 30 ML ORAL.SUSP 15 ML PO (16:29)
--- NOTE | 2023-12-23 16:29 | PC.NURSE ---
Per Dr. Flanagan, Pt is to have PO challenge. Pt given donn ladarius and reports immediate GI upset. Dr. Flanagan to enter additional orders. Will re-attempt PO challenge after new medication.
--- NOTE | 2023-12-23 17:20 | PC.NURSE ---
Second attempt for PO challenge with Pt. Pt given water and apple juice. States he doesn't feel ready for carbonated liquids.
[2023-12-23 17:48] VITALS: BP 138/78; PULSE 78; RESP 16; TEMP 36.7; O2SAT 98
== END 2023-12-23 17:50 | disposition home or self-care (01) ==
PROVIDERS: Emergency Medicine; Physician Assistant; Emergency Provider Emergency Medicine; PCP Internal Medicine
DX: E87.20 Acidosis, unspecified (principal); E87.6 Hypokalemia; R10.10 Upper abdominal pain, unspecified; R11.2 Nausea with vomiting, unspecified; D72.829 Elevated white blood cell count, unspecified; E11.9 Type 2 diabetes mellitus without complications; Z79.4 Long term (current) use of insulin; Z79.899 Other long term (current) drug therapy; Z51.81 Encounter for therapeutic drug level monitoring
CPT/HCPCS: 36415; 74177; 76705; 80053; 80307; 81001; 82010; 82803; 82947; 83605; 83690; 85025; 87040; 96361; 96365; 96375; 99284; 99285; J1171; J2405; J2543; J7120; Q9967

== ENCOUNTER 2024-05-16 12:55 | Outpatient (AMB) | payer OTHER, SELFPAY ==
[2024-05-16 12:59] VITALS: BP 130/84; PULSE 76; TEMP 36.7; O2SAT 98; BMI 39.2
--- NOTE | 2024-05-16 12:59 | A.OFFPC_ITS ---
Vital Signs 05/16/24 12:59 Height 5 ft 11 in Weight 281 lb 2 oz BMI 39.2 BP 130/84 Blood Pressure Location Lt brachial Position Sitting Pulse 76 Pulse Source Pulse Oximeter Temp 98.1 F Temp Source Oral Pulse Oximetry (%) 98 Intake Visit Reasons: ED F/U Allergies No Known Allergies Allergy (Verified 05/16/24 13:00) Medication List - Last Reconciled 05/16/24 by Yadira Wilder MD amlodipine 10 mg PO DAILY 90 days bisacodyl (Dulcolax (bisacodyl)) 10 mg (2 x 5 mg) PO BEDTIME blood sugar diagnostic (FreeStyle Lite Strips) Use to check blood sugars three times daily and if symptomatic with hypo/hyperglycemia cholecalciferol (vitamin D3) 25 mcg PO DAILY 90 days citalopram 40 mg PO DAILY docusate sodium 100 mg PO DAILY dulaglutide 3 mg (0.5 mL) subcut QWEEK 30 days famotidine 40 mg PO DAILY FreeStyle Soniya 3 [place] (blood-glucose meter,continuous) As directed NS FreeStyle Soniya 3 Sensor (blood-glucose sensor) As directed NS gabapentin 300 mg PO BID glipizide 10 mg PO BID 90 days insulin glargine U-300 conc 50 units (0.1667 mL) subcut BID 90 days insulin lispro (Humalog KwikPen (U-100) Insulin) 10 units (0.1 mL) subcut TID lancets (FreeStyle Lancets) Use to check blood sugars three times daily and if symptomatic with hypo/hyperglycemia meclizine 25 mg PO BID PRN methylcellulose (laxative) (Citrucel) 500 mg PO DAILY nystatin 1 appl topical DAILY 30 days ondansetron 4 mg PO Q8H PRN pantoprazole 40 mg PO QAM pen needle, diabetic (Easy Comfort Pen Hubert) Once at night polyethylene glycol 3350 (Miralax) 17 grams PO DAILY sucralfate (Carafate) 10 mL PO BID PRN 30 days Tobacco use date assessed: 05/16/24 Dental Screening Dental Screen Date: 05/16/24 Did you have a dental visit in the last 12 months?: Yes Did you have a dental problem in the last 6 months where you did not have access to dental care?: No Was dental information given to patient?: Patient has dentist HPI ED F/U HPI Details History - The patient is a 49-year-old male pres enting with follow-up for abdominal aortic aneurysm. Patient presented to [facility] end of April secondary to chest pain Ended up having cardiac imaging which showed aortic aneurysm I do not have any paperwork from [facility] in spite of requesting it for the past 1 week We will continue to request the paperwork and imaging At this time patient is stable he does not have any cardiac symptoms I have placed a referral for him to be evaluated by Cardiology . - The patient has experienced a notable weight gain, attributed partially to lifestyle changes. - Weight increased from 255 pounds in [place] to 281 pounds at the latest check. - Has diabetes with a current HbA1c of 8 .4, previously noted as 8.8 in September. Managed by endocrinology [facility] - Reports itchy and sometimes red skin o n the forehead, possibly related to current medications or uncontrolled blood sugar. I have sent clobetasol cream that he may used at night until the rash is resolved - patient is also established with Gastr oenterology [facility] Medication through PCP office are Amlodipine 10 mg for hypertension Vitamin-D Citalopram 40 mg Gabapentin 300 mg b.i.d. Meclizine as needed Rest of the medications are either from endocrinology or Gastroenterology Problem List - Abdominal Aortic Aneurysm - Back Pain chronic - Swelling in Lower Extremities resolved - Diabetes Mellitus with Hyperglycemia - Itchy Skin of Forehead - depression - chronic GERD - obesity - Dizziness Diagnostic results - Tests and Diagnostics: - Nuclear CT sc an performed for the assessment of an abdominal aortic aneurysm. At [facility] reports are requested - Historical labs from November indicated normal kidney function and no gallstones. - Previous abdominal CT scan showed norm al kidney structures; abdominal aorta noted as healthy. Patient Instructions - Avoid strenuous activities such as run mel or jogging until further assessment by strategic accounts manager - Begin taking a daily baby aspirin to a id in heart protection. - Monitor for persistent or worsening sy mptoms and seek care as necessary. - Use prescribed cream on the forehead n ightly for a couple of weeks for itching. - continue other medications Review of Systems General: No fever no chills neurological: No headaches no dizziness ear nose throat: No sore throat no hearing difficulty no ear pain cardiovascular: No syncope, no chest pain, no palpitations gastrointestinal: No nausea vomiting or diarrhea endocrine: No polyuria polydipsia no heat intolerance genitourinary: No dysuria skin: No new complaints Physical Exam general: No acute distress HEENT: No acute findings, noted itchiness on forehead neck: Supple respiratory system: Able to talk in full sentences, no audible wheeze no stridor cardiovascular: S1-S2, regular in rate and rhythm gastrointestinal: No abdominal pain extremities: No new findings, history of leg swelling, no swelling at this time [employer]: Alert awake oriented x3 motor sensory intact skin: Normal turgor, noted erythema forehead PFSH Medical History Paresthesias Depression Anxiety Neck pain Hypersomnia Snoring Obstructive sleep apnea Herpes simplex type 1 antibody positive Lumbar pain Hip pain, right Microalbuminuria Diabetic nephropathy Restless leg syndrome Vitamin D deficiency Chronic GERD Depression, major, recurrent Hypertension, essential Lipid disorder Diabetes 1.5, managed as type 2 Surgical History History of esophagogastroduodenoscopy (EGD) Hx of colonoscopy H/O knee surgery No pertinent past surgical history Family History Father Stroke Diabetes mellitus Kidney disease Mother HTN (hypertension) Brother No problems noted. Sister No problems noted. Sister No problems noted. Sister No problems noted. Social History Housing: Apartment Alcohol intake: current Alcohol intake frequency: 3 or more drinks per day Alcohol type: hard liquor Patient Tobacco Use Status: Former Tobacco user Cigarettes Per Day: 1 e-Cigarette/Vaping Use: Former Use Substance Use Type: Marijuana Current occupational status: employed Cognitive needs: No Hearing needs: No Vision needs: Yes Questionnaire PHQ-9 Over the last 2 weeks, how often have you been bothered by any of the following problems? 1. Little interest or pleasure in doing things: several days 2. Feeling down, depressed, or hopeless: several days 3. Trouble falling or staying asleep, or sleeping too much: nearly every day 4. Feeling tired or having little energy: nearly every day 5. Poor appetite or overeating: not at all 6. Feeling bad about yourself - or that you are a failure or have let yourself or your family down: not at all 7. Trouble concentrating on things, such as reading the newspaper or watching television: not at all 8. Moving or speaking so slowly that other people could have noticed. Or the opposite - being so fidgety or restless that you have been moving around a lot more than usual: not at all 9. Thoughts that you would be better off or of hurting yourself in some way: not at all Total score: 8 Depression Screening Interpretation: Negative Depression Screening Done: Yes 55817 - PHQ-9 Billing: Yes Source: Developed by Drs. Bakari Escobedo, Shireen Riley, Luis Leo and colleagues, with an educational janay from [employer]. Thrive Questionnaire Date Thrive assessed: 05/16/24 AUDIT C Alcohol Use Questionnaire (AUDIT-C) 1. How often do you have a drink containing alcohol?: 2-3 times a week 2. How many drinks containing alcohol do you have on a typical day when you are drinking?: 1 or 2 3. How often do you have six or more drinks on one occasion?: Never Total Score: 3 Score Reviewed/Action Taken: Yes ELIZABETH-7 AMB Questionnaire ELIZABETH-7 Date ELIZABETH - 7 assessed: 05/16/24 Feeling nervous, anxious, or on edge: 1 = Several days Not being able to stop or control worryin = Not at all Worrying too much about different things: 2 = More than half the days Trouble relaxin = Several days Being so restless that it is hard to sit still: 0 = Not at all Becoming easily annoyed or irritable: 0 = Not at all Feeling afraid as if something awful might happen: 0 = Not at all Total ELIZABETH-7 score (0-4 normal; 5-9 mild; 10-14 moderate; 15-21 severe): 4 Source: Developed by Drs. Bakari Escobedo, Luis Garza and colleagues, with an educational janay from [employer]. ELIZABETH-7 Assessment Billing ELIZABETH-7 Assessment Tool: ELIZABETH-7 Assessment 79962 Physical exam (Primary Care) Vital Signs: Last Vital Signs Temp 98.1 F 05/16/24 12:59 Pulse 76 05/16/24 12:59 BP 130/84 05/16/24 12:59 Pulse Ox 98 05/16/24 12:59 BMI result Body Mass Index 39.2 Tobacco/Smoking Status: Tobacco use Status Tobacco use date assessed 05/16/24 05/16/24 13:01 Patient Tobacco Use Status Former Tobacco user 05/16/24 13:01 e-Cigarette/Vaping Use Former Use 05/16/24 13:01 PHQ-9: PHQ-9 Score PHQ-9: Total score 8 05/16/24 13:46 Depression Screening Interpretation: Negative Thrive Assessment: Date of Thrive Assessment Date Thrive assessed 05/16/24 05/16/24 13:01 Coding Level of Care Code Est Pt Level 5 (80389) Diagnoses Aneurysm of ascending aorta without rupture I71.21 Aortic location: thoracic aorta Presence of rupture: without rupture Thoracic aorta location: ascending aorta Hospital discharge follow-up Z09 Rash R21 Hypertension, essential I10 Lipid disorder E78.9 Diabetes 1.5, managed as type 2 E13.9 Recurrent major depressive disorder, in partial remission F33.41 Active/Remission status: in partial remission Chronic GERD K21.9 Vitamin D deficiency E55.9 Diabetic nephropathy associated with type 2 diabetes mellitus E11.21 Diabetes mellitus type: type 2 Restless leg syndrome G25.81 Microalbuminuria R80.9 Class 2 severe obesity due to excess calories with serious comorbidity and body mass index (BMI) of 39.0 to 39.9 in adult E66.812; E66.01; Z68.39 Body mass index: BMI 39.0-39.9 Obesity classification: adult class 2 (BMI 35 - 39.9) Serious obesity comorbidity presence: with serious comorbidity Diabetic polyneuropathy associated with type 2 diabetes mellitus E11.42 Diabetes mellitus complication detail: diabetic polyneuropathy Diabetes mellitus type: type 2 Additional Codes ELIZABETH-7 Assessment Billing - ELIZABETH-7 Assessment Tool: ELIZABETH-7 Assessment [id number] ([id number]) PHQ-9 - 29027 - PHQ-9 Billing: Yes ([id number]) Time Spent (min) 40 Comment [id number] with the patient, coordination of care, called [facility] waited Assessment & Plan Assessment & Plan (1) Aortic aneurysm: Code(s): I71.9 - Aortic aneurysm of unspecified site, without rupture Category: Medical Qualifiers: Aortic location: thoracic aorta Presence of rupture: without rupture Thoracic aorta location: ascending aorta Qualified Code(s): I71.21 - Aneurysm of the ascending aorta, without rupture (2) Hospital discharge follow-up: Code(s): Z09 - Encounter for follow-up examination after completed treatment for conditions other than malignant neoplasm Category: Medical (3) Rash: Code(s): R21 - Rash and other nonspecific skin eruption Category: Medical (4) Hypertension, essential: Code(s): I10 - Essential (primary) hypertension Category: Medical (5) Lipid disorder: Code(s): E78.9 - Disorder of lipoprotein metabolism, unspecified Category: Medical (6) Diabetes 1.5, managed as type 2: Code(s): E13.9 - Other specified diabetes mellitus without complications Category: Medical (7) Depression, major, recurrent: Code(s): F33.9 - Major depressive disorder, recurrent, unspecified Category: Medical Qualifiers: Active/Remission status: in partial remission Qualified Code(s): F33.41 - Major depressive disorder, recurrent, in partial remission (8) Chronic GERD: Code(s): K21.9 - Gastro-esophageal reflux disease without esophagitis Category: Medical (9) Vitamin D deficiency: Code(s): E55.9 - Vitamin D deficiency, unspecified Category: Medical (10) Diabetic nephropathy: Code(s): E11.21 - Type 2 diabetes mellitus with diabetic nephropathy Category: Medical Qualifiers: Diabetes mellitus type: type 2 Qualified Code(s): E11.21 - Type 2 diabetes mellitus with diabetic nephropathy (11) Restless leg syndrome: Code(s): G25.81 - Restless legs syndrome Category: Medical (12) Microalbuminuria: Code(s): R80.9 - Proteinuria, unspecified Category: Medical (13) Obesity due to excess calories: Code(s): E66.09 - Other obesity due to excess calories Category: Medical Qualifiers: Body mass index: BMI 39.0-39.9 Obesity classification: adult class 2 (BMI 35 - 39.9) Serious obesity comorbidity presence: with serious comorbidity Qualified Code(s): E66.812 - Obesity, class 2; E66.01 - Morbid (severe) obesity due to excess calories; Z68.39 - Body mass index [BMI] 39.0-39.9, adult (14) Diabetic neuropathy: Code(s): E11.40 - Type 2 diabetes mellitus with diabetic neuropathy, unspecified Category: Medical Qualifiers: Diabetes mellitus complication detail: diabetic polyneuropathy Diabetes mellitus type: type 2 Qualified Code(s): E11.42 - Type 2 diabetes mellitus with diabetic polyneuropathy Plan History - The patient is a 49-year-old male presenting with follow-up for abdominal aortic aneurysm. Patient presented to [facility] end of April secondary to chest pain Ended up having cardiac imaging which showed aortic aneurysm I do not have any paperwork from [facility] in spite of requesting it for the past 1 week We will continue to request the paperwork and imaging At this time patient is stable he does not have any cardiac symptoms I have placed a referral for him to be evaluated by Cardiology . - The patient has experienced a notable weight gain, attributed partially to lifestyle changes. - Weight increased from 255 pounds in November to 281 pounds at the latest check. - Has diabetes with a current HbA1c of 8.4, previously noted as 8.8 in September. Managed by endocrinology [facility] - Reports itchy and sometimes red skin on the forehead, possibly related to current medications or uncontrolled blood sugar. I have sent clobetasol cream that he may used at night until the rash is resolved - patient is also established with Gastroenterology [facility] Medication through PCP office are Amlodipine 10 mg for hypertension Vitamin-D Citalopram 40 mg Gabapentin 300 mg b.i.d. Meclizine as needed Rest of the medications are either from endocrinology or Gastroenterology Problem List - Abdominal Aortic Aneurysm - Back Pain chronic - Swelling in Lower Extremities resolved - Diabetes Mellitus with Hyperglycemia - Itchy Skin of Forehead - depression - chronic GERD - obesity Dizziness Diagnostic results - Tests and Diagnostics: - Nuclear CT scan performed for the assessment of an abdominal aortic aneurysm. At [facility] reports are requested - Historical labs from November indicated normal kidney function and no gallstones. - Previous abdominal CT scan showed normal kidney structures; abdominal aorta noted as healthy. Patient Instructions - Avoid strenuous activities such as running or jogging until further assessment by strategic accounts manager - Begin taking a daily baby aspirin to aid in heart protection. - Monitor for persistent or worsening symptoms and seek care as necessary. - Use prescribed cream on the forehead nightly for a couple of weeks for itching. - continue other medications Orders: Referrals Cardiology Referral I71.9 - Aortic aneurysm of unspecified site, without rupture Medications: New clobetasol 0.05% 1 appl topical BEDTIME 60 grams 0RF aspirin 81 mg PO DAILY 90 tabs 0RF
--- OUTSIDE RECORDS SUMMARY | 2024-05-16 15:08 | XMS_ITS | Clinical Summary ---
Author Organization [facility], Address [address] [place] [address] [place] [address] Phone Care Team Providers Care Retail Store Manager Name Role Phone Yadira Wilder MD Primary Care Provider [phone] Allergies No known active allergies Medications amLODIPine (NORVASC) 10 MG tablet Take 10 mg by mouth 1 (one) time each day Active Cholecalciferol (Vitamin D3) 25 MCG tablet Take by mouth Active gabapentin (NEURONTIN) 100 MG capsule Take 100 mg by mouth 3 (three) times a day Active glipiZIDE (GLUCOTROL) 10 MG tablet Take 10 mg by mouth 2 (two) times a day before meals Active omeprazole (PriLOSEC) [address] capsule Take 20 mg by mouth 1 (one) time each day Do not crush or chew. Active Omeprazole 20 MG Tablet Delayed Release Dispersible Take 40 mg by mouth 1 (one) time each day Do not crush or chew. Active simvastatin (ZOCOR) 40 MG tablet Take 40 mg by mouth every night Active Active Problems Problem Noted Date Diagnosed Date Microalbuminuria 01/30/2020 Social History Tobacco Use Types Packs/Day Years Used Date Smoking Tobacco: Some Days Sex and Gender Information Value Date Recorded Sex Assigned at Not on file Legal Sex Male 11:00 AM EST Gender Identity Not on file Sexual Orientation Not on file Plan of Treatment Health Maintenance Due Date Last Done Comments Pneumococcal Vaccine: Pediat rics (0 to 5 Years) and At-Risk Patients (6 to 64 Years) (1 of 2 - PCV) 1981 Hepatitis B Vaccine (1 of 3 - 19+ 3-dose series) 04/22 Influenza Vaccine (#1) 2023 Colorectal Cancer Screening: Annual FOBT 2024 Colorectal Cancer Screening: Colonoscopy 2024 Colorectal Cancer Screening: Sigmoidoscopy 2024 Insurance [facility] Care Teams Retail Store Manager Relationship Specialty Start Date End Date Yadira Wilder MD [facility] [place], [place] [id number] PCP - General Internal Medicine 01/10/20
--- OUTSIDE RECORDS SUMMARY | 2024-05-16 15:09 | XMS_ITS | Clinical Summary ---
Author Organization [facility] Address [address] [place] [address] Phone Care Team Providers Care Assistant Chief Train Dispatcher Name Role Phone Yadira Wilder MD Primary Care Provider [phone] Allergies No known active allergies Medications amitriptyline (ELAVIL) 25 mg tablet Take 1 tablet (25 mg total) by mouth at bedtime. Active Active Problems Problem Noted Date Diagnosed Date Headache 04/09/2010 Encounters Date Type Department Care Team Description 04/10/2024 11:55 PM EST - 04/11/2024 2:50 AM EST Emergency [facility] Emergency [address] [place] [address] Chest pain, unspecified type (Primary Dx); Edema, unspecified type; Aneurysm of ascending aorta without rupture (CMS/HCC) Discharge Disposition: Home or Self Care from Last 3 Months Immunizations Name Administration Dates Next Due Tdap Tetanus diptheria acell ular pertussis (Boostrix; Adacel) 7yo and older 06/24/2010 Surgical History Surgery Date Site/Laterality Comments KNEE SURGERY PROCEDURE: HISTORICAL KNEE SURGERY; COMMENT: meniscal repair , arthroscopic, Dr. Clements Family History Relation Name Status Comments Father Alive [place] in late 30's , dm, CHF Mother Alive DM, brain aneur ysm Social History Tobacco Use Types Packs/Day Years Used Date Smoking Tobacco: Never Smokeless Tobacco: Never Alcohol Use Standard Drinks/Week Comments Yes 0 (1 standard drink = 0.6 oz pur e alcohol) Sex and Gender Information Value Date Recorded Sex Assigned at Not on file Legal Sex Male 12:23 AM EST Gender Identity Not on file Sexual Orientation Not on file Obstetrics History Last Filed Vital Signs Vital Sign Reading Time Taken Comments Blood Pressure 149/89 04/10/2024 7:44 PM EST Pulse 81 04/10/2024 7:44 PM EST Temperature 36.8 ??C (98.3 ??F) 04/10/2024 7:44 PM ES T Respiratory Rate 18 04/10/2024 7:44 PM EST Oxygen Saturation 98% 04/11/2024 12:29 AM EST Inhaled Oxygen Concentration - - Weight 111 kg (245 lb) 04/10/2024 7:44 PM EST Height 180.3 cm (5' 11 ) 04/10/2024 7:44 PM EST Body Mass Index 34.17 04/10/2024 7:44 PM EST Plan of Treatment Upcoming Encounters Date Type Department Care Team (Late st Contact Info) Description 06/19/2024 10:00 AM EDT Consult Vascular Surgery - [place] [address] [place] [phone] Feliciano Lara MD [address] [place] [address] Health Maintenance Due Date Last Done Comments Diabetes: Annual Foot Exam 1985 Diabetes: Annual Retina Eye Exam 1985 Hepatitis B Vaccines (1 of 3 - 19+ 3-dose series) 1994 DTaP,Tdap,and Td Vaccines (3 - Td or Tdap) 08/20/2021 08/21/2011, 06/24/2010 Cholesterol Screening (Lipid Panel) 02/01/2022 04/10/2010 Colorectal Cancer Screening: Colonoscopy 02/01/2022 Depression Screening 02/01/2022 Social Influencers of Health Screening 02/01/2022 COVID-19 Vaccine ( season) 2023 07/05/2020, 06/14/2020 Diabetes: Annual Urine Albumin-Creatinine Ratio (uACR) 04/11/2024 Diabetes: Blood Sugar Control Test (HGBA1C) 04/11/2024 Diabetes: Annual GFR (Glomerular Filtration Rate) 04/10/2025 04/10/2024, 04/10/2010 Hypertension/CHF/CAD Annual BMP Blood Test 04/10/2025 04/10/2024, 04/10/2010 HIV Screening Completed 06/24/2010 Hepatitis C Screening Completed 06/24/2010 Pneumococcal Vaccine: Pediatrics (0 to 5 Years) and At-Risk Patients (6 to 64 Years) Aged Out 04/23/2014 No longer eligible based on patient's age to complete this topic Influenza Vaccine Completed 12/14/2023, , 01/31/2018, Additional history exists HIB Vaccines Aged Out No longer eligi ble based on patient's age to complete this topic HPV Vaccines Aged Out No longer eligi ble based on patient's age to complete this topic Hepatitis A Vaccines Aged Out No long er eligible based on patient's age to complete this topic IPV Vaccines Aged Out No longer eligi ble based on patient's age to complete this topic MMR Vaccines Aged Out No longer eligi ble based on patient's age to complete this topic Meningococcal ACWY Vaccine Aged Out N o longer eligible based on patient's age to complete this topic Meningococcal B Vacine Aged Out No lo nger eligible based on patient's age to complete this topic RSV Immunization Patients Under 20 months Aged Out No longer eligible based on patient's age to complete this topic Varicella Vaccines Aged Out No longer eligible based on patient's age to complete this topic Procedures Procedure Name Priority Date/Time Associated Diagnosis Comments CT ANGIO CHEST WO AND/OR W CONTRAST STAT 04/11/2024 2:07 AM EST Chest pain, unspecified type VAS US DUPLEX LOWER EXT VENOUS LEFT Routine 04/11/2024 1:56 AM EST Edema, unspecified type ECG ANNOTATED 04/11/2024 ECG ANNOTATED 04/11/2024 TROPONIN I HIGH SENSITIVITY STAT 04/10/2024 9:07 PM EST ECG 12-LEAD STAT 04/10/2024 9:05 PM EST XR CHEST 2 VIEWS STAT 04/10/2024 8:35 PM EST CBC WITH AUTO DIFFERENTIAL STAT 04/10/2024 8:19 PM EST B-TYPE NATRIURETIC PEPTIDE STAT 04/10/2024 8:19 PM EST MAGNESIUM STAT 04/10/2024 8:19 PM EST LIPASE STAT 04/10/2024 8:19 PM EST COMPREHENSIVE METABOLIC PANEL STAT 04/10/2024 8:19 PM EST CBC AND DIFFERENTIAL STAT 04/10/2024 8:19 PM EST TROPONIN I HIGH SENSITIVITY STAT 04/10/2024 8:19 PM EST ECG 12-LEAD STAT 04/10/2024 7:43 PM EST HEPATITIS C SCREENING Routine 06/24/2010 HIV SCREENING Routine 06/24/2010 LIPID PANEL Routine 04/10/2010 from Last 3 Months or Most Recently Relevant to Health Maintenance Results * CT Angio Chest wo and/or w Contrast (04/11/2024 2:07 AM EST) Anatomical Region Laterality Modality Body Computed Tomogra phy 04/11/2024 2:25 AM EST Impressions 04/11/2024 2:25 AM EST No pulmonary emboli. 4.5 cm ascending thoracic aortic aneurysm. No focal infiltrates or masses. No edema. Fatty liver. This document has been electronically signed by: Nida Avery MD on 04/11/2024 02:25:57 Narrative 04/11/2024 2:25 AM EST INDICATION: PE suspected, high prob CT angiography chest with contrast. 3D Postprocessing. Comparison: None Findings: No pulmonary embolism. 4.5 cm ascending thoracic aortic aneurysm. No cardiomegaly. No focal infiltrates or masses. No edema. No pneumothorax No significant pleural effusion. No adenopathy. No acute upper abdominal pathology. Fatty liver. No acute chest wall pathology. No acute fracture or dislocation. Degenerative changes. Procedure Note Nida Avery MD - 04/11/2024 INDICATION: PE suspected, high prob CT angiography chest with contrast. 3D Postprocessing. Comparison: None Findings: No pulmonary embolism. 4.5 cm ascending thoracic aortic aneurysm. No cardiomegaly. No focal infiltrates or masses. No edema. No pneumothorax No significant pleural effusion. No adenopathy. No acute upper abdominal pathology. Fatty liver. No acute chest wall pathology. No acute fracture or dislocation. Degenerative changes. IMPRESSION: No pulmonary emboli. 4.5 cm ascending thoracic aortic aneurysm. No focal infiltrates or masses. No edema. Fatty liver. This document has been electronically signed by: Nida Avery MD on 04/11/2024 02:25:57 us Sari MARTINEZ IMG CT PROCEDURES Final Re sult * Vascular US duplex lower extremity venous left (04/11/2024 1:56 AM EST) Anatomical Region Laterality Modality Vascular, Abdomen Ultrasound 04/11/2024 5:59 AM EST Impressions 04/11/2024 5:59 AM EST No deep vein thrombosis identified in the left lower extremity veins -------- FINAL REPORT -------- Dictated By: Darleen Matamoros Dictated Date: 04/11/2024 05:59 ET Assigned Physician: Darleen Matamoros Reviewed and Electronically Signed By: Darleen Matamoros Signed Date: 04/11/2024 05:59 ET Workstation ID: [id number] Transcribed By: Self Edit Transcribed Date: 04/11/2024 05:59 ET Narrative 04/11/2024 5:59 AM EST INDICATION: edema COMPARISON: July 2019 TECHNIQUE: Ultrasound of the ??left lower extremity veins is performed using color-flow Doppler, graded compression with B mode Doppler with spectral analysis FINDINGS: The common femoral, superficial femoral and popliteal veins compress normally throughout their length. Normal response to distal augmentation is seen with calf compression. Included calf vessels are patent on color Doppler. Procedure Note Darleen Matamoros MD - 04/11/2024 INDICATION: edema COMPARISON: July 2019 TECHNIQUE: Ultrasound of the left lower extremity veins is performedusing color- flow Doppler, graded compression with B mode Doppler withspectral analysis FINDINGS: The common femoral, superficial femoral and popliteal veinscompress normally throughout their length. Normal response to distalaugmentation is seen with calf compression. Included calf vessels arepatent on color Doppler. IMPRESSION: No deep vein thrombosis identified in the left lower extremity veins -------- FINAL REPORT -------- Dictated By: Darleen Matamoros Dictated Date: 04/11/2024 05:59 ET Assigned Physician: Darleen Matamoros Reviewed and Electronically Signed By: Darleen Matamoros Signed Date: 04/11/2024 05:59 ET Workstation ID: [id number] Transcribed By: Self Edit Transcribed Date: 04/11/2024 05:59 ET us Sari MARTINEZ CV VASCULAR PROCEDURES Fin al Result * ECG-Annotated (04/11/2024) Only the most recent of2 resultswithin the time period is included. us Provider Onbase MD ECG ORDERABLES Final Result * Troponin I high sensitivity (04/10/2024 9:07 PM EST) Only the most recent of2 resultswithin the time period is included. High Sensitivity Troponin I 5 <=79 ng/L LAB CHEMISTRY METHOD 04/10/2024 10:07 PM EST [facility] Blood Venous blood specimen / Unknown Venipuncture / Unknown 04/10/2024 9:07 PM EST 04/10/2024 9:37 PM EST Narrative [facility] - 04/10/2024 10:07 PM EST High levels of biotin in samples may falsely decrease hsTroponin values. ??Use caution when interpreting hsTroponin results in patients taking biotin who exhibit renal impairment (eGFR <60) or in patients taking more than 20 mg/day of biotin. us Jose Maria Calderon DO LAB BLOOD ORDERABLES Final Res ult Performing Organization Address [facility] de Phone Number [facility] [address] [place] [address], * ECG 12 lead (04/10/2024 9:05 PM EST) Only the most recent of2 resultswithin the time period is included. Ventricular Rate ECG 74 BPM GEMUSE Atrial Rate 74 BPM GEMUSE P-R Interval 132 ms GEMUSE QRS Duration 100 ms GEMUSE Q-T Interval 414 ms GEMUSE QTc 459 ms GEMUSE P Wave [place] 1 degrees GEMUSE R [place] -2 degrees GEMUSE T [place] 1 degrees GEMUSE ECG Interpretation Normal sinus rhythm Moderate voltage criteria for LVH, may be normal variant Borderline ECG When compared with ECG of 10-APR-2024 19:43, (unconfirmed) No significant change was found Confirmed by Sharron AUGUSTE YUFENG ([id number]) on 04/11/2024 3:01:08 PM GEMUSE 04/10/2024 9:05 PM EST 04/11/2024 3:01 PM EST us Jose Maria P Kvng DO ECG ORDERABLES Final Result Performing Organization Address [facility] de Phone Number GEMUSE * XR Chest 2 Views (04/10/2024 8:35 PM EST) Anatomical Region Laterality Modality Body Radiographic Saba ging 04/11/2024 8:49 AM EST Impressions 04/11/2024 8:50 AM EST Normal examination. No change since the prior study performed 09/04/2021. Code 81433 -------- FINAL REPORT -------- Dictated By: Emmanuel Singh Dictated Date: 04/11/2024 08:49 ET Assigned Physician: Emmanuel Singh Reviewed and Electronically Signed By: Emmanuel Singh Signed Date: 04/11/2024 08:50 ET Workstation ID: [id number] Transcribed By: Self Edit Transcribed Date: 04/11/2024 08:49 ET Narrative 04/11/2024 8:50 AM EST HISTORY: The patient is a 40-year-old male with chest pain. FINDINGS: PA and lateral radiographs of the chest demonstrate normal appearance of the bony structures. The cardiac and mediastinal contours are within normal limits. The lungs and costophrenic angles are clear. Procedure Note Emmanuel Singh MD - 04/11/2024 HISTORY: The patient is a 40-year-old male with chest pain. FINDINGS: PA and lateral radiographs of the chest demonstrate normalappearance of the bony structures. The cardiac and mediastinal contoursare within normal limits. The lungs and costophrenic angles are clear. IMPRESSION: Normal examination. No change since the prior study performed 09/04/2021. Code 65747 -------- FINAL REPORT -------- Dictated By: Emmanuel Singh Dictated Date: 04/11/2024 08:49 ET Assigned Physician: Emmanuel Singh Reviewed and Electronically Signed By: Emmanuel Singh Signed Date: 04/11/2024 08:50 ET Workstation ID: [id number] Transcribed By: Self Edit Transcribed Date: 04/11/2024 08:49 ET Jose Maria Calderon DO IMG XR PROCEDURES Final Result * (ABNORMAL) CBC auto differential (04/10/2024 8:19 PM EST) WBC 12.4(H) 4.8 - 10.8 K/mcL LAB HEMETOLOGY METHOD 04/10/2024 8:35 PM [facility] RBC 4.50 4.50 - 5.50 M/mcL LAB HEMETOLOGY METHOD 04/10/2024 8:35 PM [facility] Hemoglobin 13.6 13.5 - 17.5 g/dL LAB HEMETOLOGY METHOD 04/10/2024 8:35 PM [facility] Hematocrit 39.7(L) 42.0 - 54.0 % LAB HEMETOLOGY METHOD 04/10/2024 8:35 PM [facility] MCV 88.8 79.0 - 98.0 FL LAB HEMETOLOGY METHOD 04/10/2024 8:35 PM [facility] MCH 30.4 27.0 - 32.0 pcg LAB HEMETOLOGY METHOD 04/10/2024 8:35 PM [facility] MCHC 34.3 32.0 - 37.0 g/dL LAB HEMETOLOGY METHOD 04/10/2024 8:35 PM [facility] RDW 13.2 11.0 - 15.0 % LAB HEMETOLOGY METHOD 04/10/2024 8:35 PM [facility] Platelets 256 130 - 400 K/mcL LAB HEMETOLOGY METHOD 04/10/2024 8:35 PM [facility] MPV 10.7 7.0 - 11.0 FL LAB HEMETOLOGY METHOD 04/10/2024 8:35 PM [facility] NRBC 0.0 <1.0 % LAB HEMETOLOGY METHOD 04/10/2024 8:35 PM [facility] NRBC Absolute 0.00 <0.10 K/mcL LAB HEMETOLOGY METHOD 04/10/2024 8:35 PM [facility] Neutrophils Relative 71.9 % LAB HEMETOLOGY METHOD 04/10/2024 8:35 PM [facility] Lymphocytes Relative 18.5 % LAB HEMETOLOGY METHOD 04/10/2024 8:35 PM [facility] Monocytes Relative 6.0 % LAB HEMETOLOGY METHOD 04/10/2024 8:35 PM [facility] Eosinophils Relative 2.6 % LAB HEMETOLOGY METHOD 04/10/2024 8:35 PM [facility] Basophils Relative 0.4 % LAB HEMETOLOGY METHOD 04/10/2024 8:35 PM [facility] Immature Granulocytes Relative 0.6 % LAB HEMETOLOGY METHOD 04/10/2024 8:35 PM EST [facility] Neutrophils Absolute 8.95(H) 1.50 - 7.00 K/[facility] LAB HEMETOLOGY METHOD 04/10/2024 8:35 PM EST [facility] Lymphocytes Absolute 2.30 1.00 - 5.00 K/mcL LAB HEMETOLOGY METHOD 04/10/2024 8:35 PM EST [facility] Monocytes Absolute 0.74 0.20 - 1.00 K/[facility] LAB HEMETOLOGY METHOD 04/10/2024 8:35 PM EST [facility] Eosinophils Absolute 0.32 0.00 - 0.50 K/[facility] LAB HEMETOLOGY METHOD 04/10/2024 8:35 PM EST [facility] Basophils Absolute 0.05 0.00 - 0.20 K/mcL LAB HEMETOLOGY METHOD 04/10/2024 8:35 PM EST [facility] Immature Granulocytes Absolute 0.07(H) 0.00 - 0.03 K/[facility] LAB HEMETOLOGY METHOD 04/10/2024 8:35 PM EST [facility] Blood Venous blood specimen / Unknown Venipuncture / Unknown 04/10/2024 8:19 PM EST 04/10/2024 8:30 PM EST us Jose Maria Calderon DO LAB BLOOD ORDERABLES Final Res ult [facility] [address] [place] [address], * B-type natriuretic peptide (04/10/2024 8:19 PM EST) BNP 12 <=100 pcg/mL LAB CHEMISTRY METHOD 04/10/2024 9:06 PM EST [facility] Blood Venous blood specimen / Unknown Venipuncture / Unknown 04/10/2024 8:19 PM EST 04/10/2024 8:30 PM EST us Jose Maria Calderon DO LAB BLOOD ORDERABLES Final Res ult Performing Organization Address [facility]/ZIP Co de Phone Number [facility] [address] [place] [address], [place] [phone] * Magnesium (04/10/2024 8:19 PM EST) Pathologist [facility] Magnesium 2.0 1.9 - 2.6 mg/dL LAB CHEMISTRY METHOD 04/10/2024 9:00 PM EST [facility] Blood Venous blood specimen / Unknown Venipuncture / Unknown 04/10/2024 8:19 PM EST 04/10/2024 8:30 PM EST us Jose Maria Calderon DO LAB BLOOD ORDERABLES Final Res ult Performing Organization Address [facility] de Phone Number [facility] [address] [place] [address], [place] [phone] * Lipase (04/10/2024 8:19 PM EST) [facility] Lipase 50 13 - 75 unit/L LAB CHEMISTRY METHOD 04/10/2024 9:00 PM EST [facility] Blood Venous blood specimen / Unknown Venipuncture / Unknown 04/10/2024 8:19 PM EST 04/10/2024 8:30 PM EST us Jose Maria Calderon DO LAB BLOOD ORDERABLES Final Res ult Performing Organization Address [facility]/ZIP Co de Phone Number [facility] [address] [place] [address], [place] [phone] * (ABNORMAL) Comprehensive metabolic panel (04/10/2024 8:19 PM EST) Pathologist [facility] Sodium 134 133 - 145 mmol/L LAB CHEMISTRY METHOD 04/10/2024 9:00 PM EST [facility] Potassium 3.8 3.5 - 5.5 mmol/L LAB CHEMISTRY METHOD 04/10/2024 9:00 PM [facility] Chloride 103 96 - 110 mmol/L LAB CHEMISTRY METHOD 04/10/2024 9:00 PM [facility] CO2 27 21 - 32 mmol/L LAB CHEMISTRY METHOD 04/10/2024 9:00 PM [facility] Anion Gap 4 3 - 11 LAB CHEMISTRY METHOD 04/10/2024 9:00 PM [facility] Glucose 201(H) 70 - 100 mg/dL LAB CHEMISTRY METHOD 04/10/2024 9:00 PM [facility] BUN 11 5 - 25 mg/dL LAB CHEMISTRY METHOD 04/10/2024 9:00 PM [facility] Creatinine 0.82 0.70 - 1.30 mg/dL LAB CHEMISTRY METHOD 04/10/2024 9:00 PM [facility] eGFR 108 >=60 mL/min/1. 73m2 LAB CHEMISTRY METHOD 04/10/2024 9:00 PM [facility] Comment:Calculation based on the??Chronic Kidney Disease Epidemiology Collaboration (CKD-EPI) equation refit??without adjustment for race. BUN/Creatinine Ratio 13.4 LAB CHEMISTRY METHOD 04/10/2024 9:00 PM [facility] Calcium 8.7 8.5 - 10.5 mg/dL LAB CHEMISTRY METHOD 04/10/2024 9:00 PM [facility] AST (SGOT) 23 10 - 42 unit/L LAB CHEMISTRY METHOD 04/10/2024 9:00 PM [facility] ALT (SGPT) 24 10 - 60 unit/L LAB CHEMISTRY METHOD 04/10/2024 9:00 PM [facility] Alkaline Phosphatase 107 42 - 121 unit/L LAB CHEMISTRY METHOD 04/10/2024 9:00 PM [facility] Total Protein 6.8 6.0 - 8.0 g/dL LAB CHEMISTRY METHOD 04/10/2024 9:00 PM EST [facility] Albumin 3.7 3.2 - 5.0 g/dL LAB CHEMISTRY METHOD 04/10/2024 9:00 PM EST [facility] Total Bilirubin 0.5 0.0 - 1.4 mg/dL LAB CHEMISTRY METHOD 04/10/2024 9:00 PM EST [facility] Blood Venous blood specimen / Unknown Venipuncture / Unknown 04/10/2024 8:19 PM EST 04/10/2024 8:30 PM EST Jose Maria Calderon DO LAB BLOOD ORDERABLES Final Res ult [facility] [address] [place] [address], * HIV Screening (06/24/2010) Pathologist [facility] HIV Screening ABSTRACTED Historical Provider HEALTH MAINTENANCE Final Result * Hepatitis C Screening (06/24/2010) Pathologist [facility] Hepatitis C Screening ABSTRACTED Historical Provider HEALTH MAINTENANCE Final Result * (ABNORMAL) Lipid panel (04/10/2010) Pathologist [facility] LDL/HDL Ratio 5(A) 0 - 4 Triglycerides 143 0 - 150 mg/dL Cholesterol 169 0 - 200 mg/dL HDL 32(A) >=40 mg/dL LDL Cholesterol 109(A) 0 - 100 mg/dL Blood Venous blood specimen / Unknown Historical Provider LAB BLOOD ORDERABLES Estefani l Result from Last 3 Months or Most Recently Relevant to Health Maintenance Insurance [employer] Care Teams Assistant Chief Train Dispatcher Relationship Specialty Start Date End Date Yadira Wilder MD [address] [place] [address] PCP - General Internal Medicine 04/10/24
== END 2024-05-16 13:33 | disposition home or self-care (01) ==
LOC: HO.HMCC 12:56
PROVIDERS: PCP Internal Medicine; Visit Provider Internal Medicine
DX: Z13.9 Encounter for screening, unspecified (principal)

== ENCOUNTER → 2024-05-16 12:55 | Outpatient (BNVA) | payer OTHER, SELFPAY | PROVIDERS: PCP Internal Medicine; Visit Provider Internal Medicine | DX: Z09 Encounter for follow-up examination after completed treatment for conditions other than malignant neoplasm (principal); I71.21 Aneurysm of the ascending aorta, without rupture; R21 Rash and other nonspecific skin eruption; I10 Essential (primary) hypertension; E78.9 Disorder of lipoprotein metabolism, unspecified; F33.41 Major depressive disorder, recurrent, in partial remission; G25.81 Restless legs syndrome; R80.9 Proteinuria, unspecified; E66.01 Morbid (severe) obesity due to excess calories; Z68.39 Body mass index [BMI] 39.0-39.9, adult; E11.42 Type 2 diabetes mellitus with diabetic polyneuropathy; Z71.3 Dietary counseling and surveillance | CPT/HCPCS: 83036; 96127; 99212 ==

== ENCOUNTER 2024-07-14 14:04 | Outpatient (REF) | payer OTHER, SELFPAY ==
--- OUTSIDE RECORDS SUMMARY | 2024-07-14 14:57 | XMS_ITS | Clinical Summary ---
Author Organization [facility], Address [address] [place] [address] [place] [address] Phone Care Team Providers Care Commercial Stripper Name Role Phone Yadira Wilder MD Primary Care Provider [phone] Allergies No known active allergies Medications amLODIPine [...] Vaccine (Season Ended) 2024 Insurance Care Teams Commercial Stripper Relationship Specialty Start Date End Date Yadira Wilder MD [address] [place] [address] [id number] PCP - General Internal Medicine 01/10/20
--- OUTSIDE RECORDS SUMMARY | 2024-07-14 14:57 | XMS_ITS | Clinical Summary ---
Author Organization [facility] Address [address] [place] [address] Phone Care Team Providers Care Environmental Director Name Role Phone Yadira Wilder MD Primary Care Provider [phone] Allergies No known active allergies Medications amitriptyline (ELAVIL) 25 mg tablet Take 1 tablet (25 mg total) by mouth at bedtime. Active Active Problems Problem Noted Date Diagnosed Date Headache 04/09/2010 Encounters Date Type Department Care Team Description 06/22/2024 10:00 AM EDT Consult Vascular Surgery - [place] [address] [place] [address] Richard Santos MD Aneurysm of ascending aorta without rupture ([facility] V24) (Primary Dx) 06/20/2024 12:13 AM EDT - 06/20/2024 4:59 AM EDT Emergency [facility] Emergency [address] [place] [address] Discharge Disposition: Left Against Medical Advice from Last 3 Months Immunizations Name Administration Dates Next Due Tdap Tetanus diptheria acell ular pertussis (Boostrix; Adacel) 7yo and older 06/24/2010 Surgical History Surgery Date Site/Laterality Comments KNEE SURGERY PROCEDURE: HISTORICAL KNEE SURGERY; COMMENT: meniscal repair , arthroscopic, Dr. Clements Medical History Medical History Date Comments Diabetes mellitus ([facility] V24, [facility] V28) Family History Relation Name Status Comments Father Alive [place] in late 30's , dm, CHF Mother [...] Office Visit Vascular Surgery - [place] [address] [facility] [facility] [address] [place] [phone] Richard Santos MD [address] [place] [address] 09/25/2024 1:00 PM EDT Ancillary Procedure [facility] [address] [facility] [address] [place] [phone] Health Maintenance Due Date Last Done Comments [...] CBC auto differential (06/20/2024 12:30 AM EDT) [facility] Signature WBC 11.9(H) 4.8 - 10.8 K/mcL LAB HEMETOLOGY METHOD 06/20/2024 12:[address] [facility] RBC 5.00 4.50 - 5.50 M/mcL LAB HEMETOLOGY METHOD 06/20/2024 12:[address] [facility] Hemoglobin 14.7 13.5 - 17.5 g/dL LAB HEMETOLOGY METHOD 06/20/2024 12:[address] [facility] Hematocrit 44.2 42.0 - 54.0 % LAB HEMETOLOGY METHOD 06/20/2024 12:[address] [facility] MCV 88.0 79.0 - 98.0 FL LAB HEMETOLOGY METHOD 06/20/2024 12:[address] [facility] MCH 29.3 27.0 - 32.0 pcg LAB HEMETOLOGY METHOD 06/20/2024 12:[address] [facility] MCHC 33.3 32.0 - 37.0 g/dL LAB HEMETOLOGY METHOD 06/20/2024 12:[address] [facility] RDW 12.8 11.0 - 15.0 % LAB HEMETOLOGY METHOD 06/20/2024 12:[address] [facility] Platelets 222 130 - 400 K/mcL LAB HEMETOLOGY METHOD 06/20/2024 12:[address] [facility] MPV 11.1(H) 7.0 - 11.0 FL LAB HEMETOLOGY METHOD 06/20/2024 12:[address] [facility] NRBC 0.0 <1.0 % LAB HEMETOLOGY METHOD 06/20/2024 12:[address] [facility] NRBC Absolute 0.00 <0.10 K/mcL LAB HEMETOLOGY METHOD 06/20/2024 12:[address] [facility] Neutrophils Relative 69.6 % LAB HEMETOLOGY METHOD 06/20/2024 12:[address] [facility] Lymphocytes Relative 21.0 % LAB HEMETOLOGY METHOD 06/20/2024 12:[address] [facility] Monocytes Relative 5.6 % LAB HEMETOLOGY METHOD 06/20/2024 12:[address] [facility] Eosinophils Relative 3.1 % LAB HEMETOLOGY METHOD 06/20/2024 12:[address] [facility] Basophils Relative 0.3 % LAB HEMETOLOGY METHOD 06/20/2024 12:[address] [facility] Immature Granulocytes Relative 0.4 % LAB HEMETOLOGY METHOD 06/20/2024 12:[address] [facility] Neutrophils Absolute 8.27(H) 1.50 - 7.00 K/mcL LAB HEMETOLOGY METHOD 06/20/2024 12:[address] [facility] Lymphocytes Absolute 2.50 1.00 - 5.00 K/mcL LAB HEMETOLOGY METHOD 06/20/2024 12:[address] [facility] Monocytes Absolute 0.66 0.20 - 1.00 K/mcL LAB HEMETOLOGY METHOD 06/20/2024 12:51 AM EDT [facility] Eosinophils Absolute 0.37 0.00 - 0.50 K/mcL LAB HEMETOLOGY METHOD 06/20/2024 12:51 AM EDT [facility] Basophils Absolute 0.04 0.00 - 0.20 K/mcL LAB HEMETOLOGY METHOD 06/20/2024 12:51 AM EDT [facility] Immature Granulocytes Absolute 0.05(H) 0.00 - 0.03 K/mcL LAB HEMETOLOGY METHOD 06/20/2024 12:51 AM EDT [facility] Blood Venous blood specimen / Unknown Venipuncture / Unknown 06/20/2024 12:30 AM EDT 06/20/2024 12:40 AM EDT us Jr Guzman MD LAB BLOOD ORDERABLES Final Resu lt Performing Organization Address [facility]/ZIP Co de Phone Number [facility] [address] [place] [address], [place] [phone] * (ABNORMAL) Lipase (06/20/2024 12:30 AM EDT) Lipase 102(H) 13 - 75 unit/L LAB CHEMISTRY METHOD 06/20/2024 1:15 AM EDT [facility] Blood Venous blood specimen / Unknown Venipuncture / Unknown 06/20/2024 12:30 AM EDT 06/20/2024 12:40 AM EDT us Jr Guzman MD LAB BLOOD ORDERABLES Final Resu lt Performing Organization Address City/[facility]/ZIP Co de Phone Number [facility] [address] [place] [address], [place] [phone] * (ABNORMAL) Comprehensive metabolic panel (06/20/2024 12:30 AM EDT) Sodium 134 133 - 145 mmol/L LAB CHEMISTRY METHOD 06/20/2024 1:[address] [facility] Potassium 3.8 3.5 - 5.5 mmol/L LAB CHEMISTRY METHOD 06/20/2024 1:[address] [facility] Chloride 100 96 - 110 mmol/L LAB CHEMISTRY METHOD 06/20/2024 1:[address] [facility] CO2 29 21 - 32 mmol/L LAB CHEMISTRY METHOD 06/20/2024 1:[address] [facility] Anion Gap 5 3 - 11 LAB CHEMISTRY METHOD 06/20/2024 1:[address] [facility] Glucose 342(H) 70 - 100 mg/dL LAB CHEMISTRY METHOD 06/20/2024 1:[address] [facility] BUN 11 5 - 25 mg/dL LAB CHEMISTRY METHOD 06/20/2024 1:[address] [facility] Creatinine 0.82 0.70 - 1.30 mg/dL LAB CHEMISTRY METHOD 06/20/2024 1:[address] [facility] eGFR 108 >=60 mL/min/1. 73m2 LAB CHEMISTRY METHOD 06/20/2024 1:[address] [facility] Comment:Calculation based on the??Chronic Kidney Disease Epidemiology Collaboration (CKD-EPI) equation refit??without adjustment for race. BUN/Creatinine Ratio 13.4 LAB CHEMISTRY METHOD 06/20/2024 1:[address] [facility] Calcium 9.0 8.5 - 10.5 mg/dL LAB CHEMISTRY METHOD 06/20/2024 1:[address] [facility] AST (SGOT) 23 10 - 42 unit/L LAB CHEMISTRY METHOD 06/20/2024 1:[address] [facility] ALT (SGPT) 29 10 - 60 unit/L LAB CHEMISTRY METHOD 06/20/2024 1:[address] [facility] Alkaline Phosphatase 117 42 - 121 unit/L LAB CHEMISTRY METHOD 06/20/2024 1:15 AM EDT [facility] Total Protein 7.0 6.0 - 8.0 g/dL LAB CHEMISTRY METHOD 06/20/2024 1:15 AM EDT [facility] Albumin 3.6 3.2 - 5.0 g/dL LAB CHEMISTRY METHOD 06/20/2024 1:15 AM EDT [facility] Total Bilirubin 0.4 0.0 - 1.4 mg/dL LAB CHEMISTRY METHOD 06/20/2024 1:15 AM EDT [facility] Blood Venous blood specimen / Unknown Venipuncture / Unknown 06/20/2024 12:30 AM EDT 06/20/2024 12:40 AM EDT [facility] Henry Guzman MD LAB BLOOD ORDERABLES Final Resu lt [facility] [address] [place] [address], * HIV Screening (06/24/2010) Pathologist [facility] HIV Screening ABSTRACTED Result [facility] Historical [facility] Final Result * Hepatitis C Screening (06/24/2010) Pathologist [facility] Hepatitis C Screening ABSTRACTED Heather Ngo MD HEALTH MAINTENANCE Final Result * (ABNORMAL) Lipid panel (04/10/2010) Pathologist [facility] LDL/HDL Ratio 5(A) 0 - 4 Triglycerides 143 0 - 150 mg/dL Cholesterol 169 0 - 200 mg/dL HDL 32(A) >=40 mg/dL LDL Cholesterol 109(A) 0 - 100 mg/dL Blood Venous blood specimen / Unknown Result [facility] Heather Ngo MD LAB BLOOD ORDERABLES Estefani l Result from Last 3 Months or Most Recently Relevant to Health Maintenance Insurance [facility] [place] [address] Care Teams Environmental Director Relationship Specialty Start Date End Date Yadira Wilder MD [address] [place] [address] PCP - General Internal Medicine 04/10/24
[2024-07-15 15:26] LABS: CT PCR NOT DETECTED (Not Detect.); NG PCR NOT DETECTED (Not Detect.)
== END 2024-07-14 14:05 | disposition home or self-care (01) ==
LOC: HO.LAB 14:04
PROVIDERS: PCP Internal Medicine; Visit Provider Internal Medicine
DX: R10.9 Unspecified abdominal pain (principal); N52.9 Male erectile dysfunction, unspecified; K76.0 Fatty (change of) liver, not elsewhere classified; K21.9 Gastro-esophageal reflux disease without esophagitis; E11.42 Type 2 diabetes mellitus with diabetic polyneuropathy; Z79.4 Long term (current) use of insulin; Z20.2 Contact with and (suspected) exposure to infections with a predominantly sexual mode of transmission
CPT/HCPCS: 87491; 87591; 96127; 99212

== ENCOUNTER 2024-07-14 14:04 | Outpatient (AMB) | payer OTHER, SELFPAY ==
--- OUTSIDE RECORDS SUMMARY | 2024-07-14 14:05 | XMS_ITS | Clinical Summary ---
Author Organization [facility], Address [address] [place] [address] [place] [address] Phone Care Team Providers Care [employer] Coordinator Name Role Phone Yadira Wilder MD Primary Care Provider [phone] Allergies No known active allergies Medications amLODIPine [...] Health Maintenance Due Date Last Done Comments Hepatitis B Vaccine (1 of 3 - 19+ 3-dose series) 04/22 Pneumococcal Vaccine: Peds ( 0 to 5 Years) and At-Risk Patients (6 to 49 Years) (1 of 2 - PCV) 1994 Colorectal Cancer Screening: Annual FOBT 2024 Colorectal Cancer Screening: Colonoscopy 2024 Colorectal Cancer Screening: Sigmoidoscopy 2024 Influenza Vaccine (Season Ended) 2024 Insurance Care Teams International Logistics Coordinator Relationship Specialty Start Date End Date Yadira Wilder MD [address] [place] [phone] PCP - General Internal Medicine 01/10/20
--- OUTSIDE RECORDS SUMMARY | 2024-07-14 14:06 | XMS_ITS | Clinical Summary ---
Author Organization [facility] Address [address] [place] [address] Phone Care Team Providers Care Security Guards Dispatcher Name Role Phone Yadira Wilder MD Primary Care Provider [phone] Allergies No known active allergies Medications amitriptyline (ELAVIL) 25 mg tablet Take 1 tablet (25 mg total) by mouth at bedtime. Active Active Problems Problem Noted Date Diagnosed Date Headache 04/09/2010 Encounters Date Type Department Care Team Description 06/22/2024 10:00 AM EDT Consult Vascular Surgery - [place] [address] [place] [address] Richard Santos MD Aneurysm of ascending aorta without rupture ([facility] V24) (Primary Dx) 06/20/2024 12:13 AM EDT - 06/20/2024 4:59 AM EDT Emergency [facility] Emergency [address] [place] [address] Discharge Disposition: Left Against Medical Advice from Last 3 Months Immunizations Name Administration Dates Next Due Tdap Tetanus diptheria acell ular pertussis (Boostrix; Adacel) 7yo and older 06/24/2010 Surgical History Surgery Date Site/Laterality Comments KNEE SURGERY PROCEDURE: HISTORICAL KNEE SURGERY; COMMENT: meniscal repair , arthroscopic, Dr. Clements Medical History Medical History Date Comments Diabetes mellitus ([facility] V24, [facility] V28) Family History Relation Name Status Comments Father Alive [place] in late 30's , dm, CHF Mother [...] Sign Reading Time Taken Comments Blood Pressure 149/82 06/22/2024 9:54 AM EDT Pulse 77 06/22/2024 9:54 AM EDT Temperature 36.9 ??C (98.4 ??F) 06/20/2024 3:58 AM ED T Respiratory Rate 16 06/20/2024 3:58 AM EDT Oxygen Saturation 99% 06/20/2024 3:58 AM EDT Inhaled Oxygen Concentration - - Weight 127 kg (279 lb 9.6 oz) 06/22/2024 9:54 AM EDT Height 180.3 cm (5' 11 ) 06/22/2024 9:54 AM EDT Body Mass Index 39 06/22/2024 9:54 AM EDT Plan of Treatment Upcoming Encounters Date Type Department Care Team (Late st Contact Info) Description 07/20/2024 10:30 AM EDT Office Visit Vascular Surgery - [place] [address] [facility] [address] [place] [id number] Richard Santos MD [address] [place] [address] 09/25/2024 1:00 PM EDT Ancillary Procedure [facility] [address] [facility] [address] [place] [phone] Health Maintenance Due Date Last Done Comments [...] 04/11/2024 Diabetes: Annual GFR (Glomerular Filtration Rate) 06/20/2025 06/20/2024, 04/10/2024, 04/10/2010 Hypertension/CHF/CAD Annual BMP Blood Test 06/20/2025 06/20/2024, 04/10/2024, 04/10/2010 HIV Screening Completed 06/24/2010 Hepatitis [...] age to complete this topic Meningococcal B Vaccine Aged Out No l onger eligible based on patient's age to complete this topic RSV Immunization Patients Under 20 months Aged Out No longer eligible based on patient's age to complete this topic Varicella Vaccines Aged Out No longer eligible based on patient's age to complete this topic Procedures Procedure Name Priority Date/Time Associated Diagnosis Comments CBC WITH AUTO DIFFERENTIAL STAT 06/20/2024 12:30 AM EDT LIPASE STAT 06/20/2024 12:30 AM EDT COMPREHENSIVE METABOLIC PANEL STAT 06/20/2024 12:30 AM EDT CBC AND DIFFERENTIAL STAT 06/20/2024 12:30 AM EDT HEPATITIS C SCREENING Routine 06/24/2010 HIV SCREENING Routine 06/24/2010 LIPID PANEL Routine 04/10/2010 from Last 3 Months or Most Recently Relevant to Health Maintenance Results * (ABNORMAL) CBC auto differential (06/20/2024 12:30 AM EDT) [facility] Signature WBC 11.9(H) 4.8 - 10.8 K/mcL LAB HEMETOLOGY METHOD 06/20/2024 12:51 AM [facility] RBC 5.00 4.50 - 5.50 M/mcL LAB HEMETOLOGY METHOD 06/20/2024 12:51 AM [facility] Hemoglobin 14.7 13.5 - 17.5 g/dL LAB HEMETOLOGY METHOD 06/20/2024 12:51 AM [facility] Hematocrit 44.2 42.0 - 54.0 % LAB HEMETOLOGY METHOD 06/20/2024 12:51 AM [facility] MCV 88.0 79.0 - 98.0 FL LAB HEMETOLOGY METHOD 06/20/2024 12:51 AM [facility] MCH 29.3 27.0 - 32.0 pcg LAB HEMETOLOGY METHOD 06/20/2024 12:51 AM [facility] MCHC 33.3 32.0 - 37.0 g/dL LAB HEMETOLOGY METHOD 06/20/2024 12:51 AM [facility] RDW 12.8 11.0 - 15.0 % LAB HEMETOLOGY METHOD 06/20/2024 12:51 AM [facility] Platelets 222 130 - 400 K/mcL LAB HEMETOLOGY METHOD 06/20/2024 12:51 AM [facility] MPV 11.1(H) 7.0 - 11.0 FL LAB HEMETOLOGY METHOD 06/20/2024 12:51 AM [facility] NRBC 0.0 <1.0 % LAB HEMETOLOGY METHOD 06/20/2024 12:51 AM [facility] NRBC Absolute 0.00 <0.10 K/mcL LAB HEMETOLOGY METHOD 06/20/2024 12:51 AM [facility] Neutrophils Relative 69.6 % LAB HEMETOLOGY METHOD 06/20/2024 12:51 AM [facility] Lymphocytes Relative 21.0 % LAB HEMETOLOGY METHOD 06/20/2024 12:51 AM [facility] Monocytes Relative 5.6 % LAB HEMETOLOGY METHOD 06/20/2024 12:51 AM [facility] Eosinophils Relative 3.1 % LAB HEMETOLOGY METHOD 06/20/2024 12:51 AM [facility] Basophils Relative 0.3 % LAB HEMETOLOGY METHOD 06/20/2024 12:51 AM [facility] Immature Granulocytes Relative 0.4 % LAB HEMETOLOGY METHOD 06/20/2024 12:51 AM [facility] Neutrophils Absolute 8.27(H) 1.50 - 7.00 K/mcL LAB HEMETOLOGY METHOD 06/20/2024 12:51 AM [facility] Lymphocytes Absolute 2.50 1.00 - 5.00 K/mcL LAB HEMETOLOGY METHOD 06/20/2024 12:51 AM [facility] Monocytes Absolute 0.66 0.20 - 1.00 K/mcL LAB HEMETOLOGY METHOD 06/20/2024 12:51 AM EDT [facility] Eosinophils Absolute 0.37 0.00 - 0.50 K/mcL LAB HEMETOLOGY METHOD 06/20/2024 12:51 AM EDT [facility] Basophils Absolute 0.04 0.00 - 0.20 K/mcL LAB HEMETOLOGY METHOD 06/20/2024 12:51 AM EDT [facility] Immature Granulocytes Absolute 0.05(H) 0.00 - 0.03 K/mcL LAB HEMETOLOGY METHOD 06/20/2024 12:51 AM EDT [facility] Blood Venous blood specimen / Unknown Venipuncture / Unknown 06/20/2024 12:30 AM EDT 06/20/2024 12:40 AM EDT us Jr Guzman MD LAB BLOOD ORDERABLES Final Resu lt Performing Organization Address [facility]/ZIP Co de Phone Number [facility] [address] [place] [address], [place] [phone] * (ABNORMAL) Lipase (06/20/2024 12:30 AM EDT) Lipase 102(H) 13 - 75 unit/L LAB CHEMISTRY METHOD 06/20/2024 1:15 AM EDT [facility] Blood Venous blood specimen / Unknown Venipuncture / Unknown 06/20/2024 12:30 AM EDT 06/20/2024 12:40 AM EDT us Jr Guzman MD LAB BLOOD ORDERABLES Final Resu lt Performing Organization Address City/[facility]/ZIP Co de Phone Number [facility] [address] [place] [address], [place] [phone] * (ABNORMAL) Comprehensive metabolic panel (06/20/2024 12:30 AM EDT) Sodium 134 133 - 145 mmol/L LAB CHEMISTRY METHOD 06/20/2024 1:15 AM [facility] Potassium 3.8 3.5 - 5.5 mmol/L LAB CHEMISTRY METHOD 06/20/2024 1:15 AM [facility] Chloride 100 96 - 110 mmol/L LAB CHEMISTRY METHOD 06/20/2024 1:15 AM [facility] CO2 29 21 - 32 mmol/L LAB CHEMISTRY METHOD 06/20/2024 1:15 AM [facility] Anion Gap 5 3 - 11 LAB CHEMISTRY METHOD 06/20/2024 1:15 AM [facility] Glucose 342(H) 70 - 100 mg/dL LAB CHEMISTRY METHOD 06/20/2024 1:15 AM [facility] BUN 11 5 - 25 mg/dL LAB CHEMISTRY METHOD 06/20/2024 1:15 AM [facility] Creatinine 0.82 0.70 - 1.30 mg/dL LAB CHEMISTRY METHOD 06/20/2024 1:15 AM [facility] eGFR 108 >=60 mL/min/1. 73m2 LAB CHEMISTRY METHOD 06/20/2024 1:15 AM [facility] Comment:Calculation based on the??Chronic Kidney Disease Epidemiology Collaboration (CKD-EPI) equation refit??without adjustment for race. BUN/Creatinine Ratio 13.4 LAB CHEMISTRY METHOD 06/20/2024 1:15 AM [facility] Calcium 9.0 8.5 - 10.5 mg/dL LAB CHEMISTRY METHOD 06/20/2024 1:15 AM [facility] AST (SGOT) 23 10 - 42 unit/L LAB CHEMISTRY METHOD 06/20/2024 1:15 AM [facility] ALT (SGPT) 29 10 - 60 unit/L LAB CHEMISTRY METHOD 06/20/2024 1:15 AM [facility] Alkaline Phosphatase 117 42 - 121 unit/L LAB CHEMISTRY METHOD 06/20/2024 1:15 AM EDT [facility] Total Protein 7.0 6.0 - 8.0 g/dL LAB CHEMISTRY METHOD 06/20/2024 1:15 AM EDT [facility] Albumin 3.6 3.2 - 5.0 g/dL LAB CHEMISTRY METHOD 06/20/2024 1:15 AM EDT [facility] Total Bilirubin 0.4 0.0 - 1.4 mg/dL LAB CHEMISTRY METHOD 06/20/2024 1:15 AM EDT [facility] Blood Venous blood specimen / Unknown Venipuncture / Unknown 06/20/2024 12:30 AM EDT 06/20/2024 12:40 AM EDT [facility] Henry Guzman MD LAB BLOOD ORDERABLES Final Resu lt [facility] [address] [place] [address], * HIV Screening (06/24/2010) Pathologist [facility] HIV Screening ABSTRACTED Result [facility] Historical [facility] [employer] Final Result * Hepatitis C Screening (06/24/2010) Pathologist [facility] Hepatitis C Screening ABSTRACTED Heather Ngo MD HEALTH MAINTENANCE Final Result * (ABNORMAL) Lipid panel (04/10/2010) Pathologist [facility] LDL/HDL Ratio 5(A) 0 - 4 Triglycerides 143 0 - 150 mg/dL Cholesterol 169 0 - 200 mg/dL HDL 32(A) >=40 mg/dL LDL Cholesterol 109(A) 0 - 100 mg/dL Blood Venous blood specimen / Unknown Result [facility] Heather Ngo MD LAB BLOOD ORDERABLES Estefani l Result from Last 3 Months or Most Recently Relevant to Health Maintenance Insurance [facility] [employer] Care Teams Security Guards Dispatcher Relationship Specialty Start Date End Date Yadira Wilder MD [address] [place] [address] PCP - General Internal Medicine 04/10/24
--- NOTE | 2024-07-14 14:09 | MHC.PC.OV ---
Vital Signs 07/14/24 14:10 Height 5 ft 11 in Weight 276 lb BMI 38.5 BP 128/88 Blood Pressure Location Rt brachial Position Sitting Respiration 15 Pulse 107 H Pulse Source Pulse Oximeter Temp 98.6 F Temp Source Oral Pulse Oximetry (%) 97 Oxygen Delivery Method Room Air Intake Visit Reasons: Pain in abdomen Allergies No Known Allergies Allergy (Verified 05/16/24 13:00) Medication List - Last Reconciled 07/14/24 by Yadira Wilder MD amlodipine 10 mg PO DAILY 90 days aspirin 81 mg PO DAILY bisacodyl (Dulcolax (bisacodyl)) 10 mg (2 x 5 mg) PO BEDTIME blood sugar diagnostic (FreeStyle Lite Strips) Use to check blood sugars three times daily and if symptomatic with hypo/hyperglycemia cholecalciferol (vitamin D3) 25 mcg PO DAILY 90 days citalopram 40 mg PO DAILY clobetasol 0.05% 1 appl topical BEDTIME docusate sodium 100 mg PO DAILY dulaglutide 3 mg (0.5 mL) subcut QWEEK 30 days famotidine 40 mg PO DAILY FreeStyle Soniya 3 [place] (blood-glucose,pleating machine operator,cont) As directed NS FreeStyle Soniya 3 Sensor (blood-glucose sensor) As directed NS gabapentin 300 mg PO BID glipizide 10 mg PO BID 90 days insulin glargine U-300 conc 60 units (0.2 mL) subcut BID 90 days insulin lispro (Humalog KwikPen (U-100) Insulin) 10 units (0.1 mL) subcut TID lancets (FreeStyle Lancets) Use to check blood sugars three times daily and if symptomatic with hypo/hyperglycemia meclizine 25 mg PO BID PRN methylcellulose (laxative) (Citrucel) 500 mg PO DAILY nystatin 1 appl topical DAILY 30 days ondansetron 4 mg PO Q8H PRN pantoprazole 40 mg PO QAM pen needle, diabetic (Easy Comfort Pen [place]) Once at night polyethylene glycol 3350 (Miralax) 17 grams PO DAILY Tobacco use date assessed: 07/14/24 Dental Screening Dental Screen Date: 07/14/24 Did you have a dental visit in the last 12 months?: Yes Did you have a dental problem in the last 6 months where you did not have access to dental care?: Yes Was dental information given to patient?: Patient has dentist HPI Pain in abdomen HPI Details History - The patient is a 49-year-old male presenting with abdominal pain and management of Type 2 Diabetes Mellitus. - The patient reports experiencing abdominal pain localized to the liver area, initially described as shooting pain, with the worst episode occurring while sitting which felt like a cramp. - The patient feels tightness in the abdominal region, describing a sensation of a full stomach pushing against other internal structures, exacerbated when leaning in certain positions. - The abdominal pain is associated with dietary intake of fatty foods or acidic foods like orange and cranberry juice. - The patient underwent an ultrasound in the past that revealed hepatomegaly, attributed to a fatty liver condition. - The patient has been using [id number] liver and kidney supplements from [employer] without knowledge of their contents. - The patient denies diarrhea and bleeding in stools but reports constipation. - The patient is also diabetic with a last recorded HbA1c of 8.4% and reports neuropathy symptoms with tingling in fingertips and toes. - The fasting blood glucose was noted to be significantly elevated, ranging from 250 to 270 mg/dL, . - The patient reports difficulty with erections, premature climax, and concern for a possible sexually transmitted infection after a partner was treated for an unspecified condition three months prior. Problem List - Abdominal pain - Hepatomegaly - Type 2 Diabetes Mellitus - Diabetic neuropathy - Erectile dysfunction Diagnostic results - Labs: Previous HbA1c of 8.4% - Tests and diagnostics: Prior ultrasound revealing liver enlargement Patient Instructions - Stop taking liver and kidney supplements not prescribed by a healthcare provider. - Exercise regularly and aim for weight loss. - Monitor blood glucose levels three times daily. - Increase long-acting insulin to 60 units at night and maintain 50 units in the morning. - If fasting glucose remains above 150 mg/dL, increase insulin by 2 units each night. - chlamydia GC test ordered - referral placed for urology consultation - avoid the foods causing abdominal discomfort Review of Systems General: No fever no chills neurological: No headaches no dizziness ear nose throat: No sore throat no hearing difficulty no ear pain cardiovascular: No syncope, no chest pain, no palpitations gastrointestinal: No nausea vomiting or diarrhea skin: No new complaints Physical Exam general: No acute distress HEENT: No acute findings neck: Supple respiratory system: Able to talk in full sentences, no audible wheeze no stridor cardiovascular: S1-S2 RRR gastrointestinal: Soft nontender bowel sounds positive extremities: No new findings SPECIALTY FINISHING UTILITY PERSON: Alert awake oriented x3 motor sensory intact skin: Normal turgor PFSH Medical History Paresthesias Depression Anxiety Neck pain Hypersomnia Snoring Obstructive sleep apnea Herpes simplex type 1 antibody positive Lumbar pain Hip pain, right Microalbuminuria Diabetic nephropathy Restless leg syndrome Vitamin D deficiency Chronic GERD Depression, major, recurrent Hypertension, essential Lipid disorder Diabetes 1.5, managed as type 2 Surgical History History of esophagogastroduodenoscopy (EGD) Hx of colonoscopy H/O knee surgery No pertinent past surgical history Family History Father Stroke Diabetes mellitus Kidney disease Mother HTN (hypertension) Brother No problems noted. Sister No problems noted. Sister No problems noted. Sister No problems noted. Social History Housing: Apartment Alcohol intake: current Alcohol intake frequency: 3 or more drinks per day Alcohol type: hard liquor Patient Tobacco Use Status: Former Tobacco user Cigarettes Per Day: 1 e-Cigarette/Vaping Use: Currently Using Substance Use Type: Marijuana Current occupational status: employed Cognitive needs: No Hearing needs: No Vision needs: Yes Questionnaire PHQ-9 Over the last 2 weeks, how often have you been bothered by any of the following problems? 1. Little interest or pleasure in doing things: several days 2. Feeling down, depressed, or hopeless: several days 3. Trouble falling or staying asleep, or sleeping too much: several days 4. Feeling tired or having little energy: several days 5. Poor appetite or overeating: several days 6. Feeling bad about yourself - or that you are a failure or have let yourself or your family down: not at all 7. Trouble concentrating on things, such as reading the newspaper or watching television: several days 8. Moving or speaking so slowly that other people could have noticed. Or the opposite - being so fidgety or restless that you have been moving around a lot more than usual: several days 9. Thoughts that you would be better off or of hurting yourself in some way: not at all Total score: 7 Depression Screening Interpretation: Positive Depression Screening Follow-up: Existing condition and In treatment Depression Screening Done: Yes 85020 - PHQ-9 Billing: Yes Source: Developed by Drs. Bakari Escobedo, Shireen Riley, Luis Leo and colleagues, with an educational janay from [employer]. Thrive Questionnaire Date Thrive assessed: 05/16/24 ELIZABETH-7 AMB Questionnaire ELIZABETH-7 Date ELIZABETH - 7 assessed: 05/16/24 Source: Developed by Drs. Bakari Escobedo, Shireen Riley, Luis Leo and colleagues, with an educational janay from [employer]. Physical exam (Primary Care) Vital Signs: Last Vital Signs Temp 98.6 F 07/14/24 14:10 Pulse 107 H 07/14/24 14:10 Resp 15 07/14/24 14:10 BP 128/88 07/14/24 14:10 Pulse Ox 97 07/14/24 14:10 Oxygen Delivery Method Room Air 07/14/24 14:10 BMI result Body Mass Index 38.5 Tobacco/Smoking Status: Tobacco use Status Tobacco use date assessed 07/14/24 07/14/24 14:15 Patient Tobacco Use Status Former Tobacco user 07/14/24 14:09 e-Cigarette/Vaping Use Currently Using 07/14/24 14:15 PHQ-9: PHQ-9 Score PHQ-9: Total score 7 07/14/24 14:44 Depression Screening Interpretation: Positive Depression Screening Follow-up: Existing condition and In treatment Thrive Assessment: Date of Thrive Assessment Date Thrive assessed 05/16/24 07/14/24 14:09 Coding Level of Care Code Est Pt Level 5 (24717) Complex EM visit Add On G2211 Diagnoses STD exposure Z20.2 Erectile disorder N52.9 Abdominal discomfort R10.9 Fatty liver K76.0 Screen for STD (sexually transmitted disease) Z11.3 Chronic GERD K21.9 Diabetes 1.5, managed as type 2 E13.9 Insulin long-term use Z79.4 Diabetic polyneuropathy associated with type 2 diabetes mellitus E11.42 Diabetes mellitus complication detail: diabetic polyneuropathy Diabetes mellitus type: type 2 Additional Codes PHQ-9 - 56814 - PHQ-9 Billing: Yes ([id number]) Time Spent (min) 41 Comment Going over previous imaging, [id number] with the patient, coordination of care Assessment & Plan Assessment & Plan (1) STD exposure: Code(s): Z20.2 - Contact with and (suspected) exposure to infections with a predominantly sexual mode of transmission Category: Medical (2) Erectile disorder: Code(s): N52.9 - Male erectile dysfunction, unspecified Category: Medical (3) Abdominal discomfort: Code(s): R10.9 - Unspecified abdominal pain Category: Medical (4) Fatty liver: Code(s): K76.0 - Fatty (change of) liver, not elsewhere classified Category: Medical (5) Screen for STD (sexually transmitted disease): Code(s): Z11.3 - Encounter for screening for infections with a predominantly sexual mode of transmission Category: Medical (6) Chronic GERD: Code(s): K21.9 - Gastro-esophageal reflux disease without esophagitis Category: Medical (7) Diabetes 1.5, managed as type 2: Code(s): E13.9 - Other specified diabetes mellitus without complications Category: Medical (8) Insulin long-term use: Code(s): Z79.4 - terminal computer operator (current) use of insulin Category: Medical (9) Diabetic neuropathy: Code(s): E11.40 - Type 2 diabetes mellitus with diabetic neuropathy, unspecified Category: Medical Qualifiers: Diabetes mellitus complication detail: diabetic polyneuropathy Diabetes mellitus type: type 2 Qualified Code(s): E11.42 - Type 2 diabetes mellitus with diabetic polyneuropathy Plan History - The patient is a 49-year-old male presenting with abdominal pain and management of Type 2 Diabetes Mellitus. - The patient reports experiencing abdominal pain localized to the liver area, initially described as shooting pain, with the worst episode occurring while sitting which felt like a cramp. - The patient feels tightness in the abdominal region, describing a sensation of a full stomach pushing against other internal structures, exacerbated when leaning in certain positions. - The abdominal pain is associated with dietary intake of fatty foods or acidic foods like orange and cranberry juice. - The patient underwent an ultrasound in the past that revealed hepatomegaly, attributed to a fatty liver condition. - The patient has been using byet-gqv-pzqungg liver and kidney supplements from [employer] without knowledge of their contents. - The patient denies diarrhea and bleeding in stools but reports constipation. - The patient is also diabetic with a last recorded HbA1c of 8.4% and reports neuropathy symptoms with tingling in fingertips and toes. - The fasting blood glucose was noted to be significantly elevated, ranging from 250 to 270 mg/dL, . - The patient reports difficulty with erections, premature climax, and concern for a possible sexually transmitted infection after a partner was treated for an unspecified condition three months prior. Problem List - Abdominal pain - Hepatomegaly - Type 2 Diabetes Mellitus - Diabetic neuropathy - Erectile dysfunction Diagnostic results - Labs: Previous HbA1c of 8.4% - Tests and diagnostics: Prior ultrasound revealing liver enlargement Patient Instructions - Stop taking liver and kidney supplements not prescribed by a healthcare provider. - Exercise regularly and aim for weight loss. - Monitor blood glucose levels three times daily. - Increase long-acting insulin to 60 units at night and maintain 50 units in the morning. - If fasting glucose remains above 150 mg/dL, increase insulin by 2 units each night. - chlamydia GC test ordered - referral placed for urology consultation - avoid the foods causing abdominal discomfort Orders: Orders CT NG by PCR Today Z20.2 - Contact with and (suspected) exposure to infections with a predominantly sexual mode of transmission Referrals Urology Referral N52.9 - Male erectile dysfunction, unspecified Medications: Changed From insulin glargine U-300 conc 50 units (0.1667 mL) subcut BID 90 days 60 mL 3RF E11.65 - Type 2 diabetes mellitus with hyperglycemia To insulin glargine U-300 conc 60 units (0.2 mL) subcut BID 36 mL 3RF 90 days E11.65 - Type 2 diabetes mellitus with hyperglycemia
[2024-07-14 14:10] VITALS: BP 128/88; PULSE 107; RESP 15; TEMP 37; O2SAT 97; BMI 38.5
== END 2024-07-14 15:04 | disposition home or self-care (01) ==
LOC: HO.HMCC 14:04
PROVIDERS: PCP Internal Medicine; Visit Provider Internal Medicine
DX: R10.9 Unspecified abdominal pain (principal); Z79.4 Long term (current) use of insulin; E11.42 Type 2 diabetes mellitus with diabetic polyneuropathy; Z20.2 Contact with and (suspected) exposure to infections with a predominantly sexual mode of transmission; N52.9 Male erectile dysfunction, unspecified; K76.0 Fatty (change of) liver, not elsewhere classified; Z11.3 Encounter for screening for infections with a predominantly sexual mode of transmission; K21.9 Gastro-esophageal reflux disease without esophagitis

== ENCOUNTER 2024-10-04 09:59 | Outpatient (AMB) | payer OTHER, SELFPAY ==
--- NOTE | 2024-10-04 10:03 | MHC.OFFVIS ---
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 Intake Note: New patient dx aortic aneurysm c/o some sob and chest tightness Life Sciences Manager Required: No Allergies No Known Allergies Allergy (Verified 05/16/24 13:00) Medication List - Last Reconciled 10/04/24 by Varun Will MD amlodipine 10 mg PO DAILY 90 days aspirin 81 mg PO DAILY bisacodyl (Dulcolax (bisacodyl)) 10 mg (2 x 5 mg) PO BEDTIME blood sugar diagnostic (FreeStyle Lite Strips) USE TO CHECK BLOOD SUGARS THREE TIMES DAILY AND IF SYMPTOMATIC WITH HYPO/HYPERGLYCEMIA cholecalciferol (vitamin D3) 25 mcg PO DAILY 90 days citalopram 40 mg PO DAILY clobetasol 0.05% 1 appl topical BEDTIME docusate sodium 100 mg PO DAILY dulaglutide 3 mg (0.5 mL) subcut QWEEK 30 days famotidine 40 mg PO DAILY FreeStyle Soniya 3 [place] (blood-glucose,change management manager,cont) As directed NS FreeStyle Soniya 3 Sensor (blood-glucose sensor) As directed NS gabapentin 300 mg PO BID glipizide 10 mg PO BID 90 days insulin glargine U-300 conc 60 units (0.2 mL) subcut BID 90 days insulin lispro (Humalog KwikPen (U-100) Insulin) 10 units (0.1 mL) subcut TID lancets (FreeStyle Lancets) Use to check blood sugars three times daily and if symptomatic with hypo/hyperglycemia meclizine 25 mg PO BID PRN methylcellulose (laxative) (Citrucel) 500 mg PO DAILY nystatin 1 appl topical DAILY 30 days ondansetron 4 mg PO Q8H PRN pantoprazole 40 mg PO QAM pen needle, diabetic (Easy Comfort Pen [place]) Once at night polyethylene glycol 3350 (Miralax) 17 grams PO DAILY HPI Comments Details: Thank you for referring Daniel in management of ascending aortic aneurysm. However he has a little confused as he has seen a building tech in [place] Dr. Artis who he had seen recently and had a recent echocardiogram that was done on 09/17/2024 which showed moderately enlarged ascending aorta at 4.6 cm. Patient had a prior echocardiogram 2019 at [facility] which showed a size of 4.3 cm. Patient referred here for further management. Patient has longstanding history of diabetes, hyperlipidemia and obesity. Currently off statin as he was trying to see some of his gastroenterologic symptoms were related to simvastatin and that has led to increase in his LDL cholesterol was expected from 64-136. Patient did not restart his statin therapy as his symptoms did not improve after stopping his simvastatin. Patient smokes marijuana denies any tobacco smoking. Strong family history of coronary artery disease both in father and mom avoid require stenting but lived into their 80s. Patient said he is active does not have any clear exertional chest pain but does not exertional shortness of breath. He also has precordial chest pain which is atypical for ischemia. He comes here for further evaluation from cardiac perspective for his ascending aortic aneurysm. [facility] Medical History (Updated 10/04/24 @ 13:33 by Varun Will MD) Ascending aortic aneurysm Paresthesias Depression Anxiety Neck pain Hypersomnia Snoring Obstructive sleep apnea Herpes simplex type 1 antibody positive Lumbar pain Hip pain, right Microalbuminuria Diabetic nephropathy Restless leg syndrome Vitamin D deficiency Chronic GERD Depression, major, recurrent Hypertension, essential Lipid disorder Diabetes 1.5, managed as type 2 Surgical History History of esophagogastroduodenoscopy (EGD) Hx of colonoscopy H/O knee surgery No pertinent past surgical history Family History Father Stroke Diabetes mellitus Kidney disease Mother HTN (hypertension) Brother No problems noted. Sister No problems noted. Sister No problems noted. Sister No problems noted. Social History Housing: Apartment Alcohol intake: current Alcohol intake frequency: 3 or more drinks per day Alcohol type: hard liquor Patient Tobacco Use Status: Former Tobacco user Cigarettes Per Day: 1 e-Cigarette/Vaping Use: Currently Using Substance Use Type: Marijuana Current occupational status: employed Cognitive needs: No Hearing needs: No Vision needs: Yes Review of Systems Const Denies chills, Reports daytime sleepiness, Reports fatigue, Denies fever(s), Denies frequent falls, Denies poor appetite, Reports snoring, Reports stops breathing during sleep, Denies weakness, Reports weight gain and Denies weight loss Eyes Reports blurry vision and Reports loss of vision ENT Reports dizziness and Denies hearing loss Card Reports chest pain, Denies claudication, Denies leg edema, Reports lightheadedness, Reports palpitations, Reports dyspnea, Reports dyspnea on exertion and Reports orthopnea Resp Denies cough, Denies excessive phlegm production, Reports dyspnea, Reports dyspnea on exertion, Reports snoring and Denies wheezing GI Denies abdominal pain, Denies hematochezia, Denies change in bowel habits, Denies nausea and Denies vomiting Denies dysuria and Reports urinary frequency Musc Reports arthralgias, Reports muscle weakness, Reports numbness and Denies other (frequent falls) Skin/Breast Denies nail changes and Denies rash Neuro Denies Abnormal speech present, Reports dizziness, Denies frequent falls, Reports loss of vision, Denies memory loss, Reports numbness and Denies weakness Psych Denies depression and Denies memory loss Endo Reports fatigue and Reports palpitations Kingsley/Lymph Reports easy bruising and Reports other (anemia) Aller/Immun Denies wheezing Physical Exam Vital Signs: Last Vital Signs Pulse 71 10/04/24 10:04 BP 120/80 10/04/24 10:04 BMI result Body Mass Index 38.7 Neuro Speech: No Abnormal speech present Office Procedures EKG Details: EKG shows normal sinus rhythm with T-wave inversion inferior leads [id number], Complete Assessment & Plan Assessment & Plan (1) Chest pain: Code(s): R07.9 - Chest pain, unspecified Category: Medical Qualifiers: Chest pain type: other chest pain Qualified Code(s): R07.89 - Other chest pain Plan: Patient has atypical chest pain but has exertional shortness of breath which could be multifactorial given his weight. However given his multiple risk factors for vascular disease would suggest exercise myocardial perfusion imaging to rule out obstructive coronary artery disease. This was discussed with him. Understands agrees. Advised continued aggressive risk factor modification. Goal hemoglobin A1c less than 7%. Consider GLP 1 antagonist to both target diabetes management as well as obesity. This will be pursued through your office. I have reinstated statin therapy given his elevated LDL and multiple risk factors. Target goal LDL less than 70 mg/dL. Advised lipid panel in couple of months. Continue aggressive blood pressure control, this is well optimized at this point time. Encouraged to participate in regular physical activity. (2) Ascending aortic aneurysm: Code(s): I71.21 - Aneurysm of the ascending aorta, without rupture Category: Medical Plan: Ascending aortic aneurysm which is noted to be moderate at 4.6 cm. Not at a level for surgical repair. We discussed about pathophysiology of aortic aneurysm and possible etiologies. Genetic etiologies need to be ruled out. Will refer him to Genetics programmed to evaluate for genetic forms of thoracic aortic aneurysm disease. If non his target for repair would be 5.5 cm and this was discussed with him. Management of ascending aortic aneurysm was discussed including aggressive modification of vascular risk factor modifications above. Advised to avoid sudden strenuous isometric exercise. Will follow up on other echocardiogram in 6 months time to assess any rapid change in his size that may indicate surgical intervention as well. Symptoms associated with a acute aortic syndrome were discussed advised him to seek immediate care if he develops any symptoms. Understands and agrees. He is encouraged to participate in regular physical activity as tolerated. Will follow up in the clinic in 2 months after stress testing and lipid panel and in 6 months with me after echocardiogram. Thank you for allowing me to partake in his care Orders: Orders CA stress test Today R07.89 - Other chest pain NM cardiolite stress test 2 Weeks R07.9 - Chest pain, unspecified CA Echo Limited 6 Months I42.9 - Cardiomyopathy, unspecified, I71.21 - Aneurysm of the ascending aorta, without rupture Lipid Panel 2 Months I25.10 - Atherosclerotic heart disease of [place] coronary artery without angina pectoris, I71.21 - Aneurysm of the ascending aorta, without rupture Medications: New atorvastatin (Lipitor) 40 mg PO DAILY 30 tabs 5RF I71.21 - Aneurysm of the ascending aorta, without rupture Coding Level of Care Code New Pt Level 4 (02393) Complex EM visit Add On G2211 Diagnoses Other chest pain R07.89 Chest pain type: other chest pain Ascending aortic aneurysm I71.21 CPT Codes EKG - CPT: 05245-[id number], Complete ([id number])
[2024-10-04 10:04] VITALS: BP 120/80; PULSE 71; BMI 38.7
--- OUTSIDE RECORDS SUMMARY | 2024-10-04 10:32 | XMS_ITS | Clinical Summary ---
Author Organization [facility] Address [address] [place] [address] Phone Care Team Providers Care Payroll Examiner Name Role Phone Yadira Wilder MD Primary Care Provider [phone] Allergies No known active allergies Medications amitriptyline (ELAVIL) 25 mg tablet Take 1 tablet (25 mg total) by mouth at bedtime. Active Hospital, Clinic, or Other Facility Administered Medication Ordered Dose Route Frequency Start Date End Date Status perflutren lipid microsphere (DEFINITY) 1.3 mL in sodium chloride 0.9% 8.7 mL injectionIndications:Aneury sm of ascending aorta without rupture ([facility] V24) 10 mL IV Once 09/25/2024 09/25/2024 Ended Active Problems Problem Noted Date Diagnosed Date Headache 04/09/2010 Encounters Date Type Department Care Team Description 09/25/2024 2:30 PM EDT Ancillary Procedure [facility] [address] [place] [address] Aneurysm of ascending aorta without rupture ([facility] V24) from Last 3 Months Immunizations Name Administration Dates Next Due Tdap Tetanus diptheria acell ular pertussis (Boostrix; Adacel) 7yo and older 06/24/2010 Surgical History Surgery Date Site/Laterality Comments KNEE SURGERY PROCEDURE: HISTORICAL KNEE SURGERY; COMMENT: meniscal repair , arthroscopic, Dr. Clements Medical History Medical History Date Comments Diabetes mellitus ([facility] V24, [facility] V28) Family History Relation Name Status Comments Father Alive ID in late 30's , dm, CHF Mother [...] Sign Reading Time Taken Comments Blood Pressure 116/74 09/25/2024 3:20 PM EDT Pulse 77 06/22/2024 9:54 AM EDT Temperature 36.9 C (98.4 F) 06/20/2024 3:58 AM EDT Respiratory Rate 16 06/20/2024 3:58 AM EDT Oxygen Saturation 99% 06/20/2024 3:58 AM EDT Inhaled Oxygen Concentration - - Weight 124 kg (273 lb) 09/25/2024 3:20 PM EDT Height 180.3 cm (5' 11 ) 09/25/2024 3:20 PM EDT Body Mass Index 38.08 09/25/2024 3:20 PM EDT Plan of Treatment Upcoming Encounters Date Type Department Care Team (Late st Contact Info) Description 10/26/2024 11:00 AM EDT Office Visit Vascular Surgery - [place] [address] [facility] [address] [place] [id number] Richard Santos MD [address] [facility] [address] [place] [address] Health Maintenance Due Date Last Done Comments Diabetes: Annual Foot Exam 1985 Diabetes: Annual Retina Eye Exam 1985 Hepatitis B Vaccines (1 of 3 - 19+ 3-dose series) 1994 DTaP,Tdap,and Td Vaccines (3 - Td or Tdap) 08/20/2021 08/21/2011, 06/24/2010 Cholesterol Screening (Lipid Panel) 02/01/2022 04/10/2010 Colorectal Cancer Screening: Colonoscopy 02/01/2022 Social Influencers of Health Screening 02/01/2022 COVID-19 Vaccine ( season) 2023 07/05/2020, 06/14/2020 Depression Screening 03/01/2024 Diabetes: Annual Urine Albumin-Creatinine Ratio (uACR) 04/11/2024 Diabetes: Blood Sugar Control Test (HGBA1C) 04/11/2024 Influenza Vaccine (#1) 2024 , 11/14/2019, 01/31/2018, Additional history exists Diabetes: Annual GFR (Glomerular Filtration Rate) 06/20/2025 06/20/2024, 04/10/2024, 04/10/2010 Hypertension/CHF/CAD Annual BMP Blood Test 06/20/2025 06/20/2024, 04/10/2024, 04/10/2010 HIV Screening Completed 06/24/2010 Hepatitis C Screening Completed 06/24/2010 Pneumococcal Vaccine: Pediatrics (0 to 5 Years) and At-Risk Patients (6 to 49 Years) Aged Out 04/23/2014 No longer eligible based on patient's age to complete this topic HIB Vaccines Aged Out No longer eligi [...] Procedure Name Priority Date/Time Associated Diagnosis Comments TRANSTHORACIC ECHOCARDIOGRAM (TTE) COMPLETE W/ CONTRAST Routine 09/25/2024 3:21 PM EDT Aneurysm of ascending aorta without rupture (CMS/HCC V24) COMPREHENSIVE METABOLIC PANEL STAT 06/20/2024 12:30 AM EDT HM HEPATITIS C SCREENING Routine 06/24/2010 HM HIV SCREENING Routine 06/24/2010 LIPID PANEL Routine 04/10/2010 from Last 3 Months or Most Recently Relevant to Health Maintenance Results * (ABNORMAL) TRANSTHORACIC ECHOCARDIOGRAM (TTE) COMPLETE W/ CONTRAST (09/25/2024 3:21 PM EDT) Left Atrium Minor Sheldon 5.7 cm CV PACS Left Atrium Major Sheldon 6.0 cm CV PACS LA Area Sys (A2C) 22 cm2 CV PACS LA Area Sys (A4C) 24 cm2 CV PACS LA Volume (BP) 73 mL CV PACS LV EDV (A4C) 156 mL CV PACS LV ESV (A4C) 72 mL CV PACS IVSD 1.3(A) 0.6 - 1.0 cm CV PACS LVIDD 4.5 4.2 - 5.8 cm CV PACS LVIDS 3.8 2.5 - 4.0 cm CV PACS LVOT Diameter 1.7 cm CV PACS LVOT Mean Grad 2 mmHg CV PACS LVOT Peak VTI 17.3 cm CV PACS LVOT Mean Jero 0.6 m/s CV PACS LVOT Peak Jero 0.9 m/s CV PACS LVOT Peak Gradient 3 mmHg CV PACS LVPWD 1.1(A) 0.6 - 1.0 cm CV PACS MV E' Tissue Velocity Lateral 16 cm/s CV PACS MV E' Tissue Velocity Septal 8 cm/s CV PACS Ejection Fraction (A4C) 54 % CV PACS LVOT Area 2.3 cm2 CV PACS LVOT Stroke Volume 39 mL CV PACS RA Area 16.5 cm2 CV PACS RA 2D Volume 39 mL CV PACS AV Mean Gradient 8 mmHg CV PACS Ao VTI 36.8 cm CV PACS AV Peak Jero 1.9 m/s CV PACS AV Peak Gradient 14 mmHg CV PACS AV Area Continuity Equation 1.1 cm2 CV PACS AV Area Peak Velocity 1.1 cm2 CV PACS Aortic Sinus Valsalva 3.3 cm CV PACS Ascending Aorta 4.6 cm CV PACS E Wave Deceleration Time 151 119 - 242 ms CV PACS MV Peak A Jero 0.78 m/s CV PACS MV Peak E Jero 1.03 m/s CV PACS MV Mean Gradient 2 mmHg CV PACS MV Mean Gradient 2 mmHg CV PACS MV Mean Gradient 2 mmHg CV PACS MV VTI 30.6 cm CV PACS Mitral Valve Max Velocity 1.1 m/s CV PACS MV Peak Gradient 5 mmHg CV PACS MV Area Continuity Equation 1.3 cm2 CV PACS PV Acceleration Time 130 ms CV PACS PV Acceleration Time 130 ms CV PACS RV S' 15 cm/s CV PACS TAPSE 20 mm CV PACS TR Peak Velocity 1.81 m/s CV PACS TR Peak Gradient 13 mmHg CV PACS E/E' Ratio Septal 13 CV PACS E/E' Ratio Averaged 10 CV PACS Relative Wall Thickness ratio 0.49 CV PACS LVOT:AV VTI Index 0.47 CV PACS FS 16 % CV PACS LV Mass 2D 198 g CV PACS MV VTI:LVOT VTI ratio 1.8 CV PACS LVOT flow 136 mL/s CV PACS AV Velocity Ratio 0.47 CV PACS E/A Ratio 1.3 CV PACS E/E' Ratio Lateral 6 CV PACS BSA 2.49 m2 CV PACS LV EDV Index (A4C) 65 mL/m2 CV PACS LV ESV Index (A4C) 30 mL/m2 CV PACS LA Volume Index (BP) 30 mL/m2 CV PACS LVIDD Index 1.87 cm/m2 CV PACS LVIDS Index 1.58 cm/m2 CV PACS LV Mass Index 2D 82 50 - 102 g/m2 CV PACS LVOT Stroke Index 16 mL/m2 CV PACS RA 2D Volume Index 16(A) 18 - 32 mL/m2 CV PACS CED Index (VTI) 0.44 cm2/m2 CV PACS CED Index (Pk Jero) 0.46 cm2/m2 CV PACS Ascending Aorta Index 1.91 cm/m2 CV PACS Anatomical Region Laterality Modality Ultrasound Narrative 09/27/2024 10:11 AM EDT Image quality was poor. The contrast images would suggest low normal LV systolic function without wall motion abnormalities. Probably normal right ventricular function. The atria appear to be normal. No significant valvular abnormalities as seen on limited views. Dilated ascending aorta at 4.6 cm. Normal aorta at the sinuses of Valsalva at 3.3 cm. No prior echo for comparison. Left Ventricle Left ventricle was not well visualized. Left ventricle cavity size is normal. There is mild concentric hypertrophy. Systolic function is low normal with an ejection fraction of 50-55%. Simpsons Biplane at 52% ejection fraction from Apical Four chamber view. There are no regional LV wall motion abnormalities. There is no diastolic dysfunction. Right Ventricle Right ventricle was not well visualized. Systolic function is normal. Left Atrium Left atrium cavity size is normal. Right Atrium Right atrium cavity is normal. IVC/SVC Inferior vena cava was not well visualized. Mitral Valve The leaflets are mildly thickened. There is trace regurgitation. There is no evidence of mitral valve stenosis. Tricuspid Valve Tricuspid valve structure is normal. There is trace regurgitation. There is no evidence of tricuspid valve stenosis. Aortic Valve The aortic valve is trileaflet. The leaflets are mildly thickened. There is no significant regurgitation. There is no evidence of aortic valve stenosis. Pulmonic Valve Visualized portions of the pulmonic valve appear normal. No significant pulmonic valve regurgitation. There is no evidence of pulmonic valve stenosis. Ascending Aorta The Sinus of Valsalva is (3.3 cm). The ascending aorta is (4.6 cm). Pericardium Pericardium appears normal. There is no pericardial effusion. Study Details Overall the study quality was technically difficult. Definity contrast was given to enhance imaging. Study was difficult due to: poor endocardial visualization. us Richard Santos MD CV ECHO PROCEDURES Final Resul t * (ABNORMAL) Comprehensive metabolic panel (06/20/2024 12:30 AM EDT) Sodium 134 133 - 145 mmol/L LAB CHEMISTRY METHOD 06/20/2024 1:15 AM EDT [facility] Potassium 3.8 3.5 - 5.5 mmol/L LAB CHEMISTRY METHOD 06/20/2024 1:15 AM EDT [facility] Chloride 100 96 - 110 mmol/L LAB CHEMISTRY METHOD 06/20/2024 1:15 AM T [facility] CO2 29 21 - 32 mmol/L LAB CHEMISTRY METHOD 06/20/2024 1:15 AM [facility] Anion Gap 5 3 - 11 LAB CHEMISTRY METHOD 06/20/2024 1:15 AM [facility] Glucose 342(H) 70 - 100 mg/dL LAB CHEMISTRY METHOD 06/20/2024 1:15 AM [facility] BUN 11 5 - 25 mg/dL LAB CHEMISTRY METHOD 06/20/2024 1:15 AM [facility] Creatinine 0.82 0.70 - 1.30 mg/dL LAB CHEMISTRY METHOD 06/20/2024 1:15 AM [facility] eGFR 108 >=60 mL/min/1. 73m2 LAB CHEMISTRY METHOD 06/20/2024 1:15 AM [facility] Comment:Calculation based on the Chronic Kidney Disease Epidemiology Collaboration (CKD-EPI) equation refit without adjustment for race. BUN/Creatinine Ratio 13.4 LAB CHEMISTRY METHOD 06/20/2024 1:15 AM [facility] Calcium 9.0 8.5 - 10.5 mg/dL LAB CHEMISTRY METHOD 06/20/2024 1:15 AM [facility] AST (SGOT) 23 10 - 42 unit/L LAB CHEMISTRY METHOD 06/20/2024 1:15 AM [facility] ALT (SGPT) 29 10 - 60 unit/L LAB CHEMISTRY METHOD 06/20/2024 1:15 AM [facility] Alkaline Phosphatase 117 42 - 121 unit/L LAB CHEMISTRY METHOD 06/20/2024 1:15 AM [facility] Total Protein 7.0 6.0 - 8.0 g/dL LAB CHEMISTRY METHOD 06/20/2024 1:15 AM [facility] Albumin 3.6 3.2 - 5.0 g/dL LAB CHEMISTRY METHOD 06/20/2024 1:15 AM [facility] Total Bilirubin 0.4 0.0 - 1.4 mg/dL LAB CHEMISTRY METHOD 06/20/2024 1:15 AM EDT [facility] Blood Venous blood specimen / Unknown Venipuncture / Unknown 06/20/2024 12:30 AM EDT 06/20/2024 12:40 AM EDT Jr Guzman MD LAB BLOOD ORDERABLES Final Resu lt [facility] ([facility] [address] [place] [address], * HIV Screening (06/24/2010) HIV Screening ABSTRACTED Historical Provider HEALTH MAINTENANCE Final Result * Hepatitis C Screening (06/24/2010) Hepatitis C Screening ABSTRACTED Historical Provider HEALTH MAINTENANCE Final Result * (ABNORMAL) Lipid panel (04/10/2010) LDL/HDL Ratio 5(A) 0 - 4 Triglycerides 143 0 - 150 mg/dL Cholesterol 169 0 - 200 mg/dL HDL 32(A) >=40 mg/dL LDL Cholesterol 109(A) 0 - 100 mg/dL Blood Venous blood specimen / Unknown Result [facility] Historical [facility] LAB BLOOD ORDERABLES Estefani l Result from Last 3 Months or Most Recently Relevant to Health Maintenance Insurance [employer] Care Teams Payroll Examiner Relationship Specialty Start Date End Date Yadira Wilder MD [address] [place] [address] PCP - General Internal Medicine 04/10/24
--- OUTSIDE RECORDS SUMMARY | 2024-10-04 10:32 | XMS_ITS | Clinical Summary ---
Author Organization [facility], Address [address] [place] [address] [place] [address] Phone Care Team Providers Care Hide Stretcher Hand Name Role Phone Yadira Wilder MD Primary Care Provider [phone] Allergies No known active allergies Medications amLODIPine [...] Colorectal Cancer Screening: Sigmoidoscopy 2024 Influenza Vaccine (#1) 2024 Insurance Care Teams Hide Stretcher Hand Relationship Specialty Start Date End Date Yadira Wilder MD [address] [place] [phone] PCP - General Internal Medicine 01/10/20
== END 2024-10-04 10:46 | disposition home or self-care (01) ==
LOC: HO.HCS 10:00
PROVIDERS: PCP Internal Medicine; Visit Provider Internal Medicine Cardiovascular Disease
DX: R07.89 Other chest pain (principal); I71.21 Aneurysm of the ascending aorta, without rupture
CPT/HCPCS: 93010; 99204; G2211

== ENCOUNTER → 2024-10-04 09:59 | Outpatient (BNVA) | payer OTHER, SELFPAY | PROVIDERS: PCP Internal Medicine; Visit Provider Internal Medicine Cardiovascular Disease | DX: R07.89 Other chest pain (principal); I71.21 Aneurysm of the ascending aorta, without rupture | CPT/HCPCS: 93005 ==

== ENCOUNTER 2024-11-07 11:43 | Outpatient (AMB) | payer OTHER, SELFPAY ==
--- NOTE | 2024-11-07 11:45 | A.OFFPC_ITS ---
Vital Signs 11/07/24 11:49 Height 5 ft 11 in Weight 272 lb BMI 37.9 BP 122/80 Blood Pressure Location Lt brachial Position Sitting Pulse 69 Pulse Source Pulse Oximeter Pulse Oximetry (%) 98 Intake Visit Reasons: Annual P.E Allergies No Known Allergies Allergy (Verified 11/07/24 11:53) Medication List - Last Reconciled 11/07/24 by Yadira Wilder MD amlodipine 10 mg PO DAILY 90 days aspirin 81 mg PO DAILY atorvastatin (Lipitor) 40 mg PO DAILY bisacodyl (Dulcolax (bisacodyl)) 10 mg (2 x 5 mg) PO BEDTIME blood sugar diagnostic (FreeStyle Lite Strips) USE TO CHECK BLOOD SUGARS THREE TIMES DAILY AND IF SYMPTOMATIC WITH HYPO/HYPERGLYCEMIA cholecalciferol (vitamin D3) 25 mcg PO DAILY 90 days citalopram 40 mg PO DAILY clobetasol 0.05% 1 appl topical BEDTIME docusate sodium 100 mg PO DAILY dulaglutide 3 mg (0.5 mL) subcut QWEEK 30 days famotidine 40 mg PO DAILY FreeStyle Soniya 3 [place] (blood-glucose,forest technology professor,cont) As directed NS FreeStyle Soniya 3 Sensor (blood-glucose sensor) As directed NS gabapentin 300 mg PO BID glipizide 10 mg PO BID 90 days insulin glargine U-300 conc 60 units (0.2 mL) subcut BID 90 days insulin lispro (Humalog KwikPen (U-100) Insulin) 10 units (0.1 mL) subcut TID lancets (FreeStyle Lancets) Use to check blood sugars three times daily and if symptomatic with hypo/hyperglycemia meclizine 25 mg PO BID PRN methylcellulose (laxative) (Citrucel) 500 mg PO DAILY nystatin 1 appl topical DAILY 30 days ondansetron 4 mg PO Q8H PRN pantoprazole 40 mg PO QAM pen needle, diabetic (Easy Comfort Pen [place]) Once at night polyethylene glycol 3350 (Miralax) 17 grams PO DAILY Tobacco use date assessed: 07/14/24 Dental Screening Dental Screen Date: 07/14/24 HPI Annual P.E HPI Details Physical exam appointment The patient is a 49-year-old male presenting with the management of diabetes and evaluation of rash. Type 2 Diabetes Mellitus: - The patient's most recent Hemoglobin A 1c is 8.2, improved from the previous record of 8.4 in June. - Current medications include Trulicity, glipizide, and insulin, along with a sliding scale insulin regimen. Abdominal Dermatitis: - The patient reports multiple pimples i n a patterned cluster located around the waistline, with symptoms of itching, pain, burning, and a noticeable smell. - recurrent problem. Peripheral Neuropathy: - Managed with gabapentin 300 mg twice d aily. - The patient does not report drowsiness as a side effect. Descending Thoracic Aortic Aneurysm: - The aneurysm measures 4.7 cm; surgical intervention is considered if it increases to 4.9 or 5 cm. Chronic Smoking: - The patient reports beginning smoking at age 18 and has a history of smoking marijuana. - Expresses concern about potential risk for various cancers, and has a persist ent cough. Medical History: - Type 2 Diabetes Mellitus - Hypertension - Hyperlipidemia - Obesity - Peripheral Neuropathy - Chronic Smoking Social History: - Reports smoking tobacco since the age of 18. - Recent weight recorded at 272 lbs, wit h a history of typically weighing around 300 lbs. - Attempts to lose weight through dietar y changes without recent success. - Actively avoids candy and excessive sn acks. Health Maintenance - Advised to schedule a colonoscopy, not completed properly in past due to poor preparation. - Encouraged cessation of smoking to red uce health risks. - Encouraged undergoing routine blood te sts three times a year due to medication and diabetes. [place] of Care - Care provided by mid level clinician Al dave - Recently began consultations with a ca rdiologist for descent aortic aneurysm. Medications - Amlodipine for hypertension - Aspirin for cardiovascular risk reduct ion - Atorvastatin for hyperlipidemia - Vitamin D supplementation - Citalopram - Trulicity, adjusted from 3 mg to 4.5 m g for diabetes management - Famotidine - Gabapentin 300 mg, twice daily for rob ropathy - Glipizide 10 mg, twice daily for diabe levy management - Insulin 60 units, with sliding scale f or diabetes management. Patient Instructions - Increase Trulicity dosage to 4.5 mg wh en current supply is exhausted. - Take doxycycline for 5 days to address rash, save remaining tablets for potential future occurrences. - Ensure skin is dried thoroughly with a hairdryer post-shower and apply prescribed powder. - Schedule and undergo a laboratory bloo d test. - stopped smoking - stopped drinking alcohol if possible Follow-up 3 months, gabapentin will be filled at visits only Review of Systems - General: No fever no chills - Neurological: No headaches no dizzin ess - Ear nose throat: No sore throat no hearing difficulty no ear pain - Cardiovascular: No syncope, no chest pain, no palpitations - Gastrointestinal: No nausea vomiting or diarrhea - Endocrine: No polyuria polydipsia no heat intolerance - Genitourinary: No dysuria - Skin: No new complaints Physical Exam General: Cooperative, healthy appearing, comfortable, no acute distress Orientation: Patient oriented x3 Head: Normal to inspection Ears: Within normal limit visually Nose: Normal external nose present Face and sinus: Normal facial exam Eyes: Appearance normal, extraocular movement intact pupils reactive Neck: Normal visual inspection and supple Respiratory: Normal respiratory effort and able to speak in complete sentences. Clear to auscultation, no stridor Cardiovascular: S1 and S2 RRR GI: Normal to inspection. 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 Range of motion intact [facility] Medical History Ascending aortic aneurysm Paresthesias Depression Anxiety Neck pain Hypersomnia Snoring Obstructive sleep apnea Herpes simplex type 1 antibody positive Lumbar pain Hip pain, right Microalbuminuria Diabetic nephropathy Restless leg syndrome Vitamin D deficiency Chronic GERD Depression, major, recurrent Hypertension, essential Lipid disorder Diabetes 1.5, managed as type 2 Surgical History History of esophagogastroduodenoscopy (EGD) Hx of colonoscopy H/O knee surgery No pertinent past surgical history Family History Father Stroke Diabetes mellitus Kidney disease Mother HTN (hypertension) Brother No problems noted. Sister No problems noted. Sister No problems noted. Sister No problems noted. Social History Housing: Apartment Alcohol intake: current Alcohol intake frequency: 3 or more drinks per day [place] type: hard liquor Patient Tobacco Use Status: Former Tobacco user Cigarettes Per Day: 1 e-Cigarette/Vaping Use: Currently Using Substance Use Type: Marijuana Current occupational status: employed Cognitive needs: No Hearing needs: No Vision needs: Yes Questionnaire PHQ-9 Over the last 2 weeks, how often have you been bothered by any of the following problems? 1. Little interest or pleasure in doing things: several days 2. Feeling down, depressed, or hopeless: several days 3. Trouble falling or staying asleep, or sleeping too much: several days 4. Feeling tired or having little energy: several days 5. Poor appetite or overeating: several days 6. Feeling bad about yourself - or that you are a failure or have let yourself or your family down: not at all 7. Trouble concentrating on things, such as reading the newspaper or watching television: several days 8. Moving or speaking so slowly that other people could have noticed. Or the opposite - being so fidgety or restless that you have been moving around a lot more than usual: several days 9. Thoughts that you would be better off or of hurting yourself in some way: not at all Total score: 7 Depression Screening Interpretation: Positive Depression Screening Follow-up: Existing condition and In treatment Depression Screening Done: Yes 25841 - PHQ-9 Billing: Yes Source: Developed by Drs. Bakari Escobedo, Shireen Riley, Luis Leo and colleagues, with an educational janay from [employer]. Thrive Questionnaire Date Thrive assessed: 11/07/24 I am a: Patient What is your living situation today?: I have a steady place to live Within the past 12 months, did the food you bought not last and you didn't have the money to get more?: Sometimes True Within the past 12 months, did you worry whether your food would run out before you got money to buy more?: Sometimes True Do you have trouble paying for medicines?: Yes Do you have trouble getting transportation to medical appointments?: No Do you have trouble paying your heating and electricity bill?: No Do you have trouble taking care of your child, family member or friend?: No Do you have trouble with day-to-day activities such as bathing, preparing meals, shopping, managing finances, etc.?: No Are you currently unemployed and looking for a job?: No Are you interested in more education?: No Please select the resources that you would like help with: None Currently or been in a relationship where the following occur: No concerns reported THRIVE Score: 2 AUDIT C Alcohol Use Questionnaire (AUDIT-C) 1. How often do you have a drink containing alcohol?: 2-3 times a week 2. How many drinks containing alcohol do you have on a typical day when you are drinking?: 3 or 4 3. How often do you have six or more drinks on one occasion?: Monthly Total Score: 6 Score Reviewed/Action Taken: Yes ELIZABETH-7 AMB Questionnaire ELIZABETH-7 Date ELIZABETH - 7 assessed: 05/16/24 Feeling nervous, anxious, or on edge: 1 = Several days Not being able to stop or control worryin = Several days Worrying too much about different things: 1 = Several days Trouble relaxin = Several days Being so restless that it is hard to sit still: 2 = More than half the days Becoming easily annoyed or irritable: 1 = Several days Feeling afraid as if something awful might happen: 0 = Not at all Total ELIZABETH-7 score (0-4 normal; 5-9 mild; 10-14 moderate; 15-21 severe): 7 Source: Developed by Drs. Bakari Escobedo, Shireen Riley, Luis Leo and colleagues, with an educational janay from [employer]. Physical exam (Primary Care) Vital Signs: Last Vital Signs Pulse 69 11/07/24 11:49 BP 122/80 11/07/24 11:49 Pulse Ox 98 11/07/24 11:49 BMI result Body Mass Index 37.9 Tobacco/Smoking Status: Tobacco use Status Tobacco use date assessed 07/14/24 11/07/24 11:46 Patient Tobacco Use Status Former Tobacco user 11/07/24 11:46 e-Cigarette/Vaping Use Currently Using 11/07/24 11:46 Are you ready to quit: Yes Tobacco cessation counseling provided: Yes Relapse Prevention: discussed the importance of a supportive environment and discussed dietary, exercise and/or lifestyle changes CPT code: 79847 - 4-10 Minutes PHQ-9: PHQ-9 Score PHQ-9: Total score 7 11/07/24 11:53 Depression Screening Interpretation: Positive Depression Screening Follow-up: Existing condition and In treatment Thrive Assessment: Date of Thrive Assessment Date Thrive assessed 11/07/24 11/07/24 11:46 Currently or been in a relationship where the following occur: No concerns reported Coding Level of Care Code Est Pt Level 4 (25767) Est Pt Prev Care 40-64y(11818) Diagnoses Encounter for general adult medical examination with abnormal findings Z00.01 Restless leg syndrome G25.81 Diabetic polyneuropathy associated with type 2 diabetes mellitus E11.42 Diabetes mellitus complication detail: diabetic polyneuropathy Diabetes mellitus type: type 2 Microalbuminuria R80.9 Diabetic nephropathy associated with type 2 diabetes mellitus E11.21 Diabetes mellitus type: type 2 Chronic GERD K21.9 Vitamin D deficiency E55.9 Class 2 severe obesity due to excess calories with serious comorbidity and body mass index (BMI) of 39.0 to 39.9 in adult E66.812; E66.01; Z68.39 Body mass index: BMI 39.0-39.9 Obesity classification: adult class 2 (BMI 35 - 39.9) Serious obesity comorbidity presence: with serious comorbidity Insulin long-term use Z79.4 Lipid disorder E78.9 Hypertension, essential I10 Recurrent major depressive disorder, in partial remission F33.41 Active/Remission status: in partial remission Possible alcohol use disorder on screening for alcoholism Z13.39 Additional Codes Vital Signs *Quality* - CPT code: 55095 - 4-10 Minutes ([id number]) PHQ-9 - 49707 - PHQ-9 Billing: Yes ([id number]) Assessment & Plan Assessment & Plan (1) Encounter for general adult medical examination with abnormal findings: Code(s): Z00.01 - Encounter for general adult medical examination with abnormal findings Category: Medical (2) Restless leg syndrome: Code(s): G25.81 - Restless legs syndrome Category: Medical (3) Diabetic neuropathy: Code(s): E11.40 - Type 2 diabetes mellitus with diabetic neuropathy, unspecified Category: Medical Qualifiers: Diabetes mellitus complication detail: diabetic polyneuropathy Diabetes mellitus type: type 2 Qualified Code(s): E11.42 - Type 2 diabetes mellitus with diabetic polyneuropathy (4) Microalbuminuria: Code(s): R80.9 - Proteinuria, unspecified Category: Medical (5) Diabetic nephropathy: Code(s): E11.21 - Type 2 diabetes mellitus with diabetic nephropathy Category: Medical Qualifiers: Diabetes mellitus type: type 2 Qualified Code(s): E11.21 - Type 2 diabetes mellitus with diabetic nephropathy (6) Chronic GERD: Code(s): K21.9 - Gastro-esophageal reflux disease without esophagitis Category: Medical (7) Vitamin D deficiency: Code(s): E55.9 - Vitamin D deficiency, unspecified Category: Medical (8) Obesity due to excess calories: Code(s): E66.09 - Other obesity due to excess calories Category: Medical Qualifiers: Body mass index: BMI 39.0-39.9 Obesity classification: adult class 2 (BMI 35 - 39.9) Serious obesity comorbidity presence: with serious comorbidity Qualified Code(s): E66.812 - Obesity, class 2; E66.01 - Morbid (severe) obesity due to excess calories; Z68.39 - Body mass index [BMI] 39.0-39.9, adult (9) Insulin long-term use: Code(s): Z79.4 - terminal carman (current) use of insulin Category: Medical (10) Lipid disorder: Code(s): E78.9 - Disorder of lipoprotein metabolism, unspecified Category: Medical (11) Hypertension, essential: Code(s): I10 - Essential (primary) hypertension Category: Medical (12) Depression, major, recurrent: Code(s): F33.9 - Major depressive disorder, recurrent, unspecified Category: Medical Qualifiers: Active/Remission status: in partial remission Qualified Code(s): F33.41 - Major depressive disorder, recurrent, in partial remission (13) Possible alcohol use disorder on screening for alcoholism: Comment: CONSEQUENCES OF DRINKING PROBLEMS There are a number of serious consequences of drinking alcohol excessively -------Excessive alcohol consumption is a leading preventable cause of in the [place]. --------Drinking alcohol increases the risk of traffic accidents, suicide, drowning, and other serious injuries. -------Alcohol use continues to be the leading cause of injuries treated in trauma centers and emergency departments . --------Alcohol-related liver disease may lead to end-stage liver disease (cirrhosis) and . --------Alcohol increases the risk of certain cancers of the mouth, esophagus, throat, liver, and breast. Code(s): Z13.39 - Encounter for screening examination for other mental health and behavioral disorders Category: Medical Plan Physical exam appointment The patient is a 49-year-old male presenting with the management of diabetes and evaluation of rash. History of abdominal aortic aneurysm, obesity, marijuana smoking cigarette smoking Diabetes, suppurativa hidradenitis, tinea corporis, peripheral neuropathy, lipid disorder Type 2 Diabetes Mellitus: - The patient's most recent Hemoglobin A1c is 8.2, improved from the previous record of 8.4 in June. - Current medications include Trulicity, glipizide, and insulin, along with a sliding scale insulin regimen. Abdominal Dermatitis: - The patient reports multiple pimples in a patterned cluster located around the waistline, with symptoms of itching, pain, burning, and a noticeable smell. - recurrent problem. Peripheral Neuropathy: - Managed with gabapentin 300 mg twice daily. - The patient does not report drowsiness as a side effect. Descending Thoracic Aortic Aneurysm: - The aneurysm measures 4.7 cm; surgical intervention is considered if it increases to 4.9 or 5 cm. Chronic Smoking: - The patient reports beginning smoking at age 18 and has a history of smoking marijuana. - Expresses concern about potential risk for various cancers, and has a persistent cough. Medical History: - Type 2 Diabetes Mellitus - Hypertension - Hyperlipidemia - Obesity - Peripheral Neuropathy - Chronic Smoking Social History: - Reports smoking tobacco since the age of 18. - Recent weight recorded at 272 lbs, with a history of typically weighing around 300 lbs. - Attempts to lose weight through dietary changes without recent success. - Actively avoids candy and excessive snacks. Health Maintenance - Advised to schedule a colonoscopy, not completed properly in past due to poor preparation. - Encouraged cessation of smoking to reduce health risks. - Encouraged undergoing routine blood tests three times a year due to medication and diabetes. [place] of Care - Care provided by mid level clinician Temi - Recently began consultations with a toby maker for descent aortic aneurysm. Medications - Amlodipine for hypertension - Aspirin for cardiovascular risk reduction - Atorvastatin for hyperlipidemia - Vitamin D supplementation - Citalopram - Trulicity, adjusted from 3 mg to 4.5 mg for diabetes management - Famotidine - Gabapentin 300 mg, twice daily for neuropathy - Glipizide 10 mg, twice daily for diabetes management - Insulin 60 units, with sliding scale for diabetes management. Patient Instructions - Increase Trulicity dosage to 4.5 mg when current supply is exhausted. - Take doxycycline for 5 days to address rash, save remaining tablets for potential future occurrences. - Ensure skin is dried thoroughly with a hairdryer post-shower and apply prescribed powder. - Schedule and undergo a laboratory blood test. - stopped smoking - stopped drinking alcohol if possible Follow-up 3 months, gabapentin will be filled at visits only Orders: Orders Comprehensive Met. Panel Today E11.21 - Type 2 diabetes mellitus with diabetic nephropathy, E11.42 - Type 2 diabetes mellitus with diabetic polyneuropathy, E55.9 - Vitamin D deficiency, unspecified, E66.01 - Morbid (severe) obesity due to excess calories, E66.812 - Obesity, class 2, E78.9 - Disorder of lipoprotein metabolism, unspecified, F33.41 - Major depressive disorder, recurrent, in partial remission, G25.81 - Restless legs syndrome, I10 - Essential (primary) hypertension, K21.9 - Gastro-esophageal reflux disease without esophagitis, R80.9 - Proteinuria, unspecified, Z00.01 - Encounter for general adult medical examination with abnormal findings, Z68.39 - Body mass index [BMI] 39.0-39.9, adult, Z79.4 - [facility] (current) use of insulin Vitamin D 25-OH (D2 and D3) Today E11.21 - Type 2 diabetes mellitus with diabetic nephropathy, E11.42 - Type 2 diabetes mellitus with diabetic polyneuropathy, E55.9 - Vitamin D deficiency, unspecified, E66.01 - Morbid (severe) obesity due to excess calories, E66.812 - Obesity, class 2, E78.9 - Disorder of lipoprotein metabolism, unspecified, F33.41 - Major depressive disorder, recurrent, in partial remission, G25.81 - Restless legs syndrome, I10 - Essential (primary) hypertension, K21.9 - Gastro-esophageal reflux disease without esophagitis, R80.9 - Proteinuria, unspecified, Z00.01 - Encounter for general adult medical examination with abnormal findings, Z68.39 - Body mass index [BMI] 39.0-39.9, adult, Z79.4 - terminal carman (current) use of insulin Microalbumin, Random (w Creat) Today E11.21 - Type 2 diabetes mellitus with diabetic nephropathy, E11.42 - Type 2 diabetes mellitus with diabetic polyneuropathy, E55.9 - Vitamin D deficiency, unspecified, E66.01 - Morbid (severe) obesity due to excess calories, E66.812 - Obesity, class 2, E78.9 - Di sorder of lipoprotein metabolism, unspecified, F33.41 - Major depressive disorder, recurrent, in partial remission, G25.81 - Restless legs syndrome, I10 - Essential (primary) hypertension, K21.9 - Gastro-esophageal reflux disease without esophagitis, R80.9 - Proteinuria, unspecified, Z00.01 - Encounter for general adult medical examination with abnormal findings, Z68.39 - Body mass index [BMI] 39.0-39.9, adult, Z79.4 - [facility] (current) use of insulin Complete Blood Count Auto Diff Today E11.21 - Type 2 diabetes mellitus with diabetic nephropathy, E11.42 - Type 2 diabetes mellitus with diabetic polyneuropathy, E55.9 - Vitamin D deficiency, unspecified, E66.01 - Morbid (severe) obesity due to excess calories, E66.812 - Obesity, class 2, E78.9 - Disorder of lipoprotein metabolism, unspecified, F33.41 - Major depressive disorder, recurrent, in partial remission, G25.81 - Restless legs syndrome, I10 - Essential (primary) hypertension, K21.9 - Gastro-esophageal reflux disease without esophagitis, R80.9 - Proteinuria, unspecified, Z00.01 - Encounter for general adult medical examination with abnormal findings, Z68.39 - Body mass index [BMI] 39.0-39.9, adult, Z79.4 - [facility] (current) use of insulin LDL Cholesterol Direct Today E11.21 - Type 2 diabetes mellitus with diabetic nephropathy, E11.42 - Type 2 diabetes mellitus with diabetic polyneuropathy, E55.9 - Vitamin D deficiency, unspecified, E66.01 - Morbid (severe) obesity due to excess calories, E66.812 - Obesity, class 2, E78.9 - Disorder of lipoprotein metabolism, unspecified, F33.41 - Major depressive disorder, recurrent, in partial remission, G25.81 - Restless legs syndrome, I10 - Essential (primary) hypertension, K21.9 - Gastro-esophageal reflux disease without esophagitis, R80.9 - Proteinuria, unspecified, Z00.01 - Encounter for general adult medical examination with abnormal findings, Z68.39 - Body mass index [BMI] 39.0-39.9, adult, Z79.4 - [facility] (current) use of insulin TSH reflex Free T4 Today E11.21 - Type 2 diabetes mellitus with diabetic nephropathy, E11.42 - Type 2 diabetes mellitus with diabetic polyneuropathy, E55 .9 - Vitamin D deficiency, unspecified, E66.01 - Morbid (severe) obesity due to excess calories, E66.812 - Obesity, class 2, E78.9 - Disorder of lipoprotein metabolism, unspecified, F33.41 - Major depressive disorder, recurrent, in partial remission, G25.81 - Restless legs syndrome, I10 - Essential (primary) hypertension, K21.9 - Gastro-esophageal reflux disease without esophagitis, R80.9 - Proteinuria, unspecified, Z00.01 - Encounter for general adult medical examination with abnormal findings, Z68.39 - Body mass index [BMI] 39.0-39.9, adult, Z79.4 - [facility] (current) use of insulin Medications: New doxycycline hyclate 100 mg PO BID 30 caps 0RF nystatin 1 appl topical DAILY 60 grams 2RF 30 days B35.4 - Tinea corporis Changed From dulaglutide 3 mg (0.5 mL) subcut QWEEK 30 days 2.5 mL 2RF To dulaglutide 4.5 mg (0.5 mL) subcut QWEEK 2.5 mL 2RF 30 days Refilled gabapentin 300 mg PO BID 180 caps 0RF
[2024-11-07 11:49] VITALS: BP 122/80; PULSE 69; O2SAT 98; BMI 37.9
--- OUTSIDE RECORDS SUMMARY | 2024-11-07 14:16 | XMS_ITS | Clinical Summary ---
Author Organization [facility] Address [address] [place] [address] Phone Care Team Providers Care Lever Tender Name Role Phone Yadira Wilder MD Primary Care Provider [phone] Allergies No known active allergies Medications amitriptyline (ELAVIL) 25 mg tablet Take 1 tablet (25 mg total) by mouth at bedtime. Active Active Problems Problem Noted Date Diagnosed Date Headache 04/09/2010 Encounters Date Type Department Care Team Description 09/25/2024 2:30 PM EDT Ancillary Procedure [facility] [address] [facility] [address] [place] [address] Aneurysm of ascending aorta without rupture ([facility] V24) from Last 3 Months Immunizations Name Administration Dates Next Due Tdap Tetanus diptheria acell ular pertussis (Boostrix; Adacel) 7yo and older 06/24/2010 Surgical History Surgery Date Site/Laterality Comments KNEE SURGERY PROCEDURE: HISTORICAL KNEE SURGERY; COMMENT: meniscal repair , arthroscopic, Dr. Clements Medical History Medical History Date Comments Diabetes mellitus (CMS/HCC V24, CMS/HCC V28) Family History Relation Name Status Comments Father Alive [place] in late 30's , dm, CHF Mother [...] 09/25/2024 3:20 PM EDT Plan of Treatment Health Maintenance Due Date Last Done Comments Diabetes: Annual Foot Exam 1985 Diabetes: Annual Retina Eye Exam 1985 Hepatitis B Vaccines (1 of 3 - 19+ 3-dose series) 1994 DTaP,Tdap,and Td Vaccines (3 - Td or Tdap) 08/20/2021 08/21/2011, 06/24/2010 Cholesterol Screening (Lipid Panel) 02/01/2022 04/10/2010 Colorectal Cancer Screening: Colonoscopy 02/01/2022 Social Influencers of Health Screening 02/01/2022 Depression Screening 03/01/2024 Diabetes: Annual Urine Albumin-Creatinine Ratio (uACR) 04/11/2024 Diabetes: Blood Sugar Control Test (HGBA1C) 04/11/2024 COVID-19 Vaccine ( season) 2024 07/05/2020, 06/14/2020 Influenza Vaccine (#1) 2024 , 11/14/2019, 01/31/2018, [...] METABOLIC PANEL STAT 06/20/2024 12:30 AM EDT HEPATITIS C SCREENING Routine 06/24/2010 HIV SCREENING Routine 06/24/2010 LIPID PANEL Routine 04/10/2010 from Last 3 Months or Most Recently Relevant to Health Maintenance Results * (ABNORMAL) TRANSTHORACIC ECHOCARDIOGRAM (TTE) COMPLETE W/ CONTRAST (09/25/2024 3:21 PM EDT) Left Atrium Minor [place] 5.7 cm CV PACS Left Atrium Major [place] 6.0 cm CV PACS LA Area Sys [...] mmol/L LAB CHEMISTRY METHOD 06/20/2024 1:15 AM [facility] Potassium 3.8 3.5 - 5.5 mmol/L LAB CHEMISTRY METHOD 06/20/2024 1:15 AM [facility] Chloride 100 96 - 110 mmol/L LAB CHEMISTRY METHOD 06/20/2024 1:15 AM [facility] CO2 29 21 - 32 mmol/L LAB CHEMISTRY METHOD 06/20/2024 1:15 AM [facility] Anion Gap 5 3 - 11 LAB CHEMISTRY METHOD 06/20/2024 1:15 AM [facility] Glucose 342(H) 70 - 100 mg/dL LAB CHEMISTRY METHOD 06/20/2024 1:15 AM [facility] BUN 11 5 - 25 mg/dL LAB CHEMISTRY METHOD 06/20/2024 1:15 AM [facility] Creatinine 0.82 0.70 - 1.30 mg/dL LAB CHEMISTRY METHOD 06/20/2024 1:15 AM [facility] eGFR 108 >=60 mL/min/1. 73m2 LAB CHEMISTRY METHOD 06/20/2024 1:15 AM [facility] Comment:Calculation based on the Chronic Kidney Disease Epidemiology Collaboration (CKD-EPI) equation refit without adjustment for race. BUN/Creatinine Ratio 13.4 LAB CHEMISTRY METHOD 06/20/2024 1:15 AM [facility] Calcium 9.0 8.5 - 10.5 mg/dL LAB CHEMISTRY METHOD 06/20/2024 1:15 AM [facility] AST (SGOT) 23 10 - 42 unit/L LAB CHEMISTRY METHOD 06/20/2024 1:15 AM [facility] ALT (SGPT) 29 10 - 60 unit/L LAB CHEMISTRY METHOD 06/20/2024 1:15 AM [facility] Alkaline Phosphatase 117 42 - 121 unit/L LAB CHEMISTRY METHOD 06/20/2024 1:15 AM [facility] Total Protein 7.0 6.0 - 8.0 g/dL LAB CHEMISTRY METHOD 06/20/2024 1:15 AM [facility] Albumin 3.6 3.2 - 5.0 g/dL LAB CHEMISTRY METHOD 06/20/2024 1:15 AM [facility] Total Bilirubin 0.4 0.0 - 1.4 mg/dL LAB CHEMISTRY METHOD 06/20/2024 1:15 AM [facility] Blood Venous blood specimen / Unknown Venipuncture / Unknown 06/20/2024 12:30 AM EDT 06/20/2024 12:40 AM EDT Jr Guzman MD LAB BLOOD ORDERABLES Final Resu lt [facility] [address] [place] [address], * HIV Screening (06/24/2010) [facility] HIV Screening ABSTRACTED Historical Provider HEALTH MAINTENANCE [...] mg/dL Blood Venous blood specimen / Unknown us Historical Provider LAB BLOOD ORDERABLES Estefani l Result from Last 3 Months or Most Recently Relevant to Health Maintenance Insurance [employer] Care Teams Lever Tender Relationship Specialty Start Date End Date Yadira Wilder MD [address] [place] [address] PCP - General Internal Medicine 04/10/24
--- OUTSIDE RECORDS SUMMARY | 2024-11-07 14:16 | XMS_ITS | Clinical Summary ---
Author Organization [facility], Address [address] [place] [address] [place] [address] Phone Care Team Providers Care Tactical Intelligence Officer Name Role Phone Yadira Wilder MD Primary Care Provider [phone] Allergies No known active allergies Medications amLODIPine [...] Influenza Vaccine (#1) 2024 Insurance Care Teams Tactical Intelligence Officer Relationship Specialty Start Date End Date Yadira Wilder MD [address] [place] [address] [phone] PCP - General Internal Medicine 01/10/20
== END 2024-11-07 12:24 | disposition home or self-care (01) ==
LOC: HO.HMCC 11:44
PROVIDERS: PCP Internal Medicine; Visit Provider Internal Medicine
DX: Z00.01 Encounter for general adult medical examination with abnormal findings (principal); E11.21 Type 2 diabetes mellitus with diabetic nephropathy; E66.01 Morbid (severe) obesity due to excess calories; E11.42 Type 2 diabetes mellitus with diabetic polyneuropathy; Z79.4 Long term (current) use of insulin; Z68.39 Body mass index [BMI] 39.0-39.9, adult; G25.81 Restless legs syndrome; R80.9 Proteinuria, unspecified; K21.9 Gastro-esophageal reflux disease without esophagitis; E55.9 Vitamin D deficiency, unspecified; E78.9 Disorder of lipoprotein metabolism, unspecified

== ENCOUNTER → 2024-11-07 11:43 | Outpatient (BNVA) | payer OTHER, SELFPAY | PROVIDERS: PCP Internal Medicine; Visit Provider Internal Medicine | DX: Z00.01 Encounter for general adult medical examination with abnormal findings (principal); E11.42 Type 2 diabetes mellitus with diabetic polyneuropathy; E11.21 Type 2 diabetes mellitus with diabetic nephropathy; R21 Rash and other nonspecific skin eruption; L30.9 Dermatitis, unspecified; R05.3 Chronic cough; G25.81 Restless legs syndrome; R80.9 Proteinuria, unspecified; K21.9 Gastro-esophageal reflux disease without esophagitis; E55.9 Vitamin D deficiency, unspecified; E66.812 Obesity, class 2; E66.01 Morbid (severe) obesity due to excess calories; E78.9 Disorder of lipoprotein metabolism, unspecified; I10 Essential (primary) hypertension; F33.41 Major depressive disorder, recurrent, in partial remission; Z79.4 Long term (current) use of insulin; Z68.39 Body mass index [BMI] 39.0-39.9, adult | CPT/HCPCS: 83036; 96127 ==

== ENCOUNTER → 2024-11-24 09:37 | Outpatient (REF) | payer OTHER, SELFPAY ==
--- NOTE | ~2024-11-24 | NM_ITS ---
EXERCISE MYOCARDIAL PERFUSION STUDY INDICATION: Chest pain TECHNIQUE: The patient was brought in for an exercise perfusion study on 11/24/2024. Patient performed exercise as per Luis Antonio protocol and was injected 40 mCi of sestamibi once target heart rate was achieved. Images were obtained using the SPECT gamma camera interlaced with the gating device. Images were obtained in supine position. Resting perfusion study was performed on 11/28/2024. Patient was administered 40 mCi of sestamibi intravenously at rest. Images were then obtained in supine position. Total DLP 126 mGy-cm. Images were processed with the software and compared side to side in short axis, horizontal long axis and vertical long axis views. FINDINGS: Raw aquisition reviewed. The stress perfusion study showed decreased tracer uptake in the distal part of anterior wall. Some improvement with CT attenuation correction and hence could be components of soft tissue attenuation artifact. Also reduced uptake in the distal part of inferior wall that improves with CT attenuation correction and hence probably from diaphragmatic attenuation artifact The gated study shows mildly reduced LV systolic function with calculated LVEF of 49%. LV cavity is mildly dilated in size. The gated study shows normal wall thickening and contraction of segments. Resting study shows reduced tracer uptake in the distal part of anterior wall. No change with CT attenuation correction. Gating at rest reveals normal wall motion with ejection fraction at 47%. The findings are consistent with small mostly fixed appearing distal anterior defect. Small reversible distal inferior defect which could be artifactual. NM/NM cardiolite stress test IMPRESSION: 1. Myocardial perfusion imaging study shows mostly fixed distal anterior defect, artifact vs prior infarct. Small reversible distal inferior defect, probable diaphragmatic attenuation artifact. Less likely small area of ischemia. 2. Gated LVEF is 49% during stress and 47% during rest. 3. Transient ischemic dilatation not present. EKG component of the test reported separately. Electronically signed by: Je Levi MD 11/29/2024 11:12 AM EDT
--- NOTE | 2024-11-24 09:41 | CA_ITS ---
Acquisition Time: 2024-11-24 09:50:31 Total Exercise Time: 00:08:15 Test Indications: CP Medications: SEE H&P Protocol: KELSY Max HR: 146 BPM 85% of Pred: 171 BPM Max BP: 138/82 mmHG Max Work Load: 10.1 METS Exercise stress test with exercise 8 mins 15 secs of Kelsy Protocol, achieving 85% MPHR, with reports of SOB, no chest pain, without any arrythmias, with normotensive response to exercise. Without any EKG changes meeting criteria for ischemia. In recovery, pt's breathing returned to baseline. Nuclear images pending. Test reviewed with Dr. Oseguera. Referred By: Varun Will Electronically Signed By: Naresh Arteaga
--- OUTSIDE RECORDS SUMMARY | 2024-11-24 10:38 | XMS_ITS | Clinical Summary ---
Author Organization [facility] Address [address] [place] [address] Phone Care Team Providers Care Informatics Nurse Name Role Phone Yadira Wilder MD Primary Care Provider [phone] Allergies No known active allergies Medications amitriptyline (ELAVIL) 25 mg tablet Take 1 tablet (25 mg total) by mouth at bedtime. Active Active Problems Problem Noted Date Diagnosed Date Headache 04/09/2010 Encounters Date Type Department Care Team Description 09/25/2024 2:30 PM EDT Ancillary Procedure [facility] [address] [facility] [address] [place] [address] Aneurysm of ascending aorta without rupture ([facility] V24) from Last 3 Months Immunizations Name Administration Dates Next Due Tdap Tetanus diptheria acell ular pertussis (Boostrix; Adacel) 7yo and older 06/24/2010 Surgical History Surgery Date Site/Laterality Comments KNEE SURGERY PROCEDURE: HISTORICAL KNEE SURGERY; COMMENT: meniscal repair , arthroscopic, Dr. Clements Medical History Medical History Date Comments Diabetes mellitus (CMS/HCC V24, CMS/HCC V28) Family History Relation Name Status Comments Father Alive [place] in late 30's , dm, CHF Mother [...] BMP Blood Test 06/20/2025 06/20/2024, 04/10/2024, 04/10/2010 RSV Immunization Adult Patients (1 - 1-dose 75+ series) 2050 HIV Screening Completed 06/24/2010 Hepatitis C Screening [...] (09/25/2024 3:21 PM EDT) Left Atrium Minor [place] 5.7 cm CV PACS Left Atrium Major [place] 6.0 cm CV PACS LA Area Sys [...] mmol/L LAB CHEMISTRY METHOD 06/20/2024 1:15 AM [facility] Potassium 3.8 3.5 - 5.5 mmol/L LAB CHEMISTRY METHOD 06/20/2024 1:15 AM [facility] Chloride 100 96 - 110 mmol/L LAB CHEMISTRY METHOD 06/20/2024 1:15 AM [facility] CO2 29 21 - 32 mmol/L LAB CHEMISTRY METHOD 06/20/2024 1:15 AM [facility] Anion Gap 5 3 - 11 LAB CHEMISTRY METHOD 06/20/2024 1:15 AM [facility] Glucose 342(H) 70 - 100 mg/dL LAB CHEMISTRY METHOD 06/20/2024 1:15 AM [facility] BUN 11 5 - 25 mg/dL LAB CHEMISTRY METHOD 06/20/2024 1:15 AM [facility] Creatinine 0.82 0.70 - 1.30 mg/dL LAB CHEMISTRY METHOD 06/20/2024 1:15 AM [facility] eGFR 108 >=60 mL/min/1. 73m2 LAB CHEMISTRY METHOD 06/20/2024 1:15 AM [facility] Comment:Calculation based on the Chronic Kidney Disease Epidemiology Collaboration (CKD-EPI) equation refit without adjustment for race. BUN/Creatinine Ratio 13.4 LAB CHEMISTRY METHOD 06/20/2024 1:15 AM [facility] Calcium 9.0 8.5 - 10.5 mg/dL LAB CHEMISTRY METHOD 06/20/2024 1:15 AM [facility] AST (SGOT) 23 10 - 42 unit/L LAB CHEMISTRY METHOD 06/20/2024 1:15 AM [facility] ALT (SGPT) 29 10 - 60 unit/L LAB CHEMISTRY METHOD 06/20/2024 1:15 AM [facility] Alkaline Phosphatase 117 42 - 121 unit/L LAB CHEMISTRY METHOD 06/20/2024 1:15 AM [facility] Total Protein 7.0 6.0 - 8.0 g/dL LAB CHEMISTRY METHOD 06/20/2024 1:15 AM [facility] Albumin 3.6 3.2 - 5.0 g/dL LAB CHEMISTRY METHOD 06/20/2024 1:15 AM [facility] Total Bilirubin 0.4 0.0 - 1.4 mg/dL LAB CHEMISTRY METHOD 06/20/2024 1:15 AM [facility] Blood Venous blood specimen / Unknown Venipuncture / Unknown 06/20/2024 12:30 AM EDT 06/20/2024 12:40 AM EDT us Jr Guzman MD LAB BLOOD ORDERABLES Final Resu lt [facility] [address] [place] [address], * HIV Screening (06/24/2010) HIV Screening ABSTRACTED [...] Health Maintenance Insurance [employer] Care Teams Informatics Nurse Relationship Specialty Start Date End Date Yadira Wilder MD [address] [place] [address] PCP - General Internal Medicine 04/10/24
--- OUTSIDE RECORDS SUMMARY | 2024-11-24 10:38 | XMS_ITS | Clinical Summary ---
Author Organization [facility], Address [address] [place] [address] [place] [address] Phone Care Team Providers Care Tire Repairer Name Role Phone Yadira Wilder MD Primary Care Provider [phone] Allergies No known active allergies Medications amLODIPine [...] Influenza Vaccine (#1) 2024 Insurance Care Teams Tire Repairer Relationship Specialty Start Date End Date Yadira Wilder MD [address] [place] [address] [phone] PCP - General Internal Medicine 01/10/20
== END ==
LOC: HO.CARD 09:37
PROVIDERS: PCP Internal Medicine; Visit Provider Internal Medicine Cardiovascular Disease
DX: R07.89 Other chest pain (principal)
CPT/HCPCS: 78452; 93017; A9500

== ENCOUNTER → 2024-11-24 09:41 | Outpatient (BNV) | payer OTHER, SELFPAY | PROVIDERS: PCP Internal Medicine | DX: R06.02 Shortness of breath (principal) | CPT/HCPCS: 78452; 93016; 93018 ==

== ENCOUNTER 2025-02-06 10:02 | Outpatient (AMB) | payer OTHER, SELFPAY ==
--- NOTE | 2025-02-06 14:00 | MHC.PC.OV ---
Intake Visit Reasons: 3 months f/up - call at time of visit Allergies No Known Allergies Allergy (Verified 11/07/24 11:53) Medication List - Last Reconciled 02/06/25 by Yadira Wilder MD amlodipine 10 mg PO DAILY 90 days aspirin 81 mg PO DAILY atorvastatin (Lipitor) 40 mg PO DAILY bisacodyl (Dulcolax (bisacodyl)) 10 mg (2 x 5 mg) PO BEDTIME blood sugar diagnostic (FreeStyle Lite Strips) USE TO CHECK BLOOD SUGARS THREE TIMES DAILY AND IF SYMPTOMATIC WITH HYPO/HYPERGLYCEMIA cholecalciferol (vitamin D3) 25 mcg PO DAILY 90 days citalopram 40 mg PO DAILY clobetasol 0.05% 1 appl topical BEDTIME docusate sodium 100 mg PO DAILY doxycycline hyclate 100 mg PO BID dulaglutide 4.5 mg (0.5 mL) subcut QWEEK 30 days famotidine 40 mg PO DAILY FreeStyle Soniya 3 [place] (blood-glucose,hims coder,cont) As directed NS FreeStyle Soniya 3 Sensor (blood-glucose sensor) As directed NS gabapentin 300 mg PO BID glipizide 10 mg PO BID 90 days insulin glargine U-300 conc 60 units (0.2 mL) subcut BID 90 days insulin lispro (Humalog KwikPen (U-100) Insulin) 10 units (0.1 mL) subcut TID 90 days lancets (FreeStyle Lancets) Use to check blood sugars three times daily and if symptomatic with hypo/hyperglycemia meclizine 25 mg PO BID PRN methylcellulose (laxative) (Citrucel) 500 mg PO DAILY nystatin 1 appl topical DAILY 30 days nystatin 1 appl topical DAILY 30 days ondansetron 4 mg PO Q8H PRN pantoprazole 40 mg PO QAM pen needle, diabetic (Easy Comfort Pen Traphill) Once at night polyethylene glycol 3350 (Miralax) 17 grams PO DAILY Tobacco use date assessed: 07/14/24 Dental Screening Dental Screen Date: 07/14/24 HPI 3 months f/up - call at time of visit HPI Details was admitted at [facility] overnight when he presented with a few days of nausea, vomiting, cramping, and bound to have Covid. He was hydrated and was started on Paxlovid and then was discharged. Currently, patient is still taking Paxlovid three more days left, it is causing strange taste in his mouth he tell me. His vomiting has stopped. He is taking Zofran as needed and need a refill. He has started to eat solid food. Patient an appointment for regular follow up on of this month. He will come into the clinic for that. [facility] Medical History Ascending aortic aneurysm Paresthesias Depression Anxiety Neck pain Hypersomnia Snoring Obstructive sleep apnea Herpes simplex type 1 antibody positive Lumbar pain Hip pain, right Microalbuminuria Diabetic nephropathy Restless leg syndrome Vitamin D deficiency Chronic GERD Depression, major, recurrent Hypertension, essential Lipid disorder Diabetes 1.5, managed as type 2 Surgical History History of esophagogastroduodenoscopy (EGD) Hx of colonoscopy H/O knee surgery No pertinent past surgical history Family History Father Stroke Diabetes mellitus Kidney disease Mother HTN (hypertension) Brother No problems noted. Sister No problems noted. Sister No problems noted. Sister No problems noted. Social History Housing: Apartment Alcohol intake: current Alcohol intake frequency: 3 or more drinks per day Alcohol type: hard liquor Patient Tobacco Use Status: Former Tobacco user Cigarettes Per Day: 1 e-Cigarette/Vaping Use: Currently Using Substance Use Type: Marijuana Current occupational status: employed Cognitive needs: No Hearing needs: No Vision needs: Yes Questionnaire Thrive Questionnaire Date Thrive assessed: 11/07/24 ELIZABETH-7 AMB Questionnaire ELIZABETH-7 Date ELIZABETH - 7 assessed: 05/16/24 Source: Developed by Drs. Bakari Escobedo, Shireen Riley, Luis Leo and colleagues, with an educational janay from [employer]. Review of Systems Const Denies chills and Denies fever(s) ENT Denies epistaxis and Denies nasal discharge Card Denies chest pain Resp Denies chest congestion, Denies cough and Denies hemoptysis GI Denies diarrhea Skin/Breast Denies rash Neuro Reports no additional complaints Psych Reports no additional complaints Endo Reports no additional complaints Physical exam (Primary Care) Tobacco/Smoking Status: Tobacco use Status Tobacco use date assessed 07/14/24 11/07/24 11:46 Patient Tobacco Use Status Former Tobacco user 11/07/24 11:46 e-Cigarette/Vaping Use Currently Using 11/07/24 11:46 Thrive Assessment: Date of Thrive Assessment Date Thrive assessed 11/07/24 11/07/24 11:46 Telehealth Telehealth Telehealth Platform: BeVocal Location of provider rendering services: practice address Location of patient: address on file Patient Identification confirmed using: Name, : Yes Telehealth method: video Patient verbally consented to treatment: Yes Patient verbally consented to billing insurance company: Yes Patient informed of any privacy concerns related to visit: Yes Minutes spent on Phone/Video with Pt.: 13 Coding Level of Care Code Tele Est Pt Level 3 (26233) Diagnoses Hospital discharge follow-up Z09 COVID-19 virus infection U07.1 Assessment & Plan Assessment & Plan (1) Hospital discharge follow-up: Code(s): Z09 - Encounter for follow-up examination after completed treatment for conditions other than malignant neoplasm Category: Medical (2) COVID-19 virus infection: Code(s): U07.1 - COVID-19 Category: Medical Plan was admitted at [facility] overnight when he presented with a few days of nausea, vomiting, cramping, and bound to have Covid. He was hydrated and was started on Paxlovid and then was discharged. Currently, patient is still taking Paxlovid three more days left, it is causing strange taste in his mouth he tell me. His vomiting has stopped. He is taking Zofran as needed and need a refill. He has started to eat solid food. Patient an appointment for regular follow up on of this month. He will come into the clinic for that. Medications: Refilled ondansetron 4 mg PO Q8H PRN 20 tabs 0RF nausea and vomiting
== END 2025-02-06 14:11 | disposition home or self-care (01) ==
LOC: HO.HMCC 10:02
PROVIDERS: PCP Internal Medicine; Visit Provider Internal Medicine
DX: Z09 Encounter for follow-up examination after completed treatment for conditions other than malignant neoplasm (principal); U07.1 COVID-19